=== PATIENT | male | born 1995 | race Caucasian/White ===

== ENCOUNTER 2016-06-02 21:53 | Observation (INO) | payer BC ==
[~2016-06-02] VITALS: Ht 180.3 cm; Wt 107.0 kg
[~2016-06-02 21:53] MED LIST: ESCI10TA17 PO; LORA-741 PO; NPR500 PO; ONDA4TAB10 SL; SUMA50TA15 PO; TRAM-10 PO
[2016-06-02] MEDS ORDERED: SODIUM CHLORIDE 0.9% 1000ML 1,000 ML IV STA ×2 (22:13→22:55)
--- NOTE | 2016-06-02 22:32 | DIAGNOSTIC IMAGING REPORT ---
CHEST ONE VIEW PORTABLE HISTORY: cough, fever COMPARISON: Chest 12/12/2015. FINDINGS: The lungs are clear. Cardiac silhouette is top normal in size. No pleural effusions. No pneumothorax. IMPRESSION: No acute process. Electronically signed by: Alex Wilks M.D. 06/02/2016 10:30 PM Dictated Date/Time: 06/02/2016 10:29 PM
[2016-06-02] MEDS ORDERED: OMEP20CA9 PO (22:34)
[2016-06-02] MEDS ORDERED: ONDA4TAB46 PO (22:34)
[2016-06-02 22:36] LABS: BASO % 0.3 %; BASO ABS # 0.02 K/uL (0-0.2); COMPLETE YES; EOS % 0.9 %; HEMATOCRIT 43.7 % (42-52); IG% 0.3 %; LYMPH % 35.4 %; LYMPH ABS # 2.38 K/uL (1.2-3.4); MEAN CELL VOLUME 85.2 fL (80-100); MEAN CORPUSCULAR HEMOGLOBIN 31.6 pg (25-34); MEAN CORPUSCULAR HGB CONC 37.1 g/dl (32-36); MEAN PLATELET VOLUME 10.6 fL (7.4-10.4); NEUT % 57.1 %; PLATELET COUNT 171 K/uL (130-400); RED BLOOD COUNT 5.13 M/uL (4.7-6.1); WHITE BLOOD COUNT 6.72 K/uL (4.8-10.8)
[2016-06-02 22:54] LABS: BUN/CREATININE RATIO 6.9 (10-20); CALCIUM 9.1 mg/dl (8.5-10.1); CREATININE 0.91 mg/dl (0.60-1.40); POTASSIUM 3.5 mmol/L (3.5-5.1)
[2016-06-02 22:57] LABS: ALB/GLOB RATIO 1.5 (0.9-2)
[2016-06-02] MEDS ORDERED: XYLOCAINE 1%/SOD BICARB 20 ML VIAL INFIL ONE (23:30)
--- NOTE | 2016-06-02 23:43 | EMERGENCY ROOM VISIT NOTE ---
ED Visit Note First contact with patient: 22:07 This Patient was discussed with the physician [employer]former Coil Winder, Anna Barker PA-C. The pertinent historical and physical exam findings were confirmed. I agree with the studies ordered and with the interpretations of these studies. I agree with the disposition and care plan. Lumbar Puncture Indication: Fever and headache, possible meningitis. Verbal consent was obtained after the risks and benefits were explained, including but not limited to headache, bleeding/clotting, scarring, infection, pain, and bone/joint/nerve damage. At this time, the risks of the procedure are less than the risks of NOT performing the procedure. A time out was taken and the correct patient and site identified. The patient was placed in the seated position and the back was prepped with betadine and draped in the standard fashion. The L3 intervertebral space was identified, anesthetized locally with 1 % lidocaine without epinephrine, and the spinal needle was inserted through the skin with the bevel parallel to the dural fibers. The needle was carefully advanced into the lumbar cistern and 4 tubes of clear CSF was obtained. The stylet was replaced and the needle was removed. A bandaid was placed and the patient was placed in the supine position. The patient tolerated the procedure well and there were no complications.
[2016-06-02] MEDS ORDERED: MoRPHine SULFATE 4 MG/ML 1 ML CARP\\VIAL ONE (23:45)
[2016-06-02 23:57] LABS: CSF APPEARANCE CLEAR; CSF COLOR COLORLESS; CSF XANTHOCHROMIC NO XANTHOCHROMIA
[2016-06-02 23:58] LABS: CSF CHEMISTRY TUBE # 2
[2016-06-03 00:06] LABS: CSF TOTAL PROTEIN 52.8 mg/dl (15.0-45.0)
--- NOTE | 2016-06-03 00:39 | EMERGENCY ROOM VISIT NOTE ---
History First contact with patient: 22:07 Chief Complaint: FLU LIKE SX Stated Complaint: FEVER,CHILLS,COUGH,WEAKNESS,COUGH,CONFUSION,GONZÁLES History of Present Illness The patient is a 21 year old male who presents to the Emergency Room with complaints of flulike symptoms which began when he woke up this morning. He states that when he woke up, he felt very weak. He took his temperature and it was 99F. He took Tylenol at that time. The patient reports that throughout the day his symptoms seem to worsen. He has a dry cough and at times has coughed so hard that he throws up. He has had body aches, nausea, neck pain and headache. He denies any diarrhea. He denies any chest pain, shortness of breath, abdominal pain, numbness or weakness. He rates his overall discomfort a 9/10. He does state that his temperature has been as high as 101F today. He last took Tylenol approximately 2 hours ago. 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 He states that he "does not feel like himself." Review of Systems A complete 10-point Review of Systems was discussed with the patient, with pertinent positives and negatives listed in the History of Present Illness. All remaining Review of Systems questions can be considered negative unless otherwise specified. Past Medical/Surgical History Medical Problems: (1) History of reconstruction of anterior cruciate ligament tear Family History Diabetes mellitus Heart disease Hypertension Social History Smoking Status: Current Every Day Smoker Alcohol Use: none Drug Use: none Marital Status: single Housing Status: lives with family Occupation Status: employed, student Current/Historical Medications Scheduled Escitalopram (Lexapro), 10 MG PO DAILY Omeprazole (Prilosec), 20 MG PO QAM Scheduled PRN Lorazepam (Ativan), 0.5 MG PO Q4H PRN for Anxiety Naproxen (Naprosyn), 500 MG PO UD PRN for Migraine Ondansetron Hcl (Zofran), 4 MG PO Q4 PRN for Nausea or Vomiting Sumatriptan Succinate (Imitrex), 50 MG PO UD PRN for Migraine Allergies Coded Allergies: Ampicillin (Verified Allergy, Intermediate, HIVES, 06/02/16) Cefuroxime (Verified Allergy, Mild, HIVES, 06/02/16) Cephalosporins (Verified Allergy, Unknown, 06/02/16) Clindamycin (Verified Allergy, Unknown, 06/02/16) Penicillins (Verified Allergy, Unknown, 06/02/16) Physical Exam Vital Signs Date Time Temp Pulse Resp B/P Pulse Ox O2 Delivery O2 Flow Rate FiO2 06/03/16 02:05 115 16 169/96 99 Room Air 06/03/16 01:20 95 18 144/86 96 Room Air 06/03/16 00:26 98 16 152/91 97 Room Air 06/02/16 23:11 94 16 162/96 Room Air 06/02/16 22:47 36.9 110 16 167/94 97 06/02/16 22:16 109 06/02/16 22:00 37.1 121 20 166/91 98 Room Air Physical Exam VITALS: Vitals are noted on the nurse's note and reviewed by myself. Vital signs stable. GENERAL: This is a 21-year-old male, in no acute distress, nondiaphoretic, well- developed well-nourished. SKIN: The skin was without rashes. EARS: External auditory canals clear, tympanic membranes pearly gomez without erythema or effusion bilaterally. EYES: Pupils equal round and reactive to light and accommodation. Conjunctivae without injection, sclerae without icterus. NOSE: Patent, turbinates without inflammation or discharge. No sinus tenderness. MOUTH: Mucous membranes moist. Tonsils are not enlarged. Pharynx without erythema or exudate. NECK: Supple without nuchal rigidity. There is mild tenderness to palpation of the posterior neck. Negative Brudzinski's. HEART: Regular rate and rhythm without murmurs gallops or rubs. LUNGS: Clear to auscultation bilaterally without wheezes, rales or rhonchi. No retractions or accessory muscle use. ABDOMEN: Soft, nontender to palpation. NEURO: Patient was alert and oriented to person place and time. Medical Decision & Procedures ER Provider Diagnostic Interpretation: CHEST ONE VIEW PORTABLE FINDINGS: The lungs are clear. Cardiac silhouette is top normal in size. No pleural effusions. No pneumothorax. IMPRESSION: No acute process. Laboratory Results 06/02/16 22:15 Red Blood Count 5.13, Mean Corpuscular Volume 85.2, Mean Corpuscular Hemoglobin 31.6, Mean Corpuscular Hemoglobin Concent 37.1, Mean Platelet Volume 10.6, Neutrophils (%) (Auto) 57.1, Lymphocytes (%) (Auto) 35.4, Monocytes (%) (Auto) 6.0, Eosinophils (%) (Auto) 0.9, Basophils (%) (Auto) 0.3, Neutrophils # (Auto) 3.84, Lymphocytes # (Auto) 2.38, Monocytes # (Auto) 0.40, Eosinophils # (Auto) 0.06, Basophils # (Auto) 0.02 06/02/16 22:15 Test 06/02/16 00:00 06/02/16 22:15 06/02/16 22:25 06/02/16 23:24 Influenza Type A Antigen Neg for Influ A (NEG) Influenza Type B Antigen Neg for Influ B (NEG) White Blood Count 6.72 K/uL (4.8-10.8) Red Blood Count 5.13 M/uL (4.7-6.1) Hemoglobin 16.2 g/dL (14.0-18.0) Hematocrit 43.7 % (42-52) Mean Corpuscular Volume 85.2 fL (80-100) Mean Corpuscular Hemoglobin 31.6 pg (25-34) Mean Corpuscular Hemoglobin Concent 37.1 g/dl (32-36) Platelet Count 171 K/uL (130-400) Mean Platelet Volume 10.6 fL (7.4-10.4) Neutrophils (%) (Auto) 57.1 % Lymphocytes (%) (Auto) 35.4 % Monocytes (%) (Auto) 6.0 % Eosinophils (%) (Auto) 0.9 % Basophils (%) (Auto) 0.3 % Neutrophils # (Auto) 3.84 K/uL (1.4-6.5) Lymphocytes # (Auto) 2.38 K/uL (1.2-3.4) Monocytes # (Auto) 0.40 K/uL (0.11-0.59) Eosinophils # (Auto) 0.06 K/uL (0-0.5) Basophils # (Auto) 0.02 K/uL (0-0.2) RDW Standard Deviation 39.9 fL (36.4-46.3) RDW Coefficient of Variation 12.9 % (11.5-14.5) Immature Granulocyte % (Auto) 0.3 % Immature Granulocyte # (Auto) 0.02 K/uL (0.00-0.02) Anion Gap 10.0 mmol/L (3-11) Est Creatinine Clear Calc Drug Dose 159.8 ml/min Estimated GFR () 139.1 Estimated GFR (Non- 120.0 BUN/Creatinine Ratio 6.9 (10-20) Calcium Level 9.1 mg/dl (8.5-10.1) Total Bilirubin 0.3 mg/dl (0.2-1) Aspartate Amino Transf (AST/SGOT) 27 U/L (15-37) Alanine Aminotransferase (ALT/SGPT) 38 U/L (12-78) Alkaline Phosphatase 79 U/L (45-117) Total Protein 7.6 gm/dl (6.4-8.2) Albumin 4.5 gm/dl (3.4-5.0) Globulin 3.1 gm/dl (2.5-4.0) Albumin/Globulin Ratio 1.5 (0.9-2) Monoscreen NEG (NEG) Lactic Acid Level 1.4 mmol/L (0.4-2.0) CSF Color COLORLESS CSF Appearance CLEAR CSF WBC 4 /uL (0-5) CSF RBC 9 /uL (0) CSF Xanthrochromic NO XANTHOCHROMIA CSF Cell Count Tube # 4 CSF Chemistry Tube # 2 CSF Glucose 56 mg/dl (40-70) CSF Total Protein 52.8 mg/dl (15.0-45.0) Medications Administered Medications (Trade) Dose Ordered Sig/[place] Route Start Time Stop Time Status Last Admin Dose Admin Sodium Chloride 1,000 ml @ 999 mls/hr Q1H1M STAT IV 06/02/16 22:13 06/02/16 23:13 DC 06/02/16 22:32 999 MLS/HR Sodium Chloride (Nss 1000ml) 1,000 ml @ 999 mls/hr Q1H1M STAT IV 06/02/16 22:55 06/02/16 23:55 DC 06/02/16 22:55 999 MLS/HR Morphine Sulfate (MoRPHine SULFATE INJ) 4 mg STK-MED ONCE .ROUTE 06/02/16 23:45 06/02/16 23:46 DC 06/02/16 23:45 4 MG Medical Decision Differential diagnosis includes influenza, pneumonia, mononucleosis, meningitis , encephalitis, viral syndrome, among others. The patient was evaluated as above. Labs were drawn and IV access was obtained. Imaging studies were performed and read by radiology as above. The patient was medicated with 2 L normal saline solution and 4 mg of morphine for headache. The patient was reassessed multiple times during their stay in the emergency department and remained in stable condition. The patient is a 21-year-old male who presents today complaining of flulike symptoms. Labs revealed no leukocytosis, electrolyte abnormalities or anemia. Influenza was negative. [place] screen was negative. Chest x-ray was unremarkable. The patient was complaining about significant neck pain involves examination was not suggestive of meningeal irritation, I did offer lumbar puncture to rule out meningitis and the patient was agreeable to this. Lumbar puncture was performed by Dr. Dgugan and CSF was sent for analysis. There was a minimal bump in protein but was otherwise negative. Gram stain showed no organisms. The patient may have a minimal element of viral meningitis but symptoms and workup here is certainly consistent with a viral illness. As the patient was preparing for discharge and went to the bathroom, he apparently saw the blood from his IV site, became vasovagal and had a possible syncopal episode. I reevaluated the patient and did have him drink Gatorade and eat crackers and landed bed for an additional 30 minutes. When he tended to stand up, the patient was not able to take more than 2 steps due to feeling weak and unbalanced. For this reason, the patient will not be able to be discharged. I discussed the case with the [facility] hospitalist, Dr. Hannah, who agreed to evaluate the patient. Impression Primary Impression: Viral illness Departure Information Dispostion Admitted as an inpatient Condition GOOD Referrals Harsh Aguilar M.D. (PCP) Patient Instructions A Signature Page, My [facility] Additional Instructions For pain/fever control, you can use the following [id number] medicines ( if >12 yo): - Regular strength (325mg/tab) Tylenol (acetaminophen) 2 tabs every 4-6 hours as needed. Do not exceed 12 tablets in a 24 hour period. Avoid taking more than 4 grams (4000 mg) of Tylenol per day. This includes any other sources of acetaminophen you may take on a regular basis. - Regular strength (200 mg/tab) Advil (ibuprofen) 1-2 tabs every 4-6 hours as needed. Do not exceed a dose of 3200 mg per day. Rest and drink plenty of fluids. Follow-up with the primary care provider in 2-3 days for further evaluation of your symptoms. Return to the emergency department with worsening headache, worsening neck pain , high fevers, or any other new/concerning symptoms.
[2016-06-03] MEDS ORDERED: MoRPHine SULFATE 4 MG/ML 1 ML CARP\\VIAL IV STA (02:08)
[2016-06-03] MEDS ORDERED: ONDANSETRON INJ 2 MG/ML 2 ML VIAL IV PRN (02:45)
--- NOTE | 2016-06-03 02:50 | History and Physical ---
History & Physical Date & Time of Service: Jun 03, 2016 at 02:39 Chief Complaint: Fever,Chills,Cough,Weakness,Cough,Confusion,[place] Primary Care Physician: Harsh Aguilar M.D. History of Present Illness Source: patient This is a 21 year old male with PMH of depression presents with flu-like symptoms, fevers at home, sweats, cough - presented here and CXR was performed and negative, labwork looked negative; he was c/o headaches - had an LP done; showed mild increase in protein, but no significant findings - he was about to be discharged, but noticed some blood from his IV site and became syncopal. States he feels really weak and lethargic. Continues to have headache. Past Medical/Surgical History Medical Problems: (1) History of reconstruction of anterior cruciate ligament tear Status: Resolved Family History Diabetes mellitus Heart disease Hypertension Social History Smoking Status: Current Every Day Smoker Drug Use: none Marital Status: single Occupational Status: employed, student Immunizations History of Influenza Vaccine: Yes History of Tetanus Vaccine?: Yes History of Pneumococcal: No History of Hepatitis B Vaccine: Yes Multi-Drug Resistant Organisms History of MDRO: No Allergies Coded Allergies: Ampicillin (Verified Allergy, Intermediate, HIVES, 06/02/16) Cefuroxime (Verified Allergy, Mild, HIVES, 06/02/16) Cephalosporins (Verified Allergy, Unknown, 06/02/16) Clindamycin (Verified Allergy, Unknown, 06/02/16) Penicillins (Verified Allergy, Unknown, 06/02/16) Home Medications Scheduled Escitalopram (Lexapro), 10 MG PO DAILY Omeprazole (Prilosec), 20 MG PO QAM Scheduled PRN Lorazepam (Ativan), 0.5 MG PO Q4H PRN for Anxiety Naproxen (Naprosyn), 500 MG PO UD PRN for Migraine Ondansetron Hcl (Zofran), 4 MG PO Q4 PRN for Nausea or Vomiting Sumatriptan Succinate (Imitrex), 50 MG PO UD PRN for Migraine Review of Systems Constitutional: + chills, + fatigue, + fever, + sweats, + weakness, No weight loss Respiratory: + cough, No dyspnea at rest, No dyspnea on exertion, No hemoptysis , No shortness of breath, No sputum, No wheezing Cardiovascular: No chest pain, No edema, No palpitations Abdomen: No GI bleeding, No constipation, No diarrhea, No nausea, No pain, No vomiting Musculoskeletal: No joint pain, No muscle pain Genitourinary - Male: No dysuria, No hematuria, No urinary frequency, No urinary urgency Neurologic: No memory loss Integumentary: No rash Allergic / Immunologic: No environmental allergies, No seasonal allergies Physical Exam Vital Signs Date Time Temp Pulse Resp B/P Pulse Ox O2 Delivery O2 Flow Rate FiO2 06/03/16 02:05 115 16 169/96 99 Room Air 06/03/16 01:20 95 18 144/86 96 Room Air 06/03/16 00:26 98 16 152/91 97 Room Air 06/02/16 23:11 94 16 162/96 Room Air 06/02/16 22:47 36.9 110 16 167/94 97 06/02/16 22:16 109 06/02/16 22:00 37.1 121 20 166/91 98 Room Air General Appearance: + pertinent finding (+anxiety, tearful) Head: normocephalic, atraumatic Eyes: normal inspection ENT: hearing grossly normal Neck: supple Respiratory/Chest: lungs clear, normal breath sounds, no respiratory distress, no accessory muscle use Cardiovascular: regular rate, rhythm, no edema, no murmur Abdomen/GI: normal bowel sounds, non tender, soft Extremities/Musculoskelatal: normal capillary refill, no pedal edema Neurologic/Psych: no motor/sensory deficits, alert, + depressed affect (+ anxious) Skin: normal color Lymphatic: no adenopathy Diagnostics Laboratory Results Results Past 24 Hours Test 06/02/16 22:15 06/02/16 22:25 06/02/16 23:24 Range/Units White Blood Count 6.72 4.8-10.8 K/uL Red Blood Count 5.13 4.7-6.1 M/uL Hemoglobin 16.2 14.0-18.0 g/dL Hematocrit 43.7 42-52 % Mean Corpuscular Volume 85.2 80-100 fL Mean Corpuscular Hemoglobin 31.6 25-34 pg Mean Corpuscular Hemoglobin Concent 37.1 32-36 g/dl Platelet Count 171 130-400 K/uL Mean Platelet Volume 10.6 7.4-10.4 fL Neutrophils (%) (Auto) 57.1 % Lymphocytes (%) (Auto) 35.4 % Monocytes (%) (Auto) 6.0 % Eosinophils (%) (Auto) 0.9 % Basophils (%) (Auto) 0.3 % Neutrophils # (Auto) 3.84 1.4-6.5 K/uL Lymphocytes # (Auto) 2.38 1.2-3.4 K/uL Monocytes # (Auto) 0.40 0.11-0.59 K/uL Eosinophils # (Auto) 0.06 0-0.5 K/uL Basophils # (Auto) 0.02 0-0.2 K/uL RDW Standard Deviation 39.9 36.4-46.3 fL RDW Coefficient of Variation 12.9 11.5-14.5 % Immature Granulocyte % (Auto) 0.3 % Immature Granulocyte # (Auto) 0.02 0.00-0.02 K/uL Sodium Level 141 136-145 mmol/L Potassium Level 3.5 3.5-5.1 mmol/L Chloride Level 106 98-107 mmol/L Carbon Dioxide Level 25 21-32 mmol/L Anion Gap 10.0 3-11 mmol/L Blood Urea Nitrogen 6 7-18 mg/dl Creatinine 0.91 0.60-1.40 mg/dl Est Creatinine Clear Calc Drug Dose 159.8 ml/min Estimated GFR () 139.1 Estimated GFR (Non- 120.0 BUN/Creatinine Ratio 6.9 10-20 Random Glucose 99 70-99 mg/dl Calcium Level 9.1 8.5-10.1 mg/dl Total Bilirubin 0.3 0.2-1 mg/dl Aspartate Amino Transf (AST/SGOT) 27 15-37 U/L Alanine Aminotransferase (ALT/SGPT) 38 12-78 U/L Alkaline Phosphatase 79 45-117 U/L Total Protein 7.6 6.4-8.2 gm/dl Albumin 4.5 3.4-5.0 gm/dl Globulin 3.1 2.5-4.0 gm/dl Albumin/Globulin Ratio 1.5 0.9-2 Monoscreen NEG NEG Lactic Acid Level 1.4 0.4-2.0 mmol/L CSF Color COLORLESS CSF Appearance CLEAR CSF WBC 4 0-5 /uL CSF RBC 9 0 /uL CSF Xanthrochromic NO XANTHOCHROMIA CSF Cell Count Tube # 4 CSF Chemistry Tube # 2 CSF Glucose 56 40-70 mg/dl CSF Total Protein 52.8 15.0-45.0 mg/dl Microbiology Results 06/02/16 Blood Culture, Received Pending 06/02/16 Blood Culture, Received Pending 06/02/16 Gram Stain - Preliminary, Resulted 06/02/16 CSF Culture, Resulted Pending CXR normal Impression Assessment and Plan This is a 21 year old male with PMH of depression presents with flu-like symptoms Viral Infection -->possibly an viral URI -->+cough, +fevers -->+tachycardia, though very anxious -->rapid flu is negative -->CXR negative -->LP performed - no significant findings -->monospot negative -->will obtain flu PCR -->give IVFs, supportive care, rest -->observe overnight and d/c in AM Headaches -->LP done earlier, but headache prior to LP -->has a history of migraines -->will give one dose of Toradol -->may need to restart Imitrex Depression/Anxiety -->continue Lexapro Elevated Blood Pressure reading -->unsure if this is related to viral infection or anxiety -->should f/u as outpatient with PCP and have recheck of BP observe overnight and hopefully d/c home in AM VTE Prophylaxis VTE Risk Assessment Done? Y/N: Yes Risk Level: Very Low
[2016-06-03] MEDS ORDERED: KETOROLAC TROMETHAMINE 30 MG/ML VIAL IV STA (03:52)
[2016-06-03] MEDS: SODIUM CHLORIDE 0.9% 1000ML 1,000 ML IV SCH ×4 (04:11→18:45)
[2016-06-03] MEDS ORDERED: IV FLUIDS COMPLETED PRN (04:15)
[2016-06-03 04:33] VITALS: BP 136/78; PULSE 79; TEMP 36.7; O2SAT 97; Ht 180.3 cm; Wt 107.0 kg
[2016-06-03] MEDS: LORAZEPAM 0.5 MG TAB PO PRN ×4 (04:57→19:08)
[2016-06-03 05:17] LABS: INFLUENZA A PCR Neg for Influ A (NEG); INFLUENZA B PCR Neg for Influ B (NEG)
[2016-06-03] MEDS ORDERED: PNEUMOCOCCAL ADMINISTRATION CHARGE ONE (06:15)
[2016-06-03] MEDS ORDERED: PNEUMOCOCCAL POLYSACCHARIDES 25 MCG/0.5 ML VIAL/SYR IM. ONE (06:15)
[2016-06-03 07:58] VITALS: BP 116/72; PULSE 76; TEMP 36.5; O2SAT 96
[2016-06-03] MEDS: ESCITALOPRAM OXALATE 10 MG TAB PO SCH (08:51)
[2016-06-03] MEDS: PANTOprazole SOD 40 MG TAB PO SCH (08:51)
[2016-06-03] MEDS: ACETAMINOPHEN 325 MG TAB PO PRN ×3 (08:52→19:08)
[2016-06-03 11:40] LABS: HEMATOCRIT 40.7 % (42-52); MEAN CORPUSCULAR HEMOGLOBIN 31.2 pg (25-34); MEAN CORPUSCULAR HGB CONC 35.9 g/dl (32-36); MEAN PLATELET VOLUME 9.9 fL (7.4-10.4); PLATELET COUNT 157 K/uL (130-400); RED BLOOD COUNT 4.68 M/uL (4.7-6.1); WHITE BLOOD COUNT 6.67 K/uL (4.8-10.8)
--- NOTE | 2016-06-03 11:58 | DIAGNOSTIC IMAGING REPORT ---
HEAD CT NONCONTRAST CT DOSE: 687.98 mGy.cm HISTORY: weakness, ambulatory dysfunction, headache TECHNIQUE: Multiaxial CT images of the head were performed without the use of intravenous contrast. Automated exposure control was utilized for this study. Comparison: Head CT 04/09/2016. Findings: The paranasal sinuses and mastoid air cells are clear. The calvarium and skull base are intact. The ventricles and sulci are within normal limits. There is no mass, hematoma, midline shift, or acute infarct. Impression: No acute intracranial abnormality. Electronically signed by: Alex Wilks M.D. 06/03/2016 11:56 AM Dictated Date/Time: 06/03/2016 11:54 AM
--- NOTE | 2016-06-03 13:38 | Progress Note ---
Medicine Progress Note Date & Time of Visit: Jun 03, 2016 at 13:21. Subjective Pt was seen and examined Lying in bed with no acute distress Pt said that he feels very weak Nurse called this morning to notify that he has a unsteady gait Pt said that he under a lot of (family and personal) stress now he said that he is anxiety is getting worst denies any chest pain, palpitation and SOB Objective Last 8 Hrs Date Time Temp Pulse Resp B/P Pulse Ox O2 Delivery O2 Flow Rate FiO2 06/03/16 10:21 Room Air 06/03/16 07:58 36.5 76 16 116/72 96 Room Air Physical Exam: General- no acute distress, flat affect Head- atraumatic Eyes- PERRL, EOMI ENT- oropharynx clear Neck- supple, no JVD Lungs- clear to auscultation and percussion Heart- regular rhythm; no murmur Abdomen- normal bowel sounds, soft Extremities- no pretibial edema, no calf tenderness Neuro- alert, oriented x 3; PERRL, EOMI; no facial palsy; no dysarthria; motor 5 /5 bilaterally; finger to nose intact bilaterally Skin- warm & dry Laboratory Results: Last 24 Hours Test 06/02/16 22:15 06/02/16 22:25 06/02/16 23:24 06/03/16 03:40 White Blood Count 6.72 K/uL Red Blood Count 5.13 M/uL Hemoglobin 16.2 g/dL Hematocrit 43.7 % Mean Corpuscular Volume 85.2 fL Mean Corpuscular Hemoglobin 31.6 pg Mean Corpuscular Hemoglobin Concent 37.1 g/dl Platelet Count 171 K/uL Mean Platelet Volume 10.6 fL Neutrophils (%) (Auto) 57.1 % Lymphocytes (%) (Auto) 35.4 % Monocytes (%) (Auto) 6.0 % Eosinophils (%) (Auto) 0.9 % Basophils (%) (Auto) 0.3 % Neutrophils # (Auto) 3.84 K/uL Lymphocytes # (Auto) 2.38 K/uL Monocytes # (Auto) 0.40 K/uL Eosinophils # (Auto) 0.06 K/uL Basophils # (Auto) 0.02 K/uL RDW Standard Deviation 39.9 fL RDW Coefficient of Variation 12.9 % Immature Granulocyte % (Auto) 0.3 % Immature Granulocyte # (Auto) 0.02 K/uL Sodium Level 141 mmol/L Potassium Level 3.5 mmol/L Chloride Level 106 mmol/L Carbon Dioxide Level 25 mmol/L Anion Gap 10.0 mmol/L Blood Urea Nitrogen 6 mg/dl Creatinine 0.91 mg/dl Est Creatinine Clear Calc Drug Dose 159.8 ml/min Estimated GFR () 139.1 Estimated GFR (Non- 120.0 BUN/Creatinine Ratio 6.9 Random Glucose 99 mg/dl Calcium Level 9.1 mg/dl Total Bilirubin 0.3 mg/dl Aspartate Amino Transf (AST/SGOT) 27 U/L Alanine Aminotransferase (ALT/SGPT) 38 U/L Alkaline Phosphatase 79 U/L Total Protein 7.6 gm/dl Albumin 4.5 gm/dl Globulin 3.1 gm/dl Albumin/Globulin Ratio 1.5 Monoscreen NEG Lactic Acid Level 1.4 mmol/L CSF Color COLORLESS CSF Appearance CLEAR CSF WBC 4 /uL CSF RBC 9 /uL CSF Xanthrochromic NO XANTHOCHROMIA CSF Cell Count Tube # 4 CSF Chemistry Tube # 2 CSF Glucose 56 mg/dl CSF Total Protein 52.8 mg/dl Influenza Type A (RT-PCR) Neg for Influ A Influenza Type B (RT-PCR) Neg for Influ B Test 06/03/16 11:30 White Blood Count 6.67 K/uL Red Blood Count 4.68 M/uL Hemoglobin 14.6 g/dL Hematocrit 40.7 % Mean Corpuscular Volume 87.0 fL Mean Corpuscular Hemoglobin 31.2 pg Mean Corpuscular Hemoglobin Concent 35.9 g/dl RDW Standard Deviation 42.0 fL RDW Coefficient of Variation 13.2 % Platelet Count 157 K/uL Mean Platelet Volume 9.9 fL Vitamin B12 Level 602 pg/mL Folate 15.34 ng/mL Thyroid Stimulating Hormone (TSH) 1.350 uIu/ml Date/Time Source Procedure Growth Status 06/02/16 22:25 Blood Blood Culture Pending Received 06/02/16 22:15 Blood Blood Culture Pending Received 06/02/16 23:35 Cerebral Spinal Fluid Gram Stain - Final Resulted 06/02/16 23:35 Cerebral Spinal Fluid CSF Culture Pending Resulted Assessment & Plan Malaise and Weakness possibly related to viral etiology rapid flu and Flu PCR negative CXR negative LP performed - no significant findings monospot negative give IVFs, supportive care, rest Electrolytes WNL Hbg and B12 normal No focal neurology deficit Headaches LP done earlier, but headache prior to LP has a history of migraines CT head done today negative Unsteady gait No focal neurology deficit finding on exam CT head negative Physical therapy fall precaution Depression/Anxiety Worsening denies any suicidal thought continue Lexapro PCP or psychiatrist to consider to increase lexapro Elevated Blood Pressure reading Mostly related to anxiety Continue monitor stable Code Status Full code DVT px Pt ambulates Disposition will discharge home today Follow up appointment with your PCP Dr. Aguilar on 06/07 at 11:10 am Consultants: PT Current Inpatient Medications: Current Inpatient Medications Medications (Trade) Dose Ordered Sig/[place] Route Start Time Stop Time Status Last Admin Dose Admin Acetaminophen (Tylenol Tab) 650 mg Q4H PRN PO 06/03/16 02:45 07/03/16 02:44 06/03/16 12:38 650 MG Ondansetron HCl (Zofran Inj) 4 mg Q6H PRN IV 06/03/16 02:45 07/03/16 02:44 Escitalopram Oxalate (Lexapro Tab) 10 mg DAILY PO 06/03/16 08:00 07/03/16 08:59 06/03/16 08:51 10 MG Lorazepam (Ativan Tab) 0.5 mg Q4H PRN PO 06/03/16 02:45 07/03/16 02:44 06/03/16 12:37 0.5 MG Pantoprazole Sodium 40 mg 40 mg QAM PO 06/03/16 08:00 07/03/16 08:59 06/03/16 08:51 40 MG Sodium Chloride (Nss 1000ml) 1,000 ml @ 125 mls/hr Q8H IV 06/03/16 02:45 07/03/16 02:44 06/03/16 12:38 125 MLS/HR Miscellaneous (Iv Fluids Completed) 1 ea PRN PRN N/A 06/03/16 04:15 06/03/17 04:14 06/03/16 12:38 1 EA
[2016-06-03 15:06] VITALS: BP 117/78; PULSE 65; TEMP 36.7; O2SAT 96
[2016-06-03 16:05] VITALS: O2SAT 96
--- NOTE | 2016-06-03 17:26 | Discharge Instructions ---
Discharge Instructions Admission Reason for Admission: Viral Illness Discharge Discharge Diagnosis / Problem: Malaise, Anxiety Discharge Goals Goal(s): Decrease discomfort, Improve function, Improve disease control Activity Recommendations Activity Limitations: resume your previous activity . Instructions / Follow-Up Instructions / Follow-Up Follow up appointment with your primary care provider Dr. Aguilar on 06/07 at 11: 10 am Fall precaution Note was given to return to work on Saturday Nurse liaison arranged for outpatient psych follow up. they will call him for the appointment. Current Hospital Diet Patient's current hospital diet: Regular Diet Discharge Diet Recommended Diet: Regular Diet Pending Studies Studies pending at discharge: no Medical Emergencies . Who to Call and When: Medical Emergencies: If at any time you feel your situation is an emergency, please call 911 immediately. . Non-Emergent Contact Non-Emergency issues call your: Primary Care Provider Call Non-Emergent contact if: you have a fever, you have any medication questions . . "Provider Documentation" section prepared by Imani Aguilar. VTE Core Measure Inpt VTE Proph given/why not?: Treatment not indicated (able to ambulate)
[2016-06-03 17:58] VITALS: BP_SYST 117; BP_SYST 119; BP_DIAS 66; BP_DIAS 78; PULSE 55; PULSE 65; TEMP 36.6; TEMP 36.7; O2SAT 96; O2SAT 98
--- NOTE | 2016-06-03 22:34 | Progress Note ---
Progress Note Order placed for discharge home. Called from nurse that pt unable to walk to the bathroom due to unsteady gait. I came to his room to talk to him with his mother at bedside. Pt felt his legs were weak and was unable to stand. we helped him to go to the bathroom. Pt did not feel comfortable to go home and mother was not comfortable to care for him at home. Discussed with patient that his CT head and lab were negative. Pt was in tears. Discharged was cancel. Consult psych for conversion disorder. Mother said patient has been under a lot stress lately.
[2016-06-03] MEDS ORDERED: NURSING VERBAL MED ORDER ONE (23:15)
[2016-06-04] VITALS: O2SAT 96
[2016-06-04] MEDS: LORAZEPAM 0.5 MG TAB PO PRN ×2 (00:19→09:04)
[2016-06-04] MEDS: ACETAMINOPHEN 325 MG TAB PO PRN (00:20)
[2016-06-04 08:28] VITALS: BP 119/66; PULSE 55; TEMP 36.6; O2SAT 98
[2016-06-04] MEDS: ESCITALOPRAM OXALATE 10 MG TAB PO SCH (09:04)
[2016-06-04] MEDS: PANTOprazole SOD 40 MG TAB PO SCH (09:04)
--- NOTE | 2016-06-04 09:30 | Psychiatric Consultation ---
Consultation Identifying Data Simon is a 21 yo male who lives in [place] with his family. Consult is by Dr. Aguilar for anxiety and possible conversion disorder. Chief Complaint "just alot of stress". 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 He is currently on break from classes so not feeling as stressed as he was a few weeks ago but states that he anticipates anxiety to increase again when classes resume on 06/18/16. He is not on campus much so doesn't anticipate he'd be able to seek assistance at the student counseling center. He adds that he was initially started on Lexapro in high school for migraine headaches. He recently restarted it consistently about 3 weeks ago. He feels his mom thinks it's helpful but he is not sure and feels a bit tired on it, admittedly doesn't take it at a consistent time. He also uses prn Ativan about once a month (or less) for more severe breakthrough anxiety. He denies history of panic or any history of suicidal thoughts. He recognizes that he was emotional yesterday and denies that his mom dating someone is any big deal to him. He recalls feeling faint in the ED, just weak yesterday with some headache. He does desire to go home today. His labs were relatively normal and tested negative for flu but continues with cough/achiness/general flu like symptoms. Past Psychiatric History Current OP Treatment: no current treatment Prior OP Treatment: no prior treatment (meds by Dr. George) no prior psych hospitalizations or suicide attempts. Past Medical/Surgical History Problem List: (1) Upper respiratory infection (2) Headache (3) Concussion Allergies Allergies: Coded Allergies: Ampicillin (Verified Allergy, Intermediate, HIVES, 06/02/16) Cefuroxime (Verified Allergy, Mild, HIVES, 06/02/16) Cephalosporins (Verified Allergy, Unknown, 06/02/16) Clindamycin (Verified Allergy, Unknown, 06/02/16) Penicillins (Verified Allergy, Unknown, 06/02/16) Home Medications Scheduled Escitalopram (Lexapro), 10 MG PO DAILY Omeprazole (Prilosec), 20 MG PO QAM Scheduled PRN Lorazepam (Ativan), 0.5 MG PO Q4H PRN for Anxiety Naproxen (Naprosyn), 500 MG PO UD PRN for Migraine Ondansetron Hcl (Zofran), 4 MG PO Q4 PRN for Nausea or Vomiting Sumatriptan Succinate (Imitrex), 50 MG PO UD PRN for Migraine Family History Diabetes mellitus Heart disease Hypertension family psych history denied Alcohol Use Alcohol Use In Past 12 Months: Yes beer rarely Substance History rare pot Personal History Education: graduated from high school, started college ([employer], desires to become RN or PA) Work History: personal development coach Relationship History: never Children: none Legal History: none Abuse History: none Review of Systems Psych: denies symptoms other than stated above Constitutional: fatigue Cardiovascular: denied GI: denied, eating well Neurologic: feels unsteady due to weakness Remainder of 10 body systems also reviewed and denied other than noted above. Examination Vital Signs Vital Signs Past 12 Hours Date Time Temp Pulse Resp B/P Pulse Ox O2 Delivery O2 Flow Rate FiO2 06/04/16 08:28 36.6 55 16 119/66 98 Room Air 06/04/16 00:00 96 Room Air Laboratory Results Last 24 Hours Test 06/03/16 11:30 White Blood Count 6.67 K/uL Red Blood Count 4.68 M/uL Hemoglobin 14.6 g/dL Hematocrit 40.7 % Mean Corpuscular Volume 87.0 fL Mean Corpuscular Hemoglobin 31.2 pg Mean Corpuscular Hemoglobin Concent 35.9 g/dl RDW Standard Deviation 42.0 fL RDW Coefficient of Variation 13.2 % Platelet Count 157 K/uL Mean Platelet Volume 9.9 fL Vitamin B12 Level 602 pg/mL Folate 15.34 ng/mL Thyroid Stimulating Hormone (TSH) 1.350 uIu/ml Mental Examination During interview pt is: alert and oriented Appearance: appropriately groomed Eye contact is: fair Motor behavior is: no abnormal motor movements Speech: normal in rate, rhythm & volume Affect: blunted Mood is: other ("blah") Thought process: clear, coherent Thought content: reality based without delusions Suicidal thought are: denied Homicidal thoughts are: denied Hallucinations: denies auditory, denies visual Cognition: memory grossly intact, attention grossly intact, language grossly intact Intelligence estimated to be: consistent with level of education Insight: fair Judgement: fair Impression / Recommendations Impression 21 yo male with history of anxiety stressed 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 Had persistent GONZÁLES and some unsteady gait/ generalized weakness after LP which could also be consistent with migraine variant. Risk Factors Assessment Access to guns: Yes (vashti) Recommendations no indication for inpatient psychiatric admission patient is agreeable to therapy services intake at [facility] to work on LALIT/coping skills. Could be referred to psychiatry as necessary from there f/u with PCP for consideration of Lexapro titration, concerned he may still have some sedation from it--if ultimately switched would recommend trial of Prozac patient aware not to combine Ativan with driving/ETOH liaison to touch base with mother to confirm hx, safety plan, standard weapon recs. may make sense to give Ativan prn just prior to discharge if persistent physical complaints interfering with discharge would treat patient as migraine variant.
--- NOTE | 2016-06-04 12:33 | Progress Note ---
Medicine Progress Note Date & Time of Visit: Jun 04, 2016 at 12:20. Subjective Pt was seen and examined Lying in bed with no distress Pt said that he feels a little bit better denies any suicidal thought, hallucination, chest pain and palpitation he saw psych today and the nurse liaison will arrange for follow up psych appt as an outpatient He refused outpatient physical therapy Objective Last 8 Hrs Date Time Temp Pulse Resp B/P Pulse Ox O2 Delivery O2 Flow Rate FiO2 06/04/16 09:59 Room Air 06/04/16 08:28 36.6 55 16 119/66 98 Room Air Physical Exam: General- no acute distress, flat affect Head- atraumatic Eyes- PERRL, EOMI ENT- oropharynx clear Neck- supple, no JVD Lungs- clear to auscultation and percussion Heart- regular rhythm; no murmur Abdomen- normal bowel sounds, soft Extremities- no pretibial edema, no calf tenderness Neuro- alert, oriented x 3; PERRL, EOMI; no facial palsy; no dysarthria; motor 5 /5 bilaterally; finger to nose intact bilaterally Skin- warm & dry Assessment & Plan Malaise and Weakness possibly related to viral etiology rapid flu and Flu PCR negative CXR negative LP performed - no significant findings monospot negative give IVFs, supportive care, rest Electrolytes WNL Hbg and B12 normal No focal neurology deficit Headaches LP done earlier, but headache prior to LP has a history of migraines CT head done today negative Unsteady gait No focal neurology deficit finding on exam CT head negative Physical therapy fall precaution Recommend outpatient physical therapy but Pt refused Pt refused any assisting device to help him with ambulation Depression/Anxiety Worsening denies any suicidal thought continue Lexapro Psych consulted recommend lexapro to titrate by pcp, if he cannot tolerate it due to lethargy/drowsiness, can be change to Prozac. Pt agreed to therapy services intake at [facility] to work on LALIT/coping skills Liaison Nurse arranged for outpatient psych follow up. Elevated Blood Pressure reading Mostly related to anxiety Continue monitor stable Code Status Full code DVT px Pt ambulates Disposition will discharge home today Follow up appointment with your PCP Dr. Aguilar on 06/07 at 11:10 am Follow up with psych (Liaison nurse will arrange for the appointment) fall precaution Consultants: PT Psych Current Inpatient Medications: Current Inpatient Medications Medications (Trade) Dose Ordered Sig/[place] Route Start Time Stop Time Status Last Admin Dose Admin Acetaminophen (Tylenol Tab) 650 mg Q4H PRN PO 06/03/16 02:45 07/03/16 02:44 06/04/16 00:20 650 MG Ondansetron HCl (Zofran Inj) 4 mg Q6H PRN IV 06/03/16 02:45 07/03/16 02:44 Escitalopram Oxalate (Lexapro Tab) 10 mg DAILY PO 06/03/16 08:00 07/03/16 08:59 06/04/16 09:04 10 MG Lorazepam (Ativan Tab) 0.5 mg Q4H PRN PO 06/03/16 02:45 07/03/16 02:44 06/04/16 09:04 0.5 MG Pantoprazole Sodium (Protonix Tab) 40 mg QAM PO 06/03/16 08:00 07/03/16 08:59 06/04/16 09:04 40 MG Miscellaneous (Iv Fluids Completed) 1 ea PRN PRN N/A 06/03/16 04:15 06/03/17 04:14 06/03/16 12:38 1 EA
--- NOTE | 2016-06-05 22:51 | Discharge Summary ---
Discharge Summary Admission Date: Jun 03, 2016 at 02:39 Discharge Date: Jun 03, 2016 Discharge Disposition: Home Principal Diagnosis: Anxiety/Depression Secondary Diagnoses/Problems: Malaise anxiety unsteady gait Consultations: PT Psych Medication Reconciliation Continued Medications: Escitalopram (Lexapro) 10 Mg Tab 10 MG PO DAILY, TAB Lorazepam (Ativan) 0.5 Mg Tab 0.5 MG PO Q4H PRN for Anxiety, TAB Naproxen (Naprosyn) 500 Mg Tab 500 MG PO UD PRN for Migraine, TAB Omeprazole (Prilosec) 20 Mg Cap 20 MG PO QAM, #30 Ondansetron Hcl (Zofran) 4 Mg Tab 4 MG PO Q4 PRN for Nausea or Vomiting, #20 Sumatriptan Succinate (Imitrex) 50 Mg Tab 50 MG PO UD PRN for Migraine, TAB Admission Information HPI (per Admitting provider): This is a 21 year old male with PMH of depression presents with flu-like symptoms, fevers at home, sweats, cough - presented here and CXR was performed and negative, labwork looked negative; he was c/o headaches - had an LP done; showed mild increase in protein, but no significant findings - he was about to be discharged, but noticed some blood from his IV site and became syncopal. States he feels really weak and lethargic. Continues to have headache. Physical Exam (per Admitting): General Appearance: + pertinent finding (+anxiety, tearful) Head: normocephalic, atraumatic Eyes: normal inspection ENT: hearing grossly normal Neck: supple Respiratory/Chest: lungs clear, normal breath sounds, no respiratory distress, no accessory muscle use Cardiovascular: regular rate, rhythm, no edema, no murmur Abdomen/GI: normal bowel sounds, non tender, soft Extremities/Musculoskelatal: normal capillary refill, no pedal edema Neurologic/Psych: no motor/sensory deficits, alert, + depressed affect (+ anxious) Skin: normal color Lymphatic: no adenopathy Hospital Course Malaise and Weakness possibly related to viral etiology rapid flu and Flu PCR negative CXR negative LP performed - no significant findings monospot negative give IVFs, supportive care, rest Electrolytes WNL Hbg and B12 normal No focal neurology deficit Headaches LP done earlier, but headache prior to LP has a history of migraines CT head done today negative Unsteady gait No focal neurology deficit finding on exam CT head negative Physical therapy fall precaution Recommend outpatient physical therapy but Pt refused Pt refused any assisting device to help him with ambulation Depression/Anxiety Worsening denies any suicidal thought continue Lexapro Psych consulted recommend lexapro to titrate by pcp, if he cannot tolerate it due to lethargy/drowsiness, can be change to Prozac. Pt agreed to therapy services intake at [facility] to work on LALIT/coping skills Liaison Nurse arranged for outpatient psych follow up. Elevated Blood Pressure reading Mostly related to anxiety Continue monitor stable Code Status Full code DVT px Pt ambulates Disposition will discharge home today Follow up appointment with your PCP Dr. Aguilar on 06/07 at 11:10 am Follow up with psych (Liaison nurse will arrange for the appointment) fall precaution Total time spent on discharge = 35 minutes This includes examination of the patient, discharge planning, medication reconciliation, and communication with other providers. Discharge Instructions Discharge Instructions Admission Reason for Admission: Viral Illness Discharge Discharge Diagnosis / Problem: Malaise, Anxiety Discharge Goals Goal(s): Decrease discomfort, Improve function, Improve disease control Activity Recommendations Activity Limitations: resume your previous activity . Instructions / Follow-Up Instructions / Follow-Up Follow up appointment with your primary care provider Dr. Aguilar on 06/07 at 11: 10 am Fall precaution Note was given to return to work on Saturday Nurse liaison arranged for outpatient psych follow up. they will call him for the appointment. Current Hospital Diet Patient's current hospital diet: Regular Diet Discharge Diet Recommended Diet: Regular Diet Pending Studies Studies pending at discharge: no Medical Emergencies . Who to Call and When: Medical Emergencies: If at any time you feel your situation is an emergency, please call 911 immediately. . Non-Emergent Contact Non-Emergency issues call your: Primary Care Provider Call Non-Emergent contact if: you have a fever, you have any medication questions . . "Provider Documentation" section prepared by Imani Aguilar. VTE Core Measure Inpt VTE Proph given/why not?: Treatment not indicated (able to ambulate) Additional Copies To Harsh Aguilar M.D.
[2016-08-08] MEDS ORDERED: OXYC-57 PO (22:17)
[2016-08-14] MEDS ORDERED: FLUO20CA36 PO (15:31)
[2016-08-14] MEDS ORDERED: ATV5X PO (15:31)
[2016-08-19] MEDS ORDERED: RXC5 PO (18:13)
[2016-08-19] MEDS ORDERED: PRT40 PO (18:13)
[2016-08-19] MEDS ORDERED: NRN300 PO (18:13)
[2016-08-19] MEDS ORDERED: FLUO20CA36 PO (18:13)
== END 2016-06-04 12:30 | disposition home or self-care (01) ==
LOC: ENRESERVTM → ENRESERVDT → C.EDB 21:53 → C.4E 06-03 02:39
PROVIDERS: ADMIT Family Medicine; ATTEND Internal Medicine
DX: R53.81 Other malaise (principal); F41.8 Other specified anxiety disorders; F17.210 Nicotine dependence, cigarettes, uncomplicated

== ENCOUNTER 2016-08-08 14:27 | Observation (INO) | payer BC ==
[~2016-08-08] VITALS: Ht 177.8 cm; Wt 90.9 kg
[~2016-08-08 14:27] MED LIST changes: +OMEP20CA9 PO; -ONDA4TAB10 SL; +ONDA4TAB46 PO; -TRAM-10 PO
[2016-08-08 15:48] LABS: BASO % 0.2 %; BASO ABS # 0.04 K/uL (0-0.2); COMPLETE YES; EOS % 4.4 %; HEMATOCRIT 44.6 % (42-52); IG% 0.2 %; LYMPH % 14.2 %; LYMPH ABS # 2.34 K/uL (1.2-3.4); MEAN CELL VOLUME 86.9 fL (80-100); MEAN CORPUSCULAR HEMOGLOBIN 31.6 pg (25-34); MEAN CORPUSCULAR HGB CONC 36.3 g/dl (32-36); MEAN PLATELET VOLUME 10.1 fL (7.4-10.4); MONO % 7.4 %; NEUT % 73.6 %; PLATELET COUNT 205 K/uL (130-400); RED BLOOD COUNT 5.13 M/uL (4.7-6.1); WHITE BLOOD COUNT 16.44 K/uL (4.8-10.8)
[2016-08-08 16:09] LABS: ALT/SGPT 35 U/L (12-78); AST/SGOT 15 U/L (15-37); BLOOD UREA NITROGEN 11 mg/dl (7-18); BUN/CREATININE RATIO 13.1 (10-20); CALCIUM 9.6 mg/dl (8.5-10.1); CARBON DIOXIDE 30 mmol/L (21-32); CHLORIDE 106 mmol/L (98-107); CREATININE 0.81 mg/dl (0.60-1.40); GLUCOSE 95 mg/dl (70-99); POTASSIUM 3.6 mmol/L (3.5-5.1); SODIUM 142 mmol/L (136-145)
[2016-08-08 16:14] LABS: ALKALINE PHOSPHATASE 88 U/L (45-117)
[2016-08-08] MEDS ORDERED: OPTIRAY 320 IV PRN (16:45)
[2016-08-08] MEDS ORDERED: ONDANSETRON INJ 2 MG/ML 2 ML VIAL IV STA (17:16)
[2016-08-08] MEDS ORDERED: MoRPHine SULFATE 4 MG/ML 1 ML CARP\\VIAL IV STA (17:16)
[2016-08-08 17:25] LABS: URINE APPEARANCE TURBID (CLEAR); URINE BILIRUBIN NEG (NEG); URINE COLOR YELLOW; URINE EPITHELIAL CELL AUTO 0-5 /lpf (0-5); URINE NITRITE NEG (NEG); URINE PH 7.5 (4.5-7.5); URINE SPECIFIC GRAVITY 1.012 (1.000-1.030); UROBILINOGEN NEG (NEG)
[2016-08-08 17:29] LABS: MANUAL MICROSCOPIC REQUIRED? NO; REVIEW REQ? NO
[2016-08-08] MEDS ORDERED: HYDROmorphone INJ 0.5 MG/0.5 ML SYR IV STA ×2 (18:48→19:59)
--- NOTE | 2016-08-08 18:49 | EMERGENCY ROOM VISIT NOTE ---
History First contact with patient: 15:29 Chief Complaint: ABDOMINAL PAIN Stated Complaint: ABD. PAIN Nursing Triage Summary: Pt c/o center and right side stomach pain since this morning, went home at (works nights) woke up at 11 and took zofran and tylenol and "it keeps getting worse". Denies n/v/d. History of Present Illness The patient is a 21 year old male who presents to the Emergency Room with complaints of central and right upper abdominal pain. The patient reports that his discomfort started this morning after getting home from work. He tried to lay down and sleep and was awakened with the discomfort. He reports that it as a constant achy sensation. It does not radiate through to the back, chest, shoulder or neck. He denies any nausea, vomiting, diarrhea or constipation. The patient denies any significant NSAIDs, caffeine or alcohol use. The patient denies any history of bowel disease or prior abdominal surgeries. He currently rates his discomfort a 6 out of 10. He denies any alleviating or aggravating factors for his pain. Review of Systems HEENT: Denies dizziness, visual problems, hearing loss, tinnitus. Denies difficulty swallowing or oral lesions. PULMONARY: Denies cough, shortness of breath, sputum production or hemoptysis. CARDIOVASCULAR: Denies chest pain, palpitations, dyspnea on exertion, orthopnea or peripheral edema. GASTROINTESTINAL: Denies diarrhea, constipation, nausea or vomiting, otherwise see history of present illness. GENITOURINARY: Denies dysuria, frequency, urgency or nocturia. NEUROLOGIC: Denies history of epilepsy, CVA, TIA or chronic headaches. MUSCULOSKELETAL: Denies history of joint tenderness/swelling. SKIN: Denies rashes or lesions. PSYCHIATRIC: Denies history of depression or mental illness. ENDOCRINE: Denies history of diabetes or thyroid disorders. Past Medical/Surgical History Medical Problems: (1) History of reconstruction of anterior cruciate ligament tear (2) Pneumonia Family History Diabetes mellitus Heart disease Hypertension Social History Smoking Status: Current Every Day Smoker Alcohol Use: none Drug Use: none Marital Status: single Housing Status: lives with family Occupation Status: employed, student Current/Historical Medications Scheduled Fluoxetine HCl (Fluoxetine HCl), 20 MG PO DAILY Scheduled PRN Lorazepam (Lorazepam), 0.5 MG PO DAILY PRN for Anxiety Allergies Coded Allergies: Ampicillin (Verified Allergy, Intermediate, HIVES, 06/02/16) Cefuroxime (Verified Allergy, Mild, HIVES, 06/02/16) Cephalosporins (Verified Allergy, Unknown, 06/02/16) Clindamycin (Verified Allergy, Unknown, 06/02/16) Penicillins (Verified Allergy, Unknown, 06/02/16) Physical Exam Vital Signs Date Time Temp Pulse Resp B/P Pulse Ox O2 Delivery O2 Flow Rate FiO2 08/08/16 19:21 89 20 133/80 95 Room Air 08/08/16 17:23 79 18 149/88 99 Room Air 08/08/16 16:44 62 08/08/16 16:30 97 Room Air 08/08/16 14:53 37.2 90 16 146/88 99 Room Air Physical Exam CONSTITUTIONAL: Healthy and well nourished. Alert and oriented X 3 with positive affect. Patient does not appear in any acute distress on exam. HEENT: Normocephalic, atraumatic. Pupils equal, round and reactive. Ears and nares are clear. No scleral icterus or conjunctival injection/pallor. OROPHARYNX: No tonsillar hypertrophy or exudates. NECK: Full active range of motion without discomfort. Line LYMPHATICS: No cervical chain adenopathy. RESPIRATORY: Clear to auscultation bilaterally with no wheezing, crackles, rhonchi or stridor. CARDIOVASCULAR: Regular rate and rhythm with no murmurs, rubs or gallops. GASTROINTESTINAL: The patient has diffuse central abdominal tenderness to palpation. No rigidity, guarding or rebound. Negative Hughes sign. Negative CVA tenderness. Negative McBurney's point tenderness. MUSCULOSKELETAL: Full range of motion of all joints without discomfort. INTEGUMENTARY: No rash or other significant dermatologic conditions noted. HEMATOLOGIC: No ecchymosis or petechiae noted. NEUROLOGIC: No focal neurologic deficits noted. Medical Decision & Procedures ER Provider Diagnostic Interpretation: My interpretation of an ECG shows a normal sinus rhythm of [address] elevation or other conduction abnormalities. Enhanced CT of the abdomen and pelvis confirms an acute appendicitis. Radiologist report is as follows: CT OF THE ABDOMEN AND PELVIS WITH CONTRAST CLINICAL HISTORY: Abdominal pain. Leukocytosis. COMPARISON STUDY: CT of the abdomen and pelvis October 17, 2010. TECHNIQUE: Following IV administration of 92 mL of Optiray-320, axial images of the abdomen and pelvis were obtained from the lung bases to the proximal femurs. Images were reviewed in the axial, sagittal, and coronal planes. IV contrast was administered without complication. Oral contrast was administered. CT DOSE: 439.69 mGy.cm FINDINGS: Liver, spleen, adrenal glands, kidneys and pancreas are normal. There is no evidence for a bowel obstruction. The appendix is dilated, measuring 1 cm in caliber. The appendix is fluid-filled. There is mild periappendiceal infiltration. There is no free air or abscess. There is grade I anterolisthesis of L5 on S1 due to bilateral L5 pars defects. IMPRESSION: Acute appendicitis. No free air or abscess. Laboratory Results 08/08/16 15:25 Red Blood Count 5.13, Mean Corpuscular Volume 86.9, Mean Corpuscular Hemoglobin 31.6, Mean Corpuscular Hemoglobin Concent 36.3, Mean Platelet Volume 10.1, Neutrophils (%) (Auto) 73.6, Lymphocytes (%) (Auto) 14.2, Monocytes (%) (Auto) 7.4, Eosinophils (%) (Auto) 4.4, Basophils (%) (Auto) 0.2, Neutrophils # (Auto) 12.08, Lymphocytes # (Auto) 2.34, Monocytes # (Auto) 1.21, Eosinophils # (Auto) 0.73, Basophils # (Auto) 0.04 08/08/16 15:25 Test 08/08/16 15:25 White Blood Count 16.44 K/uL (4.8-10.8) Red Blood Count 5.13 M/uL (4.7-6.1) Hemoglobin 16.2 g/dL (14.0-18.0) Hematocrit 44.6 % (42-52) Mean Corpuscular Volume 86.9 fL (80-100) Mean Corpuscular Hemoglobin 31.6 pg (25-34) Mean Corpuscular Hemoglobin Concent 36.3 g/dl (32-36) Platelet Count 205 K/uL (130-400) Mean Platelet Volume 10.1 fL (7.4-10.4) Neutrophils (%) (Auto) 73.6 % Lymphocytes (%) (Auto) 14.2 % Monocytes (%) (Auto) 7.4 % Eosinophils (%) (Auto) 4.4 % Basophils (%) (Auto) 0.2 % Neutrophils # (Auto) 12.08 K/uL (1.4-6.5) Lymphocytes # (Auto) 2.34 K/uL (1.2-3.4) Monocytes # (Auto) 1.21 K/uL (0.11-0.59) Eosinophils # (Auto) 0.73 K/uL (0-0.5) Basophils # (Auto) 0.04 K/uL (0-0.2) RDW Standard Deviation 42.5 fL (36.4-46.3) RDW Coefficient of Variation 13.3 % (11.5-14.5) Immature Granulocyte % (Auto) 0.2 % Immature Granulocyte # (Auto) 0.04 K/uL (0.00-0.02) Urine Color YELLOW Urine Appearance TURBID (CLEAR) Urine pH 7.5 (4.5-7.5) Urine Specific [place] 1.012 (1.000-1.030) Urine Protein NEG (NEG) Urine Glucose (UA) NEG (NEG) Urine Ketones NEG (NEG) Urine Occult Blood NEG (NEG) Urine Nitrite NEG (NEG) Urine Bilirubin NEG (NEG) Urine Urobilinogen NEG (NEG) Urine Leukocyte Esterase NEG (NEG) Urine WBC (Auto) 0 /hpf (0-5) Urine RBC (Auto) 0-4 /hpf (0-4) Urine Hyaline Casts (Auto) 1-5 /lpf (0-5) Urine Epithelial Cells (Auto) 0-5 /lpf (0-5) Urine Bacteria (Auto) NEG (NEG) Anion Gap 6.0 mmol/L (3-11) Est Creatinine Clear Calc Drug Dose 164.5 ml/min Estimated GFR () 147.2 Estimated GFR (Non- 127.0 BUN/Creatinine Ratio 13.1 (10-20) Calcium Level 9.6 mg/dl (8.5-10.1) Total Bilirubin 0.4 mg/dl (0.2-1) Direct Bilirubin < 0.1 mg/dl (0-0.2) Aspartate Amino Transf (AST/SGOT) 15 U/L (15-37) Alanine Aminotransferase (ALT/SGPT) 35 U/L (12-78) Alkaline Phosphatase 88 U/L (45-117) Total Creatine Kinase 83 U/L (39-308) Troponin I < 0.015 ng/ml (0-0.045) Total Protein 7.8 gm/dl (6.4-8.2) Albumin 4.6 gm/dl (3.4-5.0) Lipase 87 U/L (73-393) The above labs were reviewed. The patient has a moderately cytosis with left shift and bandemia. Urinalysis is normal. LFTs and lipase are normal. Troponin is normal. Medications Administered Medications (Trade) Dose Ordered Sig/[place] Route Start Time Stop Time Status Last Admin Dose Admin Morphine Sulfate (MoRPHine SULFATE INJ) 4 mg NOW STAT IV 08/08/16 17:16 08/08/16 17:17 DC 08/08/16 17:20 4 MG Ondansetron HCl (Zofran Inj) 4 mg NOW STAT IV 08/08/16 17:16 08/08/16 17:17 DC 08/08/16 17:20 4 MG Hydromorphone HCl (Dilaudid Inj) 0.5 mg NOW STAT IV 08/08/16 18:48 08/08/16 18:49 DC 08/08/16 19:00 0.5 MG Hydromorphone HCl (Dilaudid Inj) 0.5 mg NOW STAT IV 08/08/16 19:59 08/08/16 20:00 DC 08/08/16 20:04 0.5 MG ED Course Patient history and physical exam were performed. Nurse's notes were reviewed. Vital signs were reviewed and were normal. The patient does not appear in any acute distress, and refused any analgesics or antiemetics after initial exam. IV access was established, and labs were drawn. Review of labs shows a moderate leukocytosis with left shift and bandemia. Remaining labs are otherwise grossly normal, including a bedside troponin. ECG was also normal. Because of the patient's discomfort and leukocytosis, I did suggest performing a CT of the abdomen. The patient was in agreement. The patient was then administered morphine 4 mg and Zofran 4 mg IVP for pain and nausea. The patient otherwise tolerated his oral contrast well. He did complain of worsening abdominal pain after completing his contrast, and was therefore administered Dilaudid 0.[address] of the abdomen and pelvis confirms an acute appendicitis. After returning from CT, the patient was administered an additional Dilaudid 0.5 mg IVP for increasing pain. This further discussed with Dr. Qiu, ED attending physician, and Dr. Roberts, general surgeon on-call. Please see Dr. Roberts's dictation for further surgical treatment and final disposition. Medical Decision Patient presents to the emergency department with complaint of mid abdominal pain and right upper quadrant pain. The patient is afebrile but does have a moderate leukocytosis. CT scan is consistent with acute appendicitis. No acute diverticulitis, bowel obstruction, perforation or free air noted on CT. Additional labs do not suggest pancreatitis, cholecystitis, UTI or hepatitis. Impression Primary Impression: Appendicitis Departure Information Referrals Harsh Aguilar M.D. (PCP) Patient Instructions My [facility] Problem Qualifiers Primary Impression: Appendicitis Appendicitis type: acute appendicitis Acute appendicitis type: with localized peritonitis Qualified Codes: K35.3 - Acute appendicitis with localized peritonitis
--- NOTE | 2016-08-08 20:06 | DIAGNOSTIC IMAGING REPORT ---
CT OF THE ABDOMEN AND PELVIS WITH CONTRAST CLINICAL HISTORY: Abdominal pain. Leukocytosis. COMPARISON STUDY: CT of the abdomen and pelvis October 17, 2010. TECHNIQUE: Following IV administration of 92 mL of Optiray-320, axial images of the abdomen and pelvis were obtained from the lung bases to the proximal femurs. Images were reviewed in the axial, sagittal, and coronal planes. IV contrast was administered without complication. Oral contrast was administered. CT DOSE: 439.69 mGy.cm FINDINGS: Liver, spleen, adrenal glands, kidneys and pancreas are normal. There is no evidence for a bowel obstruction. The appendix is dilated, measuring 1 cm in caliber. The appendix is fluid-filled. There is mild periappendiceal infiltration. There is no free air or abscess. There is grade I anterolisthesis of L5 on S1 due to bilateral L5 pars defects. IMPRESSION: Acute appendicitis. No free air or abscess. Electronically signed by: Nir Lei M.D. 08/08/2016 8:04 PM Dictated Date/Time: 08/08/2016 8:01 PM
[2016-08-08] MEDS ORDERED: BUPIVACAINE 0.5 % 5 MG/1 ML MPF 30ML VIAL ONE (20:35)
[2016-08-08] MEDS ORDERED: METRONIDAZOLE 500MG / 100ML NSS IV STA (20:56)
[2016-08-08] MEDS ORDERED: CIPROFLOXACIN 400MG / 200ML D5W IV STA (20:56)
--- NOTE | 2016-08-08 20:56 | History and Physical ---
History & Physical Date & Time of Service: Aug 08, 2016 at 20:51 Chief Complaint: Abd. Pain Primary Care Physician: Harsh Aguilar M.D. History of Present Illness Source: patient 21 yr old man who presents to ER complaining of 1 day of worsening RLQ abdominal pain. 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 15/ 10 in intensity, no radiation, worse with movement. Canon "ill" but no fevers/ chills. No nausea or vomiting but also not hungry. Last meal was 9 am. Pain was sharp, intense, no relieving factors, no similar episodes in past. Presented to ER for evaluation. Past Medical/Surgical History Medical Problems: (1) History of reconstruction of anterior cruciate ligament tear Status: Resolved Family History Diabetes mellitus Heart disease Hypertension Social History Smoking Status: Current Every Day Smoker Drug Use: none Marital Status: single Occupational Status: employed, student Immunizations History of Influenza Vaccine: Yes History of Tetanus Vaccine?: Yes History of Pneumococcal: No History of Hepatitis B Vaccine: Yes Multi-Drug Resistant Organisms History of MDRO: No Allergies Coded Allergies: Ampicillin (Verified Allergy, Intermediate, HIVES, 06/02/16) Cefuroxime (Verified Allergy, Mild, HIVES, 06/02/16) Cephalosporins (Verified Allergy, Unknown, 06/02/16) Clindamycin (Verified Allergy, Unknown, 06/02/16) Penicillins (Verified Allergy, Unknown, 06/02/16) Home Medications Scheduled Fluoxetine HCl (Fluoxetine HCl), 20 MG PO DAILY Scheduled PRN Lorazepam (Lorazepam), 0.5 MG PO DAILY PRN for Anxiety Review of Systems Constitutional: No chills, No fever Eyes: No problem reported ENT: No problem reported Respiratory: No problem reported Cardiovascular: No problem reported Abdomen: + pain, No nausea, No vomiting Musculoskeletal: No problem reported Genitourinary - Male: No problem reported Neurologic: No problem reported Psychiatric: No problem reported Endocrine: No problem reported Hematologic / Lymphatic: No problem reported Integumentary: No problem reported Allergic / Immunologic: No problem reported Physical Exam Vital Signs Date Time Temp Pulse Resp B/P Pulse Ox O2 Delivery O2 Flow Rate FiO2 08/08/16 20:48 66 08/08/16 19:21 89 20 133/80 95 Room Air 08/08/16 17:23 79 18 149/88 99 Room Air 08/08/16 16:44 62 08/08/16 16:30 97 Room Air 08/08/16 14:53 37.2 90 16 146/88 99 Room Air General Appearance: WD/WN, no apparent distress Head: normocephalic, atraumatic Eyes: normal inspection ENT: hearing grossly normal Neck: supple, no JVD Respiratory/Chest: lungs clear, normal breath sounds, no respiratory distress Cardiovascular: regular rate, rhythm, no edema, no murmur Abdomen/GI: normal bowel sounds, soft, no organomegaly, + tenderness (over McBurney's point with guarding) Back: normal inspection, no CVA tenderness Extremities/Musculoskelatal: normal inspection, no pedal edema Neurologic/Psych: alert, normal mood/affect Diagnostics Laboratory Results Results Past 24 Hours Test 08/08/16 15:25 Range/Units White Blood Count 16.44 4.8-10.8 K/uL Red Blood Count 5.13 4.7-6.1 M/uL Hemoglobin 16.2 14.0-18.0 g/dL Hematocrit 44.6 42-52 % Mean Corpuscular Volume 86.9 80-100 fL Mean Corpuscular Hemoglobin 31.6 25-34 pg Mean Corpuscular Hemoglobin Concent 36.3 32-36 g/dl Platelet Count 205 130-400 K/uL Mean Platelet Volume 10.1 7.4-10.4 fL Neutrophils (%) (Auto) 73.6 % Lymphocytes (%) (Auto) 14.2 % Monocytes (%) (Auto) 7.4 % Eosinophils (%) (Auto) 4.4 % Basophils (%) (Auto) 0.2 % Neutrophils # (Auto) 12.08 1.4-6.5 K/uL Lymphocytes # (Auto) 2.34 1.2-3.4 K/uL Monocytes # (Auto) 1.21 0.11-0.59 K/uL Eosinophils # (Auto) 0.73 0-0.5 K/uL Basophils # (Auto) 0.04 0-0.2 K/uL RDW Standard Deviation 42.5 36.4-46.3 fL RDW Coefficient of Variation 13.3 11.5-14.5 % Immature Granulocyte % (Auto) 0.2 % Immature Granulocyte # (Auto) 0.04 0.00-0.02 K/uL Urine Color YELLOW Urine Appearance TURBID CLEAR Urine pH 7.5 4.5-7.5 Urine Specific [place] 1.012 1.000-1.030 Urine Protein NEG NEG Urine Glucose (UA) NEG NEG Urine Ketones NEG NEG Urine Occult Blood NEG NEG Urine Nitrite NEG NEG Urine Bilirubin NEG NEG Urine Urobilinogen NEG NEG Urine Leukocyte Esterase NEG NEG Urine WBC (Auto) 0 0-5 /hpf Urine RBC (Auto) 0-4 0-4 /hpf Urine Hyaline Casts (Auto) 1-5 0-5 /lpf Urine Epithelial Cells (Auto) 0-5 0-5 /lpf Urine Bacteria (Auto) NEG NEG Sodium Level 142 136-145 mmol/L Potassium Level 3.6 3.5-5.1 mmol/L Chloride Level 106 98-107 mmol/L Carbon Dioxide Level 30 21-32 mmol/L Anion Gap 6.0 3-11 mmol/L Blood Urea Nitrogen 11 7-18 mg/dl Creatinine 0.81 0.60-1.40 mg/dl Est Creatinine Clear Calc Drug Dose 164.5 ml/min Estimated GFR () 147.2 Estimated GFR (Non- 127.0 BUN/Creatinine Ratio 13.1 10-20 Random Glucose 95 70-99 mg/dl Calcium Level 9.6 8.5-10.1 mg/dl Total Bilirubin 0.4 0.2-1 mg/dl Direct Bilirubin < 0.1 0-0.2 mg/dl Aspartate Amino Transf (AST/SGOT) 15 15-37 U/L Alanine Aminotransferase (ALT/SGPT) 35 12-78 U/L Alkaline Phosphatase 88 45-117 U/L Total Creatine Kinase 83 39-308 U/L Troponin I < 0.015 0-0.045 ng/ml Total Protein 7.8 6.4-8.2 gm/dl Albumin 4.6 3.4-5.0 gm/dl Lipase 87 73-393 U/L Diagnostic Radiology CT scan abd/ pelvis: FINDINGS: Liver, spleen, adrenal glands, kidneys and pancreas are normal. There is no evidence for a bowel obstruction. The appendix is dilated, measuring 1 cm in caliber. The appendix is fluid-filled. There is mild periappendiceal infiltration. There is no free air or abscess. There is grade I anterolisthesis of L5 on S1 due to bilateral L5 pars defects. IMPRESSION: Acute appendicitis. No free air or abscess. Impression Assessment and Plan 21 yr old man with acute appendicitis. Consent signed for laparoscopic appendectomy. Risks of bleeding, infection, conversion to open, postop ileus, postop abscess all reviewed. Will go to OR tonight.
[2016-08-08] MEDS ORDERED: HYDROmorphone INJ 0.5 MG/0.5 ML SYR IV PRN (21:00)
[2016-08-08] MEDS ORDERED: EpHEDrine SULFATE INJ 50 MG/ML AMP IV PRN (21:15)
[2016-08-08] MEDS ORDERED: FENTANYL CITRATE INJ 50 MCG/1 ML 2 ML VIAL IV PRN (21:15)
[2016-08-08] MEDS ORDERED: CIPROFLOXACIN 400MG / D5W IV ONE (21:15)
[2016-08-08] MEDS ORDERED: ONDANSETRON INJ 2 MG/ML 2 ML VIAL IV PRN (21:15)
[2016-08-08] MEDS ORDERED: PROMETHAZINE HCL INJ 6.25 MG in SODIUM CHLORIDE 0.9% 50ML 50 ML IV PRN (21:15)
[2016-08-08] MEDS ORDERED: ATROPINE SULFATE 0.1 MG/ML 5ML SYR IV PRN (21:15)
[2016-08-08] MEDS ORDERED: HYDROmorphone INJ 1 MG/ML SYR IV PRN (21:15)
[2016-08-08] MEDS ORDERED: METRONIDAZOLE 500MG / NSS IV ONE (21:15)
[2016-08-08] MEDS ORDERED: FENTANYL CITRATE INJ 50 MCG/1 ML 2 ML VIAL ONE ×2 (21:17→21:18)
[2016-08-08] MEDS ORDERED: DEXAMETHASONE SOD INJ 4 MG/ML VIAL ONE (21:28)
[2016-08-08] MEDS ORDERED: LIDOCAINE HCL 2% 2 ML VIAL (20MG/ML) ONE (21:28)
[2016-08-08] MEDS ORDERED: PROPOFOL IV EMULSION 10 MG/ML 20 ML VIAL IV ONE (21:28)
[2016-08-08] MEDS ORDERED: KETOROLAC TROMETHAMINE 30 MG/ML VIAL ONE (21:28)
[2016-08-08] MEDS ORDERED: SUCCINYLCHOLINE CHLORIDE 20 MG/ML 10 ML VIAL IV ONE (21:28)
[2016-08-08] MEDS ORDERED: ROCURONIUM BROMID 50MG/5ML SYR ONE (21:28)
[2016-08-08] MEDS ORDERED: MoRPHine SULFATE PF 1 MG/ML 10 ML AMP/VIAL ONE (21:29)
[2016-08-08] MEDS ORDERED: GLYCOPYRROLATE INJ 0.2 MG/ML VIAL ONE (21:51)
[2016-08-08] MEDS ORDERED: NEOSTIGMINE METHYLSULFATE 5 MG/5 ML SYR ONE (21:51)
--- NOTE | 2016-08-08 22:14 | [facility] Post Operative Brief Note ---
Immediate Operative Summary Operative Date Aug 08, 2016. Pre-Operative Diagnosis Acute Appendicitis Post-Operative Diagnosis Acute Appendicitis Procedure(s) Performed Laparoscopic Appendectomy Surgeon Dr. María Elena Roberts Vice President Medical Affairs Surgeon(s) none Estimated Blood Loss 5ML Findings non perforated acute appendicitis Specimens A. Appendix Drains none Anesthesia GET Complication(s) None Disposition Recovery Room / PACU
[2016-08-08] MEDS ORDERED: ONDANSETRON INJ 2 MG/ML 2 ML VIAL ONE (22:15)
--- NOTE | 2016-08-08 22:16 | Discharge Instructions ---
Discharge Instructions Date of Service Aug 08, 2016. Admission Reason for Admission: Abd. Pain Discharge Discharge Diagnosis / Problem: acute appendicitis Discharge Goals Goal(s): Decrease discomfort Activity Recommendations Activity Limitations: resume your previous activity (walking/ stairs OK today) Lifting Limitations: no more than 10 pounds (for 2 wks) Exercise/Sports Limitations: gradually increase as tolerated (limit for 2 wks) May Resume Sexual Activity: after two weeks Shower/Bathe: tomorrow (remove outer gauze bandages prior to shower, leave steristrips in place) Driving or Machine Use: resume 3 days after discharge (if off narcotics) . Current Hospital Diet Patient's current hospital diet: Regular Discharge Diet Recommended Diet: Regular Diet Procedures Procedures Performed: Laparoscopic Appendectomy Pending Studies Studies pending at discharge: no Work Instructions Return To Work: after follow-up (2 wks) Lifting Limitations: no more than 10 pounds (2 wks) Medical Emergencies . Who to Call and When: Medical Emergencies: If at any time you feel your situation is an emergency, please call 911 immediately. . Non-Emergent Contact Non-Emergency issues call your: Surgeon Contact Number: [phone]. Call to make appt for 2 wk postop check Call Non-Emergent contact if: temperature is above 101.5, your pain is worsening, wound has increased drainage, wound has increased redness, wound has increased pain Past History Medical & Surgical History: (1) Appendicitis . "Provider Documentation" section prepared by María Elena Roberts. VTE Core Measure Inpt VTE Proph given/why not?: Treatment not indicated [place] Drug Monitoring Program Search Results: no issues identified
[2016-08-08] MEDS ORDERED: OXYC-57 PO (22:17)
--- NOTE | 2016-08-08 22:27 | Anesthesiology Progress Note ---
Anesthesia Post Op Note Date & Time Aug 08, 2016 at 22:27 Vital Signs Pain Intensity: 0 Vital Signs Past 12 Hours Date Time Temp Pulse Resp B/P Pulse Ox O2 Delivery O2 Flow Rate FiO2 08/08/16 22:20 52 16 123/68 98 Mask 10 08/08/16 22:12 36.4 58 16 110/59 98 Mask 10 08/08/16 20:48 66 08/08/16 19:21 89 20 133/80 95 Room Air 08/08/16 17:23 79 18 149/88 99 Room Air 08/08/16 16:44 62 08/08/16 16:30 97 Room Air 08/08/16 14:53 37.2 90 16 146/88 99 Room Air Notes Mental Status: alert / awake / arousable, participated in evaluation Pt Amnestic to Procedure: Yes Nausea / Vomiting: adequately controlled Pain: adequately controlled Airway Patency, RR, SpO2: stable & adequate BP & HR: stable & adequate Hydration State: stable & adequate Anesthetic Complications: no major complications apparent
[2016-08-08] MEDS ORDERED: OXYCODONE/ACETAMINOPHEN 5-325 TAB PO PRN (22:30)
[2016-08-08] MEDS ORDERED: IV FLUIDS COMPLETED PRN (22:30)
[2016-08-08] MEDS ORDERED: ACETAMINOPHEN 325 MG TAB PO PRN (22:30)
[2016-08-08] MEDS ORDERED: MoRPHine SULFATE 2 MG/ML CARP IV PRN (22:30)
--- NOTE | 2016-08-08 22:36 | OPERATIVE REPORT ---
DATE OF OPERATION: 08/08/2016 PREOPERATIVE DIAGNOSIS: Acute appendicitis. POSTOPERATIVE DIAGNOSIS: Same. OPERATIVE PROCEDURE: Laparoscopic appendectomy. SURGEON: Dr. María Elena Roberts. IRRIGATION MANAGER: None. ESTIMATED BLOOD LOSS: 5 mL ANESTHESIA: General endotracheal anesthesia. COMPLICATIONS: None. SPECIMENS: Appendix. OPERATIVE FINDINGS: Acute appendicitis, not gangrenous, no perforation. Single adhesion of omentum to left lower quadrant abdominal wall, which was taken down. INDICATIONS: Mr. Rodriguez is a 21-year-old gentleman who presented with acute appendicitis. He was consented regarding laparoscopic appendectomy. OPERATIVE PROCEDURE: The patient received ciprofloxacin and Flagyl preoperatively. After the induction of general endotracheal anesthesia, his abdomen was sterilely prepped and draped. He was positioned in Trendelenburg. A supraumbilical incision was made and a Veress needle was placed on the first pass into the peritoneal cavity. This was tested with the saline drop test. Initial pressure was 2 mmHg and this was taken up to 15 mmHg, a 5 mm trocar was placed. An additional 5 mm was placed in the left lower quadrant, the umbilical trocar was changed to a 12 mm, and the second 5 mm placed in the midline pubic area. The appendix was easily visualized in the right lower quadrant. This was inflamed with suppurative changes. The appendix was grasped at its base on the cecum. A window was created at the base of the appendix on the cecum and the appendix was divided off the cecum with a firing of the [id number] 45 purple load stapler. The appendiceal mesentery was taken with a second firing of the bolaños load stapler. The appendix was placed in an Endobag and removed through the umbilical incision. The single adhesion to the left lower quadrant was cut. The remainder of the abdomen was within normal limits. The abdomen was irrigated and suctioned. There was no evidence of bleeding noted at the staple lines. The trocars were removed and pneumoperitoneum released. The fascia of the umbilical incision was closed with 0 Vicryl stitches placed anteriorly. The skin of all 3 incisions was closed with running subcuticular 4-0 Vicryl sutures. Steri-Strip and sterile dressings were applied. 30 mL of 0.5% Marcaine had been used for local anesthesia throughout the procedure. He was awakened and taken to recovery in stable condition. I attest to the content of the Intraoperative Record and any orders documented therein. Any exceptio ns are noted below.
[2016-08-08 23:00] VITALS: BP 124/76; PULSE 62; TEMP 36.9; O2SAT 96
[2016-08-08 23:30] VITALS: BP 123/76; PULSE 59; TEMP 36.6; O2SAT 97
[2016-08-09] VITALS (11 sets, daily range): BP systolic 104–137; BP diastolic 52–75; PULSE 54–76; TEMP 36.4–36.9; O2SAT 96–98; Ht 177.8 cm; Wt 90.9 kg
[2016-08-09] MEDS: D5W AND 1/2NSS + 20MEQ KCL 1,000 ML IV SCH ×3 (00:46→15:49)
[2016-08-09] MEDS: KETOROLAC TROMETHAMINE 15 MG/ML VIAL IV PRN ×4 (02:57→22:01)
[2016-08-09] MEDS: OXYCODONE/ACETAMINOPHEN 5-325 TAB PO PRN ×4 (05:22→19:34)
[2016-08-09] MEDS: MoRPHine SULFATE 2 MG/ML CARP IV PRN ×2 (07:26→16:47)
[2016-08-09] MEDS: FLUOXETINE HCL 20 MG CAP PO SCH (07:39)
[2016-08-09] MEDS ORDERED: LEVOFLOXACIN / D5W 500 MG in PREMIXED IN D5W 100 ML IV SCH (09:00)
[2016-08-09] MEDS: MoRPHine SULFATE 4 MG/ML 1 ML CARP\\VIAL IV PRN ×7 (09:40→23:20)
--- NOTE | 2016-08-09 11:16 | Surgery Progress Note ---
Surgery Progress Note Date of Service Aug 09, 2016. Subjective Post OP Day: 1 + ambulating, + diet (tolerating clear liquids), No SOB, No bowel movement, No chest pain, No flatus, No nausea, No vomiting Pain not controlled currently 6/10 Feels similar to pain prior to surgery Has the urge to urinate but cant establish stream Objective Vital Signs: Date Time Temp Pulse Resp B/P Pulse Ox O2 Delivery O2 Flow Rate FiO2 08/09/16 07:31 36.6 69 16 104/52 96 Nasal Cannula 1.0 08/09/16 04:05 36.7 69 16 114/65 96 Room Air 08/09/16 02:02 36.8 66 16 133/67 97 Room Air 08/09/16 01:03 36.4 58 16 121/68 97 Room Air 08/09/16 00:39 97 Nasal Cannula 1.0 08/09/16 00:15 36.5 57 16 121/73 97 Nasal Cannula 1.0 08/09/16 00:00 36.5 57 16 121/73 97 Nasal Cannula 1.0 08/08/16 23:30 36.6 59 16 123/76 97 Nasal Cannula 1.0 08/08/16 23:00 36.9 62 16 124/76 96 Nasal Cannula 2.0 08/08/16 22:45 72 18 129/83 99 Nasal Cannula 3 08/08/16 22:40 36.5 59 18 128/80 98 Nasal Cannula 3 08/08/16 22:30 56 18 131/72 98 Nasal Cannula 3 08/08/16 22:20 52 16 123/68 98 Mask 10 08/08/16 22:12 36.4 58 16 110/59 98 Mask 10 08/08/16 20:48 66 08/08/16 19:21 89 20 133/80 95 Room Air 08/08/16 17:23 79 18 149/88 99 Room Air 08/08/16 16:44 62 08/08/16 16:30 97 Room Air 08/08/16 14:53 37.2 90 16 146/88 99 Room Air General Appearance: WD/WN, + mild distress Head: normocephalic, atraumatic Neck: trachea midline Respiratory/Chest: no respiratory distress, no accessory muscle use Abdomen: non distended, soft, no organomegaly, + tenderness (appropriate post op, no peritonitis or rigidity) Incision(s): clean, dry (dressings clean and dry) Extremities: no pedal edema, no calf tenderness Laboratory Results: Results Past 24 Hours Test 08/08/16 15:25 Range/Units White Blood Count 16.44 4.8-10.8 K/uL Red Blood Count 5.13 4.7-6.1 M/uL Hemoglobin 16.2 14.0-18.0 g/dL Hematocrit 44.6 42-52 % Mean Corpuscular Volume 86.9 80-100 fL Mean Corpuscular Hemoglobin 31.6 25-34 pg Mean Corpuscular Hemoglobin Concent 36.3 32-36 g/dl Platelet Count 205 130-400 K/uL Mean Platelet Volume 10.1 7.4-10.4 fL Neutrophils (%) (Auto) 73.6 % Lymphocytes (%) (Auto) 14.2 % Monocytes (%) (Auto) 7.4 % Eosinophils (%) (Auto) 4.4 % Basophils (%) (Auto) 0.2 % Neutrophils # (Auto) 12.08 1.4-6.5 K/uL Lymphocytes # (Auto) 2.34 1.2-3.4 K/uL Monocytes # (Auto) 1.21 0.11-0.59 K/uL Eosinophils # (Auto) 0.73 0-0.5 K/uL Basophils # (Auto) 0.04 0-0.2 K/uL RDW Standard Deviation 42.5 36.4-46.3 fL RDW Coefficient of Variation 13.3 11.5-14.5 % Immature Granulocyte % (Auto) 0.2 % Immature Granulocyte # (Auto) 0.04 0.00-0.02 K/uL Urine Color YELLOW Urine Appearance TURBID CLEAR Urine pH 7.5 4.5-7.5 Urine Specific Branch 1.012 1.000-1.030 Urine Protein NEG NEG Urine Glucose (UA) NEG NEG Urine Ketones NEG NEG Urine Occult Blood NEG NEG Urine Nitrite NEG NEG Urine Bilirubin NEG NEG Urine Urobilinogen NEG NEG Urine Leukocyte Esterase NEG NEG Urine WBC (Auto) 0 0-5 /hpf Urine RBC (Auto) 0-4 0-4 /hpf Urine Hyaline Casts (Auto) 1-5 0-5 /lpf Urine Epithelial Cells (Auto) 0-5 0-5 /lpf Urine Bacteria (Auto) NEG NEG Sodium Level 142 136-145 mmol/L Potassium Level 3.6 3.5-5.1 mmol/L Chloride Level 106 98-107 mmol/L Carbon Dioxide Level 30 21-32 mmol/L Anion Gap 6.0 3-11 mmol/L Blood Urea Nitrogen 11 7-18 mg/dl Creatinine 0.81 0.60-1.40 mg/dl Est Creatinine Clear Calc Drug Dose 164.5 ml/min Estimated GFR () 147.2 Estimated GFR (Non- 127.0 BUN/Creatinine Ratio 13.1 10-20 Random Glucose 95 70-99 mg/dl Calcium Level 9.6 8.5-10.1 mg/dl Total Bilirubin 0.4 0.2-1 mg/dl Direct Bilirubin < 0.1 0-0.2 mg/dl Aspartate Amino Transf (AST/SGOT) 15 15-37 U/L Alanine Aminotransferase (ALT/SGPT) 35 12-78 U/L Alkaline Phosphatase 88 45-117 U/L Total Creatine Kinase 83 39-308 U/L Troponin I < 0.015 0-0.045 ng/ml Total Protein 7.8 6.4-8.2 gm/dl Albumin 4.6 3.4-5.0 gm/dl Lipase 87 73-393 U/L Assessment & Plan POD # 1 s/p laparoscopic appendectomy - vital signs stable - Pain moderate uncontrolled per patient - no nausea or vomiting - tolerating clears Plan: Continue IV fluids and IV antibiotics Continue clear liquids Advised patient to ask nurse for pain medication if needed to keep pain controlled, Morphine ordered every hour as needed. May need IV pain medications instead of Percocet until controlled. scan bladder if unable to void this am straight cath if unable to void Encourage ambulation Pt seen and examined. passing flatus and tolerating diet. Main issue is inability to void - gandhi being placed now. pain should hopefully improve with bladder decompression. continue current pain meds (morphine/ toradol). Keep in hospital for pain control. Re-evaluated patient at 1:30 pm Bladder scan at 10 am showed 500mls, straight cath for 900mls Bladder scan at 1:30 pm showed 900 mls, patient unable to void again 4 mg of IV Morphine with Toradol given at 9 am 4 mg of IV Morphine given at 1 pm Pain not controlled Plan: Gandhi catheter placement, will keep for 12 hours and remove in the morning Continue IV and oral pain management as needed Encourage ambulation Dr. Roberts has seen and examined patient, agrees with assessment and plan.
[2016-08-09] MEDS: ONDANSETRON INJ 2 MG/ML 2 ML VIAL IV PRN (20:25)
[2016-08-10] MEDS: LORAZEPAM 0.5 MG TAB PO PRN ×4 (00:09→21:44)
[2016-08-10] MEDS: D5W AND 1/2NSS + 20MEQ KCL 1,000 ML IV SCH ×3 (01:22→23:42)
[2016-08-10] MEDS: OXYCODONE/ACETAMINOPHEN 5-325 TAB PO PRN ×4 (01:25→16:47)
[2016-08-10] MEDS: MoRPHine SULFATE 4 MG/ML 1 ML CARP\\VIAL IV PRN ×3 (03:38→19:19)
[2016-08-10] MEDS: ONDANSETRON INJ 2 MG/ML 2 ML VIAL IV PRN (05:30)
[2016-08-10 06:54] VITALS: BP 119/74; PULSE 52; TEMP 36.7; O2SAT 93
[2016-08-10 07:27] LABS: HEMATOCRIT 36.4 % (42-52); MEAN CELL VOLUME 90.5 fL (80-100); MEAN CORPUSCULAR HEMOGLOBIN 31.1 pg (25-34); MEAN CORPUSCULAR HGB CONC 34.3 g/dl (32-36); MEAN PLATELET VOLUME 10.6 fL (7.4-10.4); PLATELET COUNT 177 K/uL (130-400); RED BLOOD COUNT 4.02 M/uL (4.7-6.1); WHITE BLOOD COUNT 9.34 K/uL (4.8-10.8)
[2016-08-10] MEDS: FLUOXETINE HCL 20 MG CAP PO SCH (08:01)
[2016-08-10] MEDS: KETOROLAC TROMETHAMINE 15 MG/ML VIAL IV PRN ×2 (09:47→19:19)
--- NOTE | 2016-08-10 10:31 | Surgery Progress Note ---
Surgery Progress Note Date of Service Aug 10, 2016. Subjective Post OP Day: 2 + diet (tolerated regular diet this am), + flatus, No SOB, No bowel movement, No chest pain, No nausea, No vomiting Has not urinated since Gandhi removed this am Objective Vital Signs: Date Time Temp Pulse Resp B/P Pulse Ox O2 Delivery O2 Flow Rate FiO2 08/10/16 07:55 Room Air 08/10/16 06:54 36.7 52 17 119/74 93 Room Air 08/09/16 23:30 Room Air 08/09/16 23:08 36.9 62 16 137/69 96 Room Air 08/09/16 19:00 36.9 76 16 127/69 96 Room Air 08/09/16 16:30 98 Room Air 08/09/16 15:24 36.9 54 16 129/75 98 Room Air General Appearance: WD/WN, no apparent distress Head: normocephalic, atraumatic Neck: trachea midline Respiratory/Chest: no respiratory distress, no accessory muscle use Abdomen: non distended, soft, + tenderness (appropriate post op) Incision(s): clean, dry (dressings clean and dry) Laboratory Results: Results Past 24 Hours Test 08/10/16 05:10 Range/Units White Blood Count 9.34 4.8-10.8 K/uL Red Blood Count 4.02 4.7-6.1 M/uL Hemoglobin 12.5 14.0-18.0 g/dL Hematocrit 36.4 42-52 % Mean Corpuscular Volume 90.5 80-100 fL Mean Corpuscular Hemoglobin 31.1 25-34 pg Mean Corpuscular Hemoglobin Concent 34.3 32-36 g/dl RDW Standard Deviation 45.9 36.4-46.3 fL RDW Coefficient of Variation 13.7 11.5-14.5 % Platelet Count 177 130-400 K/uL Mean Platelet Volume 10.6 7.4-10.4 fL Assessment & Plan POD # 2 s/p laparoscopic appendectomy - vital signs stable - Pain moderate, slightly better still taking IV morphine - no nausea or vomiting - tolerating regular diet - urinary Retention s/p gandhi placement yesterday, removed this am. Has not voided yet since Gandhi removed. Plan: Continue IV fluids and IV antibiotics Continue regular diet Will wait to see if patient voids on his own , may need to be discharged with Gandhi Catheter Will check back in later this afternoon possible discharge this afternoon/evening Dr. Gates has seen and examined patient, agrees with assessment and plan.
[2016-08-10] MEDS ORDERED: DOCUSATE SODIUM 100 MG CAP PO ONE (10:45)
[2016-08-10] MEDS: MoRPHine SULFATE 2 MG/ML CARP IV PRN ×3 (14:15→21:44)
[2016-08-10] MEDS ORDERED: NURSING VERBAL MED ORDER ONE (14:15)
[2016-08-10 15:17] VITALS: BP 134/79; PULSE 57; TEMP 37; O2SAT 97
[2016-08-10 16:30] VITALS: O2SAT 97
[2016-08-10 23:05] VITALS: BP 120/67; PULSE 48; TEMP 36.8; O2SAT 95
[2016-08-11] MEDS: OXYCODONE/ACETAMINOPHEN 5-325 TAB PO PRN ×2 (04:55→08:59)
[2016-08-11] MEDS: MoRPHine SULFATE 2 MG/ML CARP IV PRN (05:58)
[2016-08-11] MEDS: LORAZEPAM 0.5 MG TAB PO PRN (05:58)
[2016-08-11 07:15] VITALS: BP 113/71; PULSE 45; TEMP 36.7; O2SAT 95
--- NOTE | 2016-08-11 08:56 | SURGERY PROGRESS NOTE ---
DATE: 08/11/2016 DATE: 08/11/2016. Seen for Dr. Gates, seen for Dr. Roberts. SUMMARY: Simon is 3rd postoperative day status post laparoscopic appendectomy. The path report confirmed acute appendicitis. His main problem has been urinary retention and discussed with Dr. Gates yesterday the patient could go home today with the [facility] and to follow up in the office on Saturday or Saturday. The patient this morning is sleeping. As I turned on the light and awaken him he was in no acute distress. Abdomen is completely benign. Last vitals showed a temperature of 36.7, pulse 45, respirations 17, blood pressure 113/71, O2 sats 95 on room air. The abdomen is completely benign. At this point, from my point of view, we will give discharge order. The instructions have been written by Dr. Gates.
[2016-08-11] MEDS: FLUOXETINE HCL 20 MG CAP PO SCH (08:58)
[2016-08-11 10:37] VITALS: BP 113/71; PULSE 45; TEMP 36.7; O2SAT 95
[2016-08-11] MEDS: D5W AND 1/2NSS + 20MEQ KCL 1,000 ML IV SCH (11:42)
[2016-08-14] MEDS ORDERED: FLUO20CA36 PO (15:31)
[2016-08-14] MEDS ORDERED: ATV5X PO (15:31)
[2016-08-19] MEDS ORDERED: RXC5 PO (18:13)
[2016-08-19] MEDS ORDERED: FLUO20CA36 PO (18:13)
[2016-08-19] MEDS ORDERED: PRT40 PO (18:13)
[2016-08-19] MEDS ORDERED: NRN300 PO (18:13)
--- NOTE | 2016-08-31 13:48 | Discharge Summary ---
Discharge Summary Date of Service Aug 31, 2016. Admission Date/Reason Aug 08, 2016 at 22:21 Appendicitis. Discharge Date/Disposition Aug 11, 2016 Home Diagnosis Principal Diagnosis: acute appendicitis Procedure(s) Performed laparoscopic appendectomy Consultations urology Medication Reconciliation Continued Medications: Lorazepam (Lorazepam) 0.5 Mg Tab 0.5 MG PO DAILY PRN for Anxiety Admission Physical Exam As per Admitting History & Physical. Hospital Course Pt underwent laparoscopic appendectomy complicated by urinary retention. Had a catheter placed and seen by urology. Ultimately discharged home with a leg bag in place. Diet was advanced prior to discharge. Discharge Instructions Please refer to the electronic Patient Visit Report (Discharge Instructions) for additional information.
== END 2016-08-11 13:01 | disposition home or self-care (01) ==
LOC: ENRESERVTM → ENRESERVDT → C.EDB 14:28 → C.MSN 22:21
PROVIDERS: ADMIT Surgery; ATTEND Surgery
DX: K37 Unspecified appendicitis (principal); R33.9 Retention of urine, unspecified; F17.200 Nicotine dependence, unspecified, uncomplicated; Z83.3 Family history of diabetes mellitus; Z82.49 Family history of ischemic heart disease and other diseases of the circulatory system

== ENCOUNTER 2016-08-13 17:06 | Emergency (ER) | payer BC ==
[~2016-08-13] VITALS: Ht 177.8 cm; Wt 92.4 kg
[~2016-08-13 17:06] MED LIST changes: -ESCI10TA17 PO; -LORA-741 PO; -NPR500 PO; -OMEP20CA9 PO; -ONDA4TAB46 PO; +OXYC-57 PO; -SUMA50TA15 PO
[2016-08-13 17:09] VITALS: Ht 177.8 cm; Wt 92.4 kg
[2016-08-13] MEDS ORDERED: ONDANSETRON INJ 2 MG/ML 2 ML VIAL IV STA (19:43)
[2016-08-13] MEDS ORDERED: SODIUM CHLORIDE 0.9% 1000ML 1,000 ML IV STA (19:43)
[2016-08-13 19:47] LABS: BASO % 0.4 %; BASO ABS # 0.05 K/uL (0-0.2); COMPLETE YES; HEMATOCRIT 42.9 % (42-52); IG% 0.2 %; LYMPH % 13.6 %; LYMPH ABS # 1.92 K/uL (1.2-3.4); MEAN CELL VOLUME 89.4 fL (80-100); MEAN CORPUSCULAR HEMOGLOBIN 32.1 pg (25-34); MEAN CORPUSCULAR HGB CONC 35.9 g/dl (32-36); MONO % 6.1 %; NEUT % 73.7 %; PLATELET COUNT 219 K/uL (130-400); WHITE BLOOD COUNT 14.16 K/uL (4.8-10.8)
[2016-08-13] MEDS: HYDROmorphone INJ 1 MG/ML SYR IV PRN ×2 (19:55→22:34)
[2016-08-13 19:59] LABS: INR 1.1 (0.9-1.1); PARTIAL THROMBOPLASTIN RATIO 1.1; PROTHROMBIN TIME (PATIENT) 11.3 SECONDS (9.0-12.0)
[2016-08-13 20:02] LABS: URINE APPEARANCE CLEAR (CLEAR); URINE BILIRUBIN NEG (NEG); URINE COLOR YELLOW; URINE NITRITE NEG (NEG); URINE PH 7.5 (4.5-7.5); URINE SPECIFIC GRAVITY 1.024 (1.000-1.030); UROBILINOGEN NEG (NEG); ZZUR CULT IF INDIC CLEAN CATCH NO
[2016-08-13 20:06] LABS: BUN/CREATININE RATIO 12.8 (10-20); CALCIUM 8.9 mg/dl (8.5-10.1); CREATININE 0.89 mg/dl (0.60-1.40); POTASSIUM 3.7 mmol/L (3.5-5.1)
[2016-08-13 20:06] LABS: MANUAL MICROSCOPIC REQUIRED? NO; REVIEW REQ? NO
[2016-08-13] MEDS ORDERED: LORAZEPAM 0.5 MG TAB PO STA (20:28)
--- NOTE | 2016-08-13 21:21 | DIAGNOSTIC IMAGING REPORT ---
CT ABD/PELVIS IV CONTRAST ONLY CLINICAL HISTORY: Hematuria. Trauma. History of recent appendectomy. COMPARISON STUDY: 08/08/2016 TECHNIQUE: Following the IV administration of 115 mL of Optiray-320, CT scan of the abdomen and pelvis was performed from the lung bases to the proximal femurs. Images are reviewed in the axial, sagittal, and coronal planes. IV contrast was administered without complication. CT DOSE: 468.78 mGy.cm FINDINGS: Lower chest: The heart is normal in size and configuration, without pericardial effusion. The lung bases and pleural spaces are clear. Liver: The contrast-enhanced liver is normal in size, contour, and attenuation. There is no intrahepatic biliary ductal dilatation. The hepatic veins and portal veins are patent. Gallbladder: Unremarkable. Spleen: Borderline enlarged measuring 12.3 cm Pancreas: Unremarkable. Adrenal glands: Unremarkable. Kidneys: There is symmetric renal cortical enhancement. The kidneys are normal in size without hydronephrosis. Bowel: There are no transition zones indicate bowel obstruction. There are postsurgical changes of a recent appendectomy. Peritoneum: There is no free intraperitoneal air. There are postsurgical changes present within the abdominal wall. There is a small amount of hyperdense fluid within the pelvis, consistent with hemorrhage. There is scattered very hyperdense foci within this fluid. Vasculature: The abdominal aorta is normal in course and caliber. Adenopathy: None. Pelvic viscera: The bladder, and pelvic viscera are unremarkable. Skeletal structures: There is bilateral L5 spondylolysis. There is a grade 1 spondylolisthesis of L5 on S1. IMPRESSION: 1. Interval appendectomy 2. Small amount of hyperdense fluid within the pelvis, consistent with hemorrhage. Within the area of presumed hemorrhage, there are scattered very hyperdense foci. 3. No evidence of renal injury. Electronically signed by: John Le M.D. 08/13/2016 9:20 PM Dictated Date/Time: 08/13/2016 9:10 PM
[2016-08-13 23:42] VITALS: BP 138/64; PULSE 55; TEMP 36.4; O2SAT 96
--- NOTE | 2016-08-14 02:09 | EMERGENCY ROOM VISIT NOTE ---
History Report prepared by Lanie: Tapan Corbin Under the Supervision of: Dr. Trung Grant M.D. First contact with patient: 19:23 Chief Complaint: URINARY SYMPTOMS Stated Complaint: POST SURGICAL PAIN - BLEEDING Nursing Triage Summary: Pt states blood in urine today after waking up. "straight blood". States fall yesterday, injured RLQ, Appy post op, done . History of Present Illness The patient is a 21 year old male who presents to the Emergency Room with complaints of worsening right lower quadrant abdominal pain and bleeding during urination starting this morning. He currently rates his discomfort as a 9/10 in severity. The patient states that he had an appendectomy a few days ago, and he has been feeling okay until yesterday when he went outside and fell in the snow and landed on his right side. He states that afterwards he felt fine. He states that this morning he woke up and he was having a lot of pain in his abdomen, and the incision site was sore. He additionally states that he had a fever and chills. The patient also states that he woke up in the middle of the night and there was a lot of blood in his underwear. Pt denies LOC, headache, diaphoresis , visual changes, neck pain, chest pain, breathing difficulties, nausea, vomiting, back pain, melena, hematochezia, numbness, weakness, lymphadenopathy, rash, or other complaints. Source of History: patient Onset: this morning Position: abdomen (RLQ) Symptom Intensity: 9/10 Timing: worsening Associated Symptoms: + abdominal pain, + chills, + fevers, + urinary symptoms Review of Systems See HPI for pertinent positives and negatives. A total of ten systems were reviewed and were otherwise negative. Past Medical & Surgical Medical Problems: (1) History of reconstruction of anterior cruciate ligament tear (2) Pneumonia Family History Diabetes mellitus Heart disease Hypertension Social History Smoking Status: Current Every Day Smoker Alcohol Use: none Drug Use: none Marital Status: single Housing Status: lives with family Occupation Status: employed, student Current/Historical Medications Scheduled Fluoxetine HCl (Fluoxetine HCl), 20 MG PO DAILY Scheduled PRN Lorazepam (Lorazepam), 0.5 MG PO DAILY PRN for Anxiety Oxycodone/Acetaminophen 5MG/325MG (Percocet 5MG/325MG), 1-2 TABLETS PO Q4H PRN for Pain Allergies Coded Allergies: Ampicillin (Verified Allergy, Intermediate, HIVES, 08/13/16) Cefuroxime (Verified Allergy, Mild, HIVES, 08/13/16) Cephalosporins (Verified Allergy, Unknown, 08/13/16) Clindamycin (Verified Allergy, Unknown, 08/13/16) Penicillins (Verified Allergy, Unknown, 08/13/16) Physical Exam Vital Signs Date Time Temp Pulse Resp B/P Pulse Ox O2 Delivery O2 Flow Rate FiO2 08/13/16 23:42 36.4 55 18 138/64 96 08/13/16 23:38 55 18 138/64 96 Room Air 08/13/16 22:37 69 18 129/59 95 Room Air 08/13/16 21:09 56 16 153/73 99 08/13/16 20:00 36.4 74 16 142/88 98 Room Air 08/13/16 17:09 36.4 74 16 161/78 98 Room Air Physical Exam GENERAL: Awake, alert, well-appearing, in no distress HENT: Normocephalic, atraumatic. Oropharynx unremarkable. EYES: Normal conjunctiva. Sclera non-icteric. NECK: Supple. No nuchal rigidity. FROM. No JVD. RESPIRATORY: Clear to auscultation. CARDIAC: Regular rate, normal rhythm. Extremities warm and well perfused. Pulses equal. ABDOMEN: Right lower quadrant tenderness. Incision is clean, dry, and intact. Soft, non-distended. No rebound or guarding. No masses. RECTAL: Deferred. MUSCULOSKELETAL: Chest examination reveals no tenderness. The back is symmetrical on inspection without obvious abnormality. There is no CVA tenderness to palpation. No joint edema. LOWER EXTREMITIES: Calves are equal size bilaterally and non-tender. No edema. No discoloration. NEURO: Normal sensorium. No sensory or motor deficits noted. SKIN: No rash or jaundice noted. Medical Decision & Procedures ER Provider Diagnostic Interpretation: Radiology results as stated below per my review and radiologist interpretation CT ABD/PELVIS IV CONTRAST ONLY CLINICAL HISTORY: Hematuria. Trauma. History of recent appendectomy. COMPARISON STUDY: 08/08/2016 TECHNIQUE: Following the IV administration of 115 mL of Optiray-320, CT scan of the abdomen and pelvis was performed from the lung bases to the proximal femurs. Images are reviewed in the axial, sagittal, and coronal planes. IV contrast was administered without complication. CT DOSE: 468.78 mGy.cm FINDINGS: Lower chest: The heart is normal in size and configuration, without pericardial effusion. The lung bases and pleural spaces are clear. Liver: The contrast-enhanced liver is normal in size, contour, and attenuation. There is no intrahepatic biliary ductal dilatation. The hepatic veins and portal veins are patent. Gallbladder: Unremarkable. Spleen: Borderline enlarged measuring 12.3 cm Pancreas: Unremarkable. Adrenal glands: Unremarkable. Kidneys: There is symmetric renal cortical enhancement. The kidneys are normal in size without hydronephrosis. Bowel: There are no transition zones indicate bowel obstruction. There are postsurgical changes of a recent appendectomy. Peritoneum: There is no free intraperitoneal air. There are postsurgical changes present within the abdominal wall. There is a small amount of hyperdense fluid within the pelvis, consistent with hemorrhage. There is scattered very hyperdense foci within this fluid. Vasculature: The abdominal aorta is normal in course and caliber. Adenopathy: None. Pelvic viscera: The bladder, and pelvic viscera are unremarkable. Skeletal structures: There is bilateral L5 spondylolysis. There is a grade 1 spondylolisthesis of L5 on S1. IMPRESSION: 1. Interval appendectomy 2. Small amount of hyperdense fluid within the pelvis, consistent with hemorrhage. Within the area of presumed hemorrhage, there are scattered very hyperdense foci. 3. No evidence of renal injury. Electronically signed by: John Le M.D. 08/13/2016 9:20 PM Dictated Date/Time: 08/13/2016 9:10 PM Laboratory Results 08/13/16 19:35 Red Blood Count 4.80, Mean Corpuscular Volume 89.4, Mean Corpuscular Hemoglobin 32.1, Mean Corpuscular Hemoglobin Concent 35.9, Mean Platelet Volume 10.0, Neutrophils (%) (Auto) 73.7, Lymphocytes (%) (Auto) 13.6, Monocytes (%) (Auto) 6.1, Eosinophils (%) (Auto) 6.0, Basophils (%) (Auto) 0.4, Neutrophils # (Auto) 10.44, Lymphocytes # (Auto) 1.92, Monocytes # (Auto) 0.87, Eosinophils # (Auto) 0.85, Basophils # (Auto) 0.05 08/13/16 19:35 Test 08/13/16 18:33 08/13/16 19:35 Urine Color YELLOW Urine Appearance CLEAR (CLEAR) Urine pH 7.5 (4.5-7.5) Urine Specific [place] 1.024 (1.000-1.030) Urine Protein NEG (NEG) Urine Glucose (UA) NEG (NEG) Urine Ketones NEG (NEG) Urine Occult Blood NEG (NEG) Urine Nitrite NEG (NEG) Urine Bilirubin NEG (NEG) Urine Urobilinogen NEG (NEG) Urine Leukocyte Esterase NEG (NEG) White Blood Count 14.16 K/uL (4.8-10.8) Red Blood Count 4.80 M/uL (4.7-6.1) Hemoglobin 15.4 g/dL (14.0-18.0) Hematocrit 42.9 % (42-52) Mean Corpuscular Volume 89.4 fL (80-100) Mean Corpuscular Hemoglobin 32.1 pg (25-34) Mean Corpuscular Hemoglobin Concent 35.9 g/dl (32-36) Platelet Count 219 K/uL (130-400) Mean Platelet Volume 10.0 fL (7.4-10.4) Neutrophils (%) (Auto) 73.7 % Lymphocytes (%) (Auto) 13.6 % Monocytes (%) (Auto) 6.1 % Eosinophils (%) (Auto) 6.0 % Basophils (%) (Auto) 0.4 % Neutrophils # (Auto) 10.44 K/uL (1.4-6.5) Lymphocytes # (Auto) 1.92 K/uL (1.2-3.4) Monocytes # (Auto) 0.87 K/uL (0.11-0.59) Eosinophils # (Auto) 0.85 K/uL (0-0.5) Basophils # (Auto) 0.05 K/uL (0-0.2) RDW Standard Deviation 43.0 fL (36.4-46.3) RDW Coefficient of Variation 13.2 % (11.5-14.5) Immature Granulocyte % (Auto) 0.2 % Immature Granulocyte # (Auto) 0.03 K/uL (0.00-0.02) Prothrombin Time 11.3 SECONDS (9.0-12.0) Prothromb Time International Ratio 1.1 (0.9-1.1) Activated Partial Thromboplast Time 29.3 SECONDS (21.0-31.0) Partial Thromboplastin Ratio 1.1 Anion Gap 7.0 mmol/L (3-11) Est Creatinine Clear Calc Drug Dose 150.0 ml/min Estimated GFR () 141.7 Estimated GFR (Non- 122.2 BUN/Creatinine Ratio 12.8 (10-20) Calcium Level 8.9 mg/dl (8.5-10.1) Total Bilirubin 0.6 mg/dl (0.2-1) Direct Bilirubin 0.1 mg/dl (0-0.2) Aspartate Amino Transf (AST/SGOT) 25 U/L (15-37) Alanine Aminotransferase (ALT/SGPT) 79 U/L (12-78) Alkaline Phosphatase 90 U/L (45-117) Total Protein 7.3 gm/dl (6.4-8.2) Albumin 4.1 gm/dl (3.4-5.0) Lipase 63 U/L (73-393) Laboratory results reviewed by me Medications Administered Medications (Trade) Dose Ordered Sig/[place] Route Start Time Stop Time Status Last Admin Dose Admin Hydromorphone HCl 1 mg 1 mg Q15M PRN IV 08/13/16 19:45 08/13/16 23:49 DC 08/13/16 22:34 1 MG Sodium Chloride (Nss 1000ml) 1,000 ml @ 999 mls/hr Q1H1M STAT IV 08/13/16 19:43 08/13/16 20:43 DC 08/13/16 19:56 999 MLS/HR Ondansetron HCl (Zofran Inj) 4 mg NOW STAT IV 08/13/16 19:43 08/13/16 19:45 DC 08/13/16 19:55 4 MG Lorazepam (Ativan Tab) 0.5 mg NOW STAT PO 08/13/16 20:28 08/13/16 20:31 DC 08/13/16 20:36 0.5 MG ED Course 1937: The patient was evaluated in room B6. A complete history and physical exam was performed. 1942: Zofran Inj 4mg IV, Sodium Chloride 1000 ml @ 999 mls/hr IV 1944: Dilaudid Inj 1mg IV 2027: Ativan Tab 0.5mg PO 2234: I reevaluated the patient, and he was feeling okay 2255: I discussed the patient's case with Dr. Narayan, Surgery. 2258: I reassessed the patient, and he was feeling well, and he understands the treatment plan. The patient will be discharged home. Medical Decision Triage Nursing notes reviewed. The patient's presentation and history were concerning for abdominal pain and recent surgery. Etiologies such as postoperative pain, postoperative hemorrhage, trauma, diverticulitis, obstruction, inflammatory bowel disease, renal colic, PUD, biliary pathology, pancreatitis, mesenteric ischemia, aortic pathology, infections, genitourinary, UTI, perforated viscus, as well as others were entertained. The patient was evaluated. He was uncomfortable. He was treated with Dilaudid and Zofran. He did feel better with this. The patient did receive a second dose of Dilaudid as there was a high volume in the emergency department causing delays in testing and imaging. He was doing well during this time. No evidence of hypotension or tachycardia. Patient had a slight leukocytosis on CBC. His Chemstrip panel was unremarkable. Urine was unremarkable. LFTs revealed a subtle elevation of ALT. Lipase was normal. The patient underwent CT imaging. This revealed a small amount of hemorrhage in the right pelvis. On reassessment patient was hemodynamically stable. I did consult with Dr. Narayan of general surgery. He felt that the patient is doing very well under the circumstances and would not need any additional procedures or admission to the hospital. He did ask for the patient follow-up with the office tomorrow. The patient indicated his understanding. He has Percocet at home. Bleeding precautions and return instructions were outlined explicitly. The patient will return to the emergency department if he has any problems. By the evaluation outlined above other emergent etiologies such as those listed in the differential, as well as others, were deemed relatively unlikely. The patient was informed about the findings as listed above. All questions were answered and he was pleased with the treatment. Return instructions were outlined and the patient was discharged in stable condition. The patient was referred to general surgery for follow-up tomorrow for a recheck of the current condition. The chart was completed utilizing [employer] voice recognition software. Grammatical errors, random word insertions, pronoun errors, and incomplete sentences are an occasional consequence of this system due to software limitations, ambient noise, and hardware issues. Any formal questions or concerns about the content, text, or information contained within the body of this dictation should be directly addressed to the physician for clarification. Consults Time Called: [phone] Consulting Physician: Dr. Narayan, surgery Returned Call: [phone] I discussed the patient's case with Dr. Narayan, Surgery. Impression Primary Impression: Right lower quadrant abdominal pain Additional Impression: Post-operative hemorrhage Scribe Attestation The scribe's documentation has been prepared under my direction and personally reviewed by me in its entirety. I confirm that the note above accurately reflects all work, treatment, procedures, and medical decision making performed by me. Departure Information Dispostion Home / Self-Care Referrals Harsh Aguilar M.D. (PCP) Forms HOME CARE DOCUMENTATION FORM, IMPORTANT VISIT INFORMATION Patient Instructions [facility] Additional Instructions Follow-up with Dr. Roberts tomorrow. Call the office first thing in the morning. Continue current medications and postoperative care as outlined by surgery. No heavy lifting. No exercising until cleared by surgery. Return to the ER for worsening abdominal pain, passing out, lightheadedness, sweating, vomiting, fevers, bloody stools, or as needed. Problem Qualifiers
[2016-08-14] MEDS ORDERED: FLUO20CA36 PO (15:31)
[2016-08-14] MEDS ORDERED: ATV5X PO (15:31)
[2016-08-14] MEDS ORDERED: OXYC-643 PO (18:35)
[2016-08-19] MEDS ORDERED: RXC5 PO (18:13)
[2016-08-19] MEDS ORDERED: FLUO20CA36 PO (18:13)
[2016-08-19] MEDS ORDERED: PRT40 PO (18:13)
[2016-08-19] MEDS ORDERED: NRN300 PO (18:13)
== END 2016-08-13 23:42 | disposition home or self-care (01) ==
LOC: C.EDB 17:09
DX: K91.840 Postprocedural hemorrhage of a digestive system organ or structure following a digestive system procedure (principal); R31.9 Hematuria, unspecified; F17.200 Nicotine dependence, unspecified, uncomplicated; Z83.3 Family history of diabetes mellitus; Z82.49 Family history of ischemic heart disease and other diseases of the circulatory system

== ENCOUNTER 2016-08-14 16:19 | Inpatient (IN) | payer BC ==
[~2016-08-14] VITALS: Ht 177.8 cm; Wt 91.0 kg
[~2016-08-14 16:19] MED LIST changes: +ATV5X PO; +FLUO20CA36 PO
[2016-08-14] MEDS ORDERED: SODIUM CHLORIDE 0.9% 1000ML 1,000 ML IV STA (18:26)
[2016-08-14] MEDS ORDERED: OXYC-643 PO (18:35)
[2016-08-14] MEDS ORDERED: ONDANSETRON INJ 2 MG/ML 2 ML VIAL IV STA (18:39)
[2016-08-14] MEDS ORDERED: OPTIRAY 320 IV PRN (18:45)
[2016-08-14 18:46] LABS: BASO % 0.6 %; BASO ABS # 0.08 K/uL (0-0.2); COMPLETE YES; EOS % 7.3 %; HEMATOCRIT 42.9 % (42-52); IG% 0.2 %; LYMPH % 20.9 %; LYMPH ABS # 2.73 K/uL (1.2-3.4); MEAN CELL VOLUME 87.9 fL (80-100); MEAN CORPUSCULAR HEMOGLOBIN 31.4 pg (25-34); MEAN CORPUSCULAR HGB CONC 35.7 g/dl (32-36); MEAN PLATELET VOLUME 9.6 fL (7.4-10.4); MONO % 7.7 %; NEUT % 63.3 %; PLATELET COUNT 213 K/uL (130-400); RED BLOOD COUNT 4.88 M/uL (4.7-6.1); WHITE BLOOD COUNT 13.06 K/uL (4.8-10.8)
[2016-08-14] MEDS: HYDROmorphone INJ 1 MG/ML SYR IV PRN ×4 (18:54→23:15)
[2016-08-14 19:05] LABS: BUN/CREATININE RATIO 10.1 (10-20); CALCIUM 9.2 mg/dl (8.5-10.1); CREATININE 0.92 mg/dl (0.60-1.40); POTASSIUM 4.1 mmol/L (3.5-5.1)
[2016-08-14 19:26] LABS: URINE APPEARANCE CLOUDY (CLEAR); URINE BILIRUBIN NEG (NEG); URINE COLOR DK YELLOW; URINE EPITHELIAL CELL AUTO >30 /lpf (0-5); URINE NITRITE NEG (NEG); URINE SPECIFIC GRAVITY 1.032 (1.000-1.030); UROBILINOGEN NEG (NEG)
[2016-08-14 19:27] LABS: MANUAL MICROSCOPIC REQUIRED? NO; REVIEW REQ? YES
[2016-08-14 19:35] LABS: URINE MUCUS PRESENT (NONE PRSENT)
[2016-08-14 19:36] LABS: ZZUR CULT IF INDIC CLEAN CATCH YES
--- NOTE | 2016-08-14 19:50 | DIAGNOSTIC IMAGING REPORT ---
ABDOMEN AND PELVIS CT WITH IV CONTRAST CT DOSE: 551.34 mGy.cm HISTORY: pelvic hemorrhage, post appy TECHNIQUE: Multiaxial CT images of the abdomen and pelvis were performed following the use of intravenous contrast. COMPARISON STUDY: Abdomen and pelvis CT 08/13/2016. FINDINGS: Lower chest: The heart is normal in size and configuration, without pericardial effusion. The lung bases and pleural spaces are clear. Liver: Stable 8 mm hypodense lesion within the right hepatic dome. This is too small to characterize. There is no intrahepatic biliary ductal dilatation. The hepatic veins and portal veins are patent. Gallbladder: Unremarkable. Spleen: Borderline enlarged measuring 12 cm Pancreas: Unremarkable. Adrenal glands: Unremarkable. Kidneys: There is symmetric renal cortical enhancement. The kidneys are normal in size without hydronephrosis. Bowel: There are no transition zones indicate bowel obstruction. There are postsurgical changes of a recent appendectomy. Minimal inflammatory change at the cecal base remains unchanged. This favors postoperative change. Peritoneum: There is no free intraperitoneal air. There are postsurgical changes present within the abdominal wall. There is a small amount of hyperdense fluid within the pelvis, consistent with hemorrhage. There is scattered very hyperdense foci within this fluid. Vasculature: The abdominal aorta is normal in course and caliber. Adenopathy: None. Pelvic viscera: The bladder, and pelvic viscera are unremarkable. Skeletal structures: There is bilateral L5 spondylolysis. There is a grade 1 spondylolisthesis of L5 on S1. IMPRESSION: 1. No significant change from the prior study. Recent appendectomy 2. Small amount of hyperdense fluid within the pelvis, consistent with hemorrhage. Within the area of presumed hemorrhage, there are scattered very hyperdense foci. This may represent a small amount of spilled barium. Electronically signed by: Alex Wilks M.D. 08/14/2016 7:49 PM Dictated Date/Time: 08/14/2016 7:43 PM
--- NOTE | 2016-08-14 23:22 | History and Physical ---
History & Physical Date & Time of Service: Aug 14, 2016 at 23:22 . Chief Complaint: abdominal pain . Primary Care Physician: Harsh Aguilar M.D. . History of Present Illness Source: patient, clinic records, hospital records 21 [address] followed by Dr[address] Aguilar. He generally enjoys good health. Presented to ED 08/08/[address] consistent with acute appendicitis. Appendectomy performed by Dr. María Elena Roberts on 08/08/16. Postop course complicated by urinary retention requiring insertion of [place] catheter. Discharged to home 08/11/16. Fell after slipping on ice or snow on 08/12/16. Seen in ED 08/13/16 for evaluation of lower abdominal pain and gross hematuria. He was afebrile. WBC 14,160, Hgb 15.4. UA negative. CT abdomen and pelvis: small amount of hyperdense fluid within pelvis consistent with hemorrhage. Case was discussed with General Surgery. Patient was discharged to home with arrangements for follow-up. Returned to ED today due to persistent abdominal pain. Pain located primarily in RLQ and seems to radiate toward RUQ. Severity rated as high as 9/10. Tried oxycodone / acetaminophen at home without significant benefit. Noted low grade temp, chills, and sweats. No drainage from surgical incisions. No associated nausea, vomiting, diarrhea, hematochezia. No further urinary symptoms. . Past Medical/Surgical History Medical Problems: (1) Depression Status: Chronic (2) Migraine headache Status: Chronic Surgical Problems: (1) History of reconstruction of anterior cruciate ligament tear Status: Chronic (2) History of rectal sphincterotomy Status: Chronic (3) Status post appendectomy Status: Chronic (4) Status post tonsillectomy Status: Chronic . Family History Diabetes mellitus Heart disease Hypertension Social History Smoking Status: Current Every Day Smoker Alcohol Use: occasionally Drug Use: none Marital Status: single Occupational Status: employed, student Immunizations History of Influenza Vaccine: Yes History of Tetanus Vaccine?: Yes History of Pneumococcal: No History of Hepatitis B Vaccine: Yes Multi-Drug Resistant Organisms History of MDRO: No Allergies Coded Allergies: Ampicillin (Verified Allergy, Intermediate, HIVES, 08/13/16) Cefuroxime (Verified Allergy, Mild, HIVES, 08/13/16) Cephalosporins (Verified Allergy, Unknown, 08/13/16) Clindamycin (Verified Allergy, Unknown, 08/13/16) Penicillins (Verified Allergy, Unknown, 08/13/16) Home Medications Scheduled Fluoxetine HCl (Fluoxetine HCl), 20 MG PO DAILY Scheduled PRN Lorazepam (Lorazepam), 0.5 MG PO DAILY PRN for Anxiety Oxycodone/Acetaminophen 5MG/325MG (Oxycodone/Acetaminophen 5MG/325MG), 1-2 TABS PO Q4H PRN for Pain Review of Systems As noted above in HPI. . Physical Exam Vital Signs Date Time Temp Pulse Resp B/P Pulse Ox O2 Delivery O2 Flow Rate FiO2 08/14/16 23:16 51 20 128/73 97 Room Air 08/14/16 21:45 56 16 121/73 94 Room Air 08/14/16 20:12 50 16 125/71 98 Room Air 08/14/16 19:13 51 08/14/16 18:37 50 16 131/82 97 Room Air 08/14/16 16:39 37.0 73 18 123/75 97 Room Air General Appearance: WD/WN, no apparent distress Head: normocephalic, atraumatic Eyes: normal inspection, PERRL, EOMI, sclerae normal Respiratory/Chest: lungs clear, no respiratory distress Cardiovascular: regular rate, rhythm, no edema, no gallop, no JVD, no murmur Abdomen/GI: normal bowel sounds, soft, no organomegaly, no pulsatile mass, + pertinent finding (mild RLQ tenderness without rebound or guarding; surgical incisions without erythema or drainage) Extremities/Musculoskelatal: normal inspection, no calf tenderness, no pedal edema Neurologic/Psych: alert, oriented x 3 Skin: warm/dry Diagnostics Laboratory Results Results Past 24 Hours Test 08/14/16 18:34 08/14/16 18:35 Range/Units White Blood Count 13.06 4.8-10.8 K/uL Red Blood Count 4.88 4.7-6.1 M/uL Hemoglobin 15.3 14.0-18.0 g/dL Hematocrit 42.9 42-52 % Mean Corpuscular Volume 87.9 80-100 fL Mean Corpuscular Hemoglobin 31.4 25-34 pg Mean Corpuscular Hemoglobin Concent 35.7 32-36 g/dl Platelet Count 213 130-400 K/uL Mean Platelet Volume 9.6 7.4-10.4 fL Neutrophils (%) (Auto) 63.3 % Lymphocytes (%) (Auto) 20.9 % Monocytes (%) (Auto) 7.7 % Eosinophils (%) (Auto) 7.3 % Basophils (%) (Auto) 0.6 % Neutrophils # (Auto) 8.26 1.4-6.5 K/uL Lymphocytes # (Auto) 2.73 1.2-3.4 K/uL Monocytes # (Auto) 1.01 0.11-0.59 K/uL Eosinophils # (Auto) 0.95 0-0.5 K/uL Basophils # (Auto) 0.08 0-0.2 K/uL RDW Standard Deviation 42.2 36.4-46.3 fL RDW Coefficient of Variation 13.3 11.5-14.5 % Immature Granulocyte % (Auto) 0.2 % Immature Granulocyte # (Auto) 0.03 0.00-0.02 K/uL Sodium Level 142 136-145 mmol/L Potassium Level 4.1 3.5-5.1 mmol/L Chloride Level 107 98-107 mmol/L Carbon Dioxide Level 28 21-32 mmol/L Anion Gap 7.0 3-11 mmol/L Blood Urea Nitrogen 9 7-18 mg/dl Creatinine 0.92 0.60-1.40 mg/dl Est Creatinine Clear Calc Drug Dose 144.1 ml/min Estimated GFR () 137.3 Estimated GFR (Non- 118.5 BUN/Creatinine Ratio 10.1 10-20 Random Glucose 80 70-99 mg/dl Calcium Level 9.2 8.5-10.1 mg/dl Total Bilirubin 1.1 0.2-1 mg/dl Direct Bilirubin 0.4 0-0.2 mg/dl Aspartate Amino Transf (AST/SGOT) 65 15-37 U/L Alanine Aminotransferase (ALT/SGPT) 112 12-78 U/L Alkaline Phosphatase 128 45-117 U/L Total Protein 7.4 6.4-8.2 gm/dl Albumin 4.1 3.4-5.0 gm/dl Lipase 63 73-393 U/L Urine Color DK YELLOW Urine Appearance CLOUDY CLEAR Urine pH 8.0 4.5-7.5 Urine Specific [place] 1.032 1.000-1.030 Urine Protein NEG NEG Urine Glucose (UA) NEG NEG Urine Ketones NEG NEG Urine Occult Blood NEG NEG Urine Nitrite NEG NEG Urine Bilirubin NEG NEG Urine Urobilinogen NEG NEG Urine Leukocyte Esterase NEG NEG Urine WBC (Auto) 1-5 0-5 /hpf Urine RBC (Auto) 0-4 0-4 /hpf Urine Hyaline Casts (Auto) 1-5 0-5 /lpf Urine Epithelial Cells (Auto) >30 0-5 /lpf Urine Bacteria (Auto) 1+ NEG Urine Renal Epithelial Cells 0-5 /lpf Urine Mucus PRESENT NONE PRSENT Microbiology Results 08/14/16 Urine Culture, Received Pending Diagnostic Radiology ABDOMEN AND PELVIS CT WITH IV CONTRAST COMPARISON STUDY: Abdomen and pelvis CT 08/13/2016. FINDINGS: Lower chest: The heart is normal in size and configuration, without pericardial effusion. The lung bases and pleural spaces are clear. Liver: Stable 8 mm hypodense lesion within the right hepatic dome. This is too small to characterize. There is no intrahepatic biliary ductal dilatation. The hepatic veins and portal veins are patent. Gallbladder: Unremarkable. Spleen: Borderline enlarged measuring 12 cm Pancreas: Unremarkable. Adrenal glands: Unremarkable. Kidneys: There is symmetric renal cortical enhancement. The kidneys are normal in size without hydronephrosis. Bowel: There are no transition zones indicate bowel obstruction. There are postsurgical changes of a recent appendectomy. Minimal inflammatory change at the cecal base remains unchanged. This favors postoperative change. Peritoneum: There is no free intraperitoneal air. There are postsurgical changes present within the abdominal wall. There is a small amount of hyperdense fluid within the pelvis, consistent with hemorrhage. There is scattered very hyperdense foci within this fluid. Vasculature: The abdominal aorta is normal in course and caliber. Adenopathy: None. Pelvic viscera: The bladder, and pelvic viscera are unremarkable. Skeletal structures: There is bilateral L5 spondylolysis. There is a grade 1 spondylolisthesis of L5 on S1. IMPRESSION: 1. No significant change from the prior study. Recent appendectomy 2. Small amount of hyperdense fluid within the pelvis, consistent with hemorrhage. Within the area of presumed hemorrhage, there are scattered very hyperdense foci. This may represent a small amount of spilled barium. Electronically signed by: Alex Wilks M.D. 08/14/2016 7:49 PM . Impression Assessment and Plan ABDOMINAL PAIN / ABNORMAL CT PELVIS Status post appendectomy 08/08/16. Postoperative RLQ pain. CT findings as noted above. Unclear whether symptoms and CT abnormalities due to appendectomy or subsequent fall. Patient reports fever, chills, and sweats at home. Afebrile in ED. WBC elevated @ 13,060 (but improved since yesterday). No apparent wound infection or abscess per CT. Therefore, will not order antibiotics at this time. H/H stable. ED physician discussed case with General Surgery; they recommended observation in the hospital overnight with reassessment in the morning. VTE PROPHYLAXIS Relatively low risk for VTE. No anticoagulants due to possible pelvic hemorrhage. SCD's. Ambulate. DISPOSITION Observation status on Med-Surg Unit. Expected discharge to home. Family Medicine follow-up with Dr. Aguilar. . VTE Prophylaxis VTE Risk Assessment Done? Y/N: Yes Risk Level: Low Given or contraindicated: SCD's
[2016-08-15] MEDS ORDERED: LORAZEPAM 0.5 MG TAB PO PRN
--- NOTE | 2016-08-15 00:01 | EMERGENCY ROOM VISIT NOTE ---
History Report prepared by Lanie: Betty Sandoval Under the Supervision of: Dr. Trung Grant M.D. First contact with patient: 18:12 Chief Complaint: PAIN (GENERALIZED) Stated Complaint: PAIN - WEAKNESS - FALL History of Present Illness The patient is a 21 year old male who presents to the Emergency Room with complaints of increasing generalized pain that began several days ago. He currently rates his discomfort as a 10/10 in severity. The patient notes that on the 08 of August he had an appendectomy. He notes that he was discharged from the hospital. The patient states that on the he fell on ice. He states that he was evaluated in the emergency department on the and had a CT scan that revealed a small amount of pelvic hemorrhage. The patient notes that his blood counts were good so Dr. Narayan recommended follow up with Dr. Roberts's office tomorrow. He notes that the earliest he could get in was . The patient states that he has had worsening pain and additionally notes that he fell down the steps today. He additionally notes increased difficulty breathing on his right side. Pt denies LOC, headache, fevers, chills , diaphoresis, visual changes, neck pain, chest pain, nausea, vomiting, abdominal pain, back pain, melena, hematochezia, urinary symptoms, numbness, weakness, lymphadenopathy, rash, or other complaints. Source of History: patient Onset: several days ago Position: other (global) Symptom Intensity: 10/10 Quality: other (generalized pain) Timing: worsening, other (increasing) Note: Associated Symptoms: recent fall, difficulty breathing Review of Systems See HPI for pertinent positives and negatives. A total of ten systems were reviewed and were otherwise negative. Past Medical & Surgical Medical Problems: (1) Abdominal pain (2) History of reconstruction of anterior cruciate ligament tear (3) Pneumonia Family History Diabetes mellitus Heart disease Hypertension Social History Smoking Status: Current Every Day Smoker Alcohol Use: none Drug Use: none Marital Status: single Housing Status: lives with family Occupation Status: employed, student Current/Historical Medications Scheduled Fluoxetine HCl (Fluoxetine HCl), 20 MG PO DAILY Scheduled PRN Lorazepam (Lorazepam), 0.5 MG PO DAILY PRN for Anxiety Oxycodone/Acetaminophen 5MG/325MG (Oxycodone/Acetaminophen 5MG/325MG), 1-2 TABS PO Q4H PRN for Pain Allergies Coded Allergies: Ampicillin (Verified Allergy, Intermediate, HIVES, 08/13/16) Cefuroxime (Verified Allergy, Mild, HIVES, 08/13/16) Cephalosporins (Verified Allergy, Unknown, 08/13/16) Clindamycin (Verified Allergy, Unknown, 08/13/16) Penicillins (Verified Allergy, Unknown, 08/13/16) Physical Exam Vital Signs Date Time Temp Pulse Resp B/P Pulse Ox O2 Delivery O2 Flow Rate FiO2 08/14/16 23:16 51 20 128/73 97 Room Air 08/14/16 21:45 56 16 121/73 94 Room Air 08/14/16 20:12 50 16 125/71 98 Room Air 08/14/16 19:13 51 08/14/16 18:37 50 16 131/82 97 Room Air 08/14/16 16:39 37.0 73 18 123/75 97 Room Air Physical Exam GENERAL: Awake, alert, well-appearing, in no distress HENT: Normocephalic, atraumatic. Oropharynx unremarkable. EYES: Normal conjunctiva. Sclera non-icteric. NECK: Supple. No nuchal rigidity. FROM. No JVD. RESPIRATORY: Clear to auscultation. CARDIAC: Regular rate, normal rhythm. Extremities warm and well perfused. Pulses equal. ABDOMEN: Marlin and right lower quadrant tenderness to palpation. Soft, non- distended. No rebound or guarding. No masses. RECTAL: Deferred. MUSCULOSKELETAL: Chest examination reveals no tenderness. The back is symmetrical on inspection without obvious abnormality. There is no CVA tenderness to palpation. No joint edema. LOWER EXTREMITIES: Calves are equal size bilaterally and non-tender. No edema. No discoloration. NEURO: Normal sensorium. No sensory or motor deficits noted. SKIN: No rash or jaundice noted. Medical Decision & Procedures ER Provider Diagnostic Interpretation: CT: Radiology results as stated below per my review and radiologist interpretation ABDOMEN AND PELVIS CT WITH IV CONTRAST CT DOSE: 551.34 mGy.cm HISTORY: pelvic hemorrhage, post appy TECHNIQUE: Multiaxial CT images of the abdomen and pelvis were performed following the use of intravenous contrast. COMPARISON STUDY: Abdomen and pelvis CT 08/13/2016. FINDINGS: Lower chest: The heart is normal in size and configuration, without pericardial effusion. The lung bases and pleural spaces are clear. Liver: Stable 8 mm hypodense lesion within the right hepatic dome. This is too small to characterize. There is no intrahepatic biliary ductal dilatation. The hepatic veins and portal veins are patent. Gallbladder: Unremarkable. Spleen: Borderline enlarged measuring 12 cm Pancreas: Unremarkable. Adrenal glands: Unremarkable. Kidneys: There is symmetric renal cortical enhancement. The kidneys are normal in size without hydronephrosis. Bowel: There are no transition zones indicate bowel obstruction. There are postsurgical changes of a recent appendectomy. Minimal inflammatory change at the cecal base remains unchanged. This favors postoperative change. Peritoneum: There is no free intraperitoneal air. There are postsurgical changes present within the abdominal wall. There is a small amount of hyperdense fluid within the pelvis, consistent with hemorrhage. There is scattered very hyperdense foci within this fluid. Vasculature: The abdominal aorta is normal in course and caliber. Adenopathy: None. Pelvic viscera: The bladder, and pelvic viscera are unremarkable. Skeletal structures: There is bilateral L5 spondylolysis. There is a grade 1 spondylolisthesis of L5 on S1. IMPRESSION: 1. No significant change from the prior study. Recent appendectomy 2. Small amount of hyperdense fluid within the pelvis, consistent with hemorrhage. Within the area of presumed hemorrhage, there are scattered very hyperdense foci. This may represent a small amount of spilled barium. Electronically signed by: Alex Wilks M.D. 08/14/2016 7:49 PM Dictated Date/Time: 08/14/2016 7:43 PM Laboratory Results 08/14/16 18:34 Red Blood Count 4.88, Mean Corpuscular Volume 87.9, Mean Corpuscular Hemoglobin 31.4, Mean Corpuscular Hemoglobin Concent 35.7, Mean Platelet Volume 9.6, Neutrophils (%) (Auto) 63.3, Lymphocytes (%) (Auto) 20.9, Monocytes (%) (Auto) 7.7, Eosinophils (%) (Auto) 7.3, Basophils (%) (Auto) 0.6, Neutrophils # (Auto) 8.26, Lymphocytes # (Auto) 2.73, Monocytes # (Auto) 1.01, Eosinophils # (Auto) 0.95, Basophils # (Auto) 0.08 08/14/16 18:34 Test 08/14/16 18:34 08/14/16 18:35 White Blood Count 13.06 K/uL (4.8-10.8) Red Blood Count 4.88 M/uL (4.7-6.1) Hemoglobin 15.3 g/dL (14.0-18.0) Hematocrit 42.9 % (42-52) Mean Corpuscular Volume 87.9 fL (80-100) Mean Corpuscular Hemoglobin 31.4 pg (25-34) Mean Corpuscular Hemoglobin Concent 35.7 g/dl (32-36) Platelet Count 213 K/uL (130-400) Mean Platelet Volume 9.6 fL (7.4-10.4) Neutrophils (%) (Auto) 63.3 % Lymphocytes (%) (Auto) 20.9 % Monocytes (%) (Auto) 7.7 % Eosinophils (%) (Auto) 7.3 % Basophils (%) (Auto) 0.6 % Neutrophils # (Auto) 8.26 K/uL (1.4-6.5) Lymphocytes # (Auto) 2.73 K/uL (1.2-3.4) Monocytes # (Auto) 1.01 K/uL (0.11-0.59) Eosinophils # (Auto) 0.95 K/uL (0-0.5) Basophils # (Auto) 0.08 K/uL (0-0.2) RDW Standard Deviation 42.2 fL (36.4-46.3) RDW Coefficient of Variation 13.3 % (11.5-14.5) Immature Granulocyte % (Auto) 0.2 % Immature Granulocyte # (Auto) 0.03 K/uL (0.00-0.02) Anion Gap 7.0 mmol/L (3-11) Est Creatinine Clear Calc Drug Dose 144.1 ml/min Estimated GFR () 137.3 Estimated GFR (Non- 118.5 BUN/Creatinine Ratio 10.1 (10-20) Calcium Level 9.2 mg/dl (8.5-10.1) Total Bilirubin 1.1 mg/dl (0.2-1) Direct Bilirubin 0.4 mg/dl (0-0.2) Aspartate Amino Transf (AST/SGOT) 65 U/L (15-37) Alanine Aminotransferase (ALT/SGPT) 112 U/L (12-78) Alkaline Phosphatase 128 U/L (45-117) Total Protein 7.4 gm/dl (6.4-8.2) Albumin 4.1 gm/dl (3.4-5.0) Lipase 63 U/L (73-393) Urine Color DK YELLOW Urine Appearance CLOUDY (CLEAR) Urine pH 8.0 (4.5-7.5) Urine Specific [place] 1.032 (1.000-1.030) Urine Protein NEG (NEG) Urine Glucose (UA) NEG (NEG) Urine Ketones NEG (NEG) Urine Occult Blood NEG (NEG) Urine Nitrite NEG (NEG) Urine Bilirubin NEG (NEG) Urine Urobilinogen NEG (NEG) Urine Leukocyte Esterase NEG (NEG) Urine WBC (Auto) 1-5 /hpf (0-5) Urine RBC (Auto) 0-4 /hpf (0-4) Urine Hyaline Casts (Auto) 1-5 /lpf (0-5) Urine Epithelial Cells (Auto) >30 /lpf (0-5) Urine Bacteria (Auto) 1+ (NEG) Urine Renal Epithelial Cells /lpf (0-5) Urine Mucus PRESENT (NONE PRSENT) Laboratory results reviewed by me Medications Administered Medications (Trade) Dose Ordered Sig/[place] Route Start Time Stop Time Status Last Admin Dose Admin Sodium Chloride (Nss 1000ml) 1,000 ml @ 999 mls/hr Q1H1M STAT IV 08/14/16 18:26 08/14/16 19:26 DC 08/14/16 18:38 999 MLS/HR Ondansetron HCl (Zofran Inj) 4 mg NOW STAT IV 08/14/16 18:39 08/14/16 18:41 DC 08/14/16 18:54 4 MG Hydromorphone HCl (Dilaudid Inj) 1 mg Q15M PRN IV 08/14/16 18:45 08/28/16 18:44 08/14/16 23:15 1 MG ED Course 182: The patient was evaluated in room A4B. A complete history and physical exam was performed. 1826: Ordered Sodium Chloride 1000 ml @ 999 mls/hr IV. 183: Ordered Zofran Inj 4 mg IV. 1843: I discussed the patients case with Dr. Patten, General Surgery. He recommends CT imaging for the patient. 1845: Ordered Dilaudid Inj 1 mg IV. 1905: I reevaluated the patient and he is feeling better after the pain medication. 2005: I discussed the patients case with Dr. Patten, General Surgery. He states that the patient should follow up with Dr. Roberts, General Surgery and get the patients pain under control. 2028: I reevaluated the patient and he is still experiencing pain. I discussed all the exam findings with him and I discussed the treatment plan. He verbalized complete understanding and agreement. The hospitalist will be consulted. 2113: I discussed the patients case with Melvi Wong. He is going to evaluate the patient for further treatment. Medical Decision Triage Nursing notes reviewed. The patient's presentation and history were concerning for abdominal pain post surgery.. Etiologies such as Postoperative pain, postoperative infection, postoperative hemorrhage, diverticulitis, obstruction, inflammatory bowel disease, renal colic, PUD, biliary pathology, pancreatitis, mesenteric ischemia, aortic pathology, infections, genitourinary, UTI, perforated viscus, as well as others were entertained. The patient was evaluated again. His abdominal examination was slightly more tender than yesterday but there was no peritoneal findings. Surgery recommended conservative management. His surgery was not able to see him today. He had increasing pain and came back to the Emergency Room. He was given IV Dilaudid and Zofran. He was hydrated. I discussed the case right after I examined him with Dr. Patten from Gen. surgery. He did recommend repeat imaging to evaluate for possible increasing hemorrhage. This was done. The patient had a leukocytosis on CBC but no anemia. His leukocytosis was decreased from yesterday. Urinalysis was negative. He did have slightly increased elevation of his LFTs. The patient has had no right upper quadrant tenderness. Dr. Patten reviewed the patient's imaging and noted that it was the same as yesterday. He recommended internal medicine admission for pain control and he will consult. I did discuss case with the patient. He feels comfortable with admission. I consulted with Dr. Jackson of the hospital service. He evaluated the patient in the Emergency Room and admitted him for further management. The chart was completed utilizing [employer] Speech voice recognition software. Grammatical errors, random word insertions, pronoun errors, and incomplete sentences are an occasional consequence of this system due to software limitations, ambient noise, and hardware issues. Any formal questions or concerns about the content, text, or information contained within the body of this dictation should be directly addressed to the physician for clarification. Consults Time Called: 1829 Consulting Physician: Dr. Patten, General Surgery Returned Call: [phone] I discussed the patients case with Dr. Patten General Surgery. He recommends CT imaging for the patient. Additional Consults: Time Called: 2031 Consulted Physician: Melvi Wong Returned Call: [phone] Additional Comments: I discussed the patients case with Melvi Wong. He is going to evaluate the patient for further treatment. Impression Primary Impression: Lower abdominal pain Additional Impression: Post-operative hemorrhage Scribe Attestation The scribe's documentation has been prepared under my direction and personally reviewed by me in its entirety. I confirm that the note above accurately reflects all work, treatment, procedures, and medical decision making performed by me. Departure Information Dispostion Being Evaluated By Hospitalist Harsh Concepcion M.D. (PCP) Problem Qualifiers
[2016-08-15 00:30] VITALS: BP 132/82; PULSE 55; TEMP 36.9; O2SAT 95; Ht 177.8 cm; Wt 91.0 kg
[2016-08-15] MEDS ORDERED: IV FLUIDS COMPLETED PRN (00:30)
[2016-08-15 00:31] VITALS: BP 132/82; PULSE 55; TEMP 36.9; O2SAT 96
[2016-08-15] MEDS: HYDROmorphone INJ 1 MG/ML SYR IV PRN ×6 (00:41→21:45)
[2016-08-15] MEDS: OXYCODONE/ACETAMINOPHEN 5-325 TAB PO PRN ×5 (01:41→23:54)
--- NOTE | 2016-08-15 05:55 | Medical Consult ---
Consultation Date of Consultation: Aug 15, 2016. Attending Physician: Man Benitez M.D. Reason for Consultation: abd pain History of Present Illness adm with abd pain in lower abd- s/p lap appy 08/08, d/c 08/11, fell Sun 08/12 to ER 08/13 and 08/14 c/o lower abd pain CT both days showed fluid in pelvis- small amount , prob blood- H/H stable, mildly elevated WBC no N/V Past Medical/Surgical History Medical Problems: (1) Appendicitis Status: Acute (2) Lower abdominal pain Status: Acute (3) Post-operative hemorrhage Status: Acute (4) Viral illness Status: Acute Family History Diabetes mellitus Heart disease Hypertension Social History Smoking Status: Current Every Day Smoker Alcohol Use: occasionally Drug Use: none Marital Status: single Housing Status: lives with family Occupation Status: employed, student Allergies Coded Allergies: Ampicillin (Verified Allergy, Intermediate, HIVES, 08/13/16) Cefuroxime (Verified Allergy, Mild, HIVES, 08/13/16) Cephalosporins (Verified Allergy, Unknown, 08/13/16) Clindamycin (Verified Allergy, Unknown, 08/13/16) Penicillins (Verified Allergy, Unknown, 08/13/16) Current Inpatient Medications Current Inpatient Medications Medications (Trade) Dose Ordered Sig/[place] Route Start Time Stop Time Status Last Admin Dose Admin Ioversol (Optiray 320) 125 ml UD PRN IV 08/14/16 18:45 08/18/16 18:44 Fluoxetine HCl (Prozac Cap) 20 mg DAILY PO 08/15/16 09:00 09/14/16 08:59 Lorazepam (Ativan Tab) 0.5 mg DAILY PRN PO 08/15/16 00:00 09/14/16 00:00 08/15/16 01:40 0.5 MG Oxycodone/ Acetaminophen (Percocet 5-325mg Tab) 2 tab Q4H PRN PO 08/15/16 00:00 08/29/16 00:00 08/15/16 01:41 2 TAB Hydromorphone HCl (Dilaudid Inj) 1 mg Q4H PRN IV 08/15/16 00:00 08/29/16 00:00 08/15/16 04:44 1 MG Miscellaneous 1 ea 1 ea PRN PRN N/A 08/15/16 00:30 08/15/17 00:29 Lactated Ringer's (Lr 1000ml) 1,000 ml @ 125 mls/hr Q8H IV 08/15/16 05:45 09/14/16 05:44 UNV Review of Systems Constitutional: No chills, No fever Respiratory: No cough, No shortness of breath Cardiovascular: No chest pain Physical Exam Date Time Temp Pulse Resp B/P Pulse Ox O2 Delivery O2 Flow Rate FiO2 08/15/16 01:00 Room Air 08/15/16 00:31 36.9 55 16 132/82 96 Room Air 08/15/16 00:30 36.9 55 18 132/82 95 Room Air 08/15/16 00:19 52 20 135/75 96 08/14/16 23:16 51 20 128/73 97 Room Air 08/14/16 21:45 56 16 121/73 94 Room Air 08/14/16 20:12 50 16 125/71 98 Room Air 08/14/16 19:13 51 08/14/16 18:37 50 16 131/82 97 Room Air 08/14/16 16:39 37.0 73 18 123/75 97 Room Air General Appearance: no apparent distress Neck: supple Respiratory/Chest: no respiratory distress Cardiovascular: regular rate, rhythm Abdomen/GI: normal bowel sounds (mild lower abd tenderness), soft Laboratory Results Last 24 Hours Test 08/14/16 18:34 08/14/16 18:35 08/15/16 04:44 White Blood Count 13.06 K/uL Red Blood Count 4.88 M/uL Hemoglobin 15.3 g/dL Hematocrit 42.9 % Mean Corpuscular Volume 87.9 fL Mean Corpuscular Hemoglobin 31.4 pg Mean Corpuscular Hemoglobin Concent 35.7 g/dl Platelet Count 213 K/uL Mean Platelet Volume 9.6 fL Neutrophils (%) (Auto) 63.3 % Lymphocytes (%) (Auto) 20.9 % Monocytes (%) (Auto) 7.7 % Eosinophils (%) (Auto) 7.3 % Basophils (%) (Auto) 0.6 % Neutrophils # (Auto) 8.26 K/uL Lymphocytes # (Auto) 2.73 K/uL Monocytes # (Auto) 1.01 K/uL Eosinophils # (Auto) 0.95 K/uL Basophils # (Auto) 0.08 K/uL RDW Standard Deviation 42.2 fL RDW Coefficient of Variation 13.3 % Immature Granulocyte % (Auto) 0.2 % Immature Granulocyte # (Auto) 0.03 K/uL Sodium Level 142 mmol/L Potassium Level 4.1 mmol/L Chloride Level 107 mmol/L Carbon Dioxide Level 28 mmol/L Anion Gap 7.0 mmol/L Blood Urea Nitrogen 9 mg/dl Creatinine 0.92 mg/dl Est Creatinine Clear Calc Drug Dose 144.1 ml/min Estimated GFR () 137.3 Estimated GFR (Non- 118.5 BUN/Creatinine Ratio 10.1 Random Glucose 80 mg/dl Calcium Level 9.2 mg/dl Total Bilirubin 1.1 mg/dl Direct Bilirubin 0.4 mg/dl Aspartate Amino Transf (AST/SGOT) 65 U/L Alanine Aminotransferase (ALT/SGPT) 112 U/L Alkaline Phosphatase 128 U/L Total Protein 7.4 gm/dl Albumin 4.1 gm/dl Lipase 63 U/L Urine Color DK YELLOW Urine Appearance CLOUDY Urine pH 8.0 Urine Specific [place] 1.032 Urine Protein NEG Urine Glucose (UA) NEG Urine Ketones NEG Urine Occult Blood NEG Urine Nitrite NEG Urine Bilirubin NEG Urine Urobilinogen NEG Urine Leukocyte Esterase NEG Urine WBC (Auto) 1-5 /hpf Urine RBC (Auto) 0-4 /hpf Urine Hyaline Casts (Auto) 1-5 /lpf Urine Epithelial Cells (Auto) >30 /lpf Urine Bacteria (Auto) 1+ Urine Renal Epithelial Cells /lpf Urine Mucus PRESENT Assessment & Plan 08/15/16- lower abd pain s/p lap appy and fall with small amount of blood in pelvis. no evidence of active bleeding or surgical infection- sites look good on exam and CT. for now , supportive care- IV fluid, pain control - will discuss with Dr Roberts's team
[2016-08-15] MEDS: LACTATED RINGER'S 1000ML 1,000 ML IV SCH ×3 (06:11→21:14)
[2016-08-15 07:07] LABS: HEMATOCRIT 38.9 % (42-52); MEAN CELL VOLUME 88.2 fL (80-100); MEAN CORPUSCULAR HEMOGLOBIN 31.1 pg (25-34); MEAN CORPUSCULAR HGB CONC 35.2 g/dl (32-36); MEAN PLATELET VOLUME 9.6 fL (7.4-10.4); PLATELET COUNT 188 K/uL (130-400); RED BLOOD COUNT 4.41 M/uL (4.7-6.1); WHITE BLOOD COUNT 9.67 K/uL (4.8-10.8)
[2016-08-15 07:37] LABS: BLOOD UREA NITROGEN 8 mg/dl (7-18); BUN/CREATININE RATIO 10.8 (10-20); CALCIUM 8.6 mg/dl (8.5-10.1); CARBON DIOXIDE 30 mmol/L (21-32); CHLORIDE 104 mmol/L (98-107); CREATININE 0.77 mg/dl (0.60-1.40); GLUCOSE 72 mg/dl (70-99); POTASSIUM 3.9 mmol/L (3.5-5.1); SODIUM 140 mmol/L (136-145)
[2016-08-15 08:07] VITALS: BP 120/63; PULSE 52; TEMP 36.6; O2SAT 96
[2016-08-15] MEDS: FLUOXETINE HCL 20 MG CAP PO SCH (08:47)
[2016-08-15] MEDS ORDERED: ONDANSETRON INJ 2 MG/ML 2 ML VIAL IV STA (11:34)
--- NOTE | 2016-08-15 13:21 | Surgery Progress Note ---
Surgery Progress Note Date of Service Aug 15, 2016. Subjective Post OP Day: HD # 1, POD # 7 s/p laparoscopic appendectomy "not feeling well" +abdominal pain Tolerated regular diet for lunch has been nauseous for day and a half NO vomiting passing flatus Last BM last night, watery feeling fatigued and very weak Objective Vital Signs: Date Time Temp Pulse Resp B/P Pulse Ox O2 Delivery O2 Flow Rate FiO2 08/15/16 08:07 36.6 52 16 120/63 96 Room Air 08/15/16 08:04 Room Air 08/15/16 01:00 Room Air 08/15/16 00:31 36.9 55 16 132/82 96 Room Air 08/15/16 00:30 36.9 55 18 132/82 95 Room Air 08/15/16 00:19 52 20 135/75 96 08/14/16 23:16 51 20 128/73 97 Room Air 08/14/16 21:45 56 16 121/73 94 Room Air 08/14/16 20:12 50 16 125/71 98 Room Air 08/14/16 19:13 51 08/14/16 18:37 50 16 131/82 97 Room Air 08/14/16 16:39 37.0 73 18 123/75 97 Room Air General Appearance: WD/WN, no apparent distress Head: normocephalic, atraumatic Neck: no adenopathy Respiratory/Chest: lungs clear, normal breath sounds, no respiratory distress, no accessory muscle use Cardiovascular: regular rate, rhythm Abdomen: non distended, soft, + tenderness (generalized however no guarding, rebound, or peritonitis) Incision(s): clean, dry, intact, no erythema, no drainage Extremities: non-tender, normal inspection, no pedal edema, no calf tenderness Laboratory Results: Results Past 24 Hours Test 08/14/16 18:34 08/14/16 18:35 08/15/16 06:54 Range/Units White Blood Count 13.06 9.67 4.8-10.8 K/uL Red Blood Count 4.88 4.41 4.7-6.1 M/uL Hemoglobin 15.3 13.7 14.0-18.0 g/dL Hematocrit 42.9 38.9 42-52 % Mean Corpuscular Volume 87.9 88.2 80-100 fL Mean Corpuscular Hemoglobin 31.4 31.1 25-34 pg Mean Corpuscular Hemoglobin Concent 35.7 35.2 32-36 g/dl Platelet Count 213 188 130-400 K/uL Mean Platelet Volume 9.6 9.6 7.4-10.4 fL Neutrophils (%) (Auto) 63.3 % Lymphocytes (%) (Auto) 20.9 % Monocytes (%) (Auto) 7.7 % Eosinophils (%) (Auto) 7.3 % Basophils (%) (Auto) 0.6 % Neutrophils # (Auto) 8.26 1.4-6.5 K/uL Lymphocytes # (Auto) 2.73 1.2-3.4 K/uL Monocytes # (Auto) 1.01 0.11-0.59 K/uL Eosinophils # (Auto) 0.95 0-0.5 K/uL Basophils # (Auto) 0.08 0-0.2 K/uL RDW Standard Deviation 42.2 43.5 36.4-46.3 fL RDW Coefficient of Variation 13.3 13.4 11.5-14.5 % Immature Granulocyte % (Auto) 0.2 % Immature Granulocyte # (Auto) 0.03 0.00-0.02 K/uL Sodium Level 142 140 136-145 mmol/L Potassium Level 4.1 3.9 3.5-5.1 mmol/L Chloride Level 107 104 98-107 mmol/L Carbon Dioxide Level 28 30 21-32 mmol/L Anion Gap 7.0 6.0 3-11 mmol/L Blood Urea Nitrogen 9 8 7-18 mg/dl Creatinine 0.92 0.77 0.60-1.40 mg/dl Est Creatinine Clear Calc Drug Dose 144.1 172.1 ml/min Estimated GFR () 137.3 > 150.0 Estimated GFR (Non- 118.5 129.7 BUN/Creatinine Ratio 10.1 10.8 10-20 Random Glucose 80 72 70-99 mg/dl Calcium Level 9.2 8.6 8.5-10.1 mg/dl Total Bilirubin 1.1 0.2-1 mg/dl Direct Bilirubin 0.4 0-0.2 mg/dl Aspartate Amino Transf (AST/SGOT) 65 15-37 U/L Alanine Aminotransferase (ALT/SGPT) 112 12-78 U/L Alkaline Phosphatase 128 45-117 U/L Total Protein 7.4 6.4-8.2 gm/dl Albumin 4.1 3.4-5.0 gm/dl Lipase 63 73-393 U/L Urine Color DK YELLOW Urine Appearance CLOUDY CLEAR Urine pH 8.0 4.5-7.5 Urine Specific [place] 1.032 1.000-1.030 Urine Protein NEG NEG Urine Glucose (UA) NEG NEG Urine Ketones NEG NEG Urine Occult Blood NEG NEG Urine Nitrite NEG NEG Urine Bilirubin NEG NEG Urine Urobilinogen NEG NEG Urine Leukocyte Esterase NEG NEG Urine WBC (Auto) 1-5 0-5 /hpf Urine RBC (Auto) 0-4 0-4 /hpf Urine Hyaline Casts (Auto) 1-5 0-5 /lpf Urine Epithelial Cells (Auto) >30 0-5 /lpf Urine Bacteria (Auto) 1+ NEG Urine Renal Epithelial Cells 0-5 /lpf Urine Mucus PRESENT NONE PRSENT Microbiology Results 08/14/16 Urine Culture, Received Pending Diagnostic Interpretation: CT scan of abdomen and pelvis IMPRESSION: 1. No significant change from the prior study. Recent appendectomy 2. Small amount of hyperdense fluid within the pelvis, consistent with hemorrhage. Within the area of presumed hemorrhage, there are scattered very hyperdense foci. This may represent a small amount of spilled barium. Assessment & Plan POD # 7 s/p Laparoscopic appendectomy - Admitted last evening with lower abdominal pain, s/p fall on Saturday x 2 - +weakness - CT scan showing small amount of fluid in pelvis, possible blood - H&H stable - abdominal examination soft, normal bowel sounds, no peritonitis, rigidity or guarding Plan: Continue supportive care with IV fluids, IV pain medication prn and IV Zofran prn Repeat set of labs in am, cbc, cmp No surgical indication at this time, abdomen soft, no rigidity or guarding. Discussed with Dr. Roberts who is in agreement with above stated findings and treatment plan. Pt seen and examined. Was doing better on Saturday until fall. Landed on and bruised right side. [place] progressively weaker and having a hard time controlling his pain since. CT scan x 2 reviewed - small amount of blood in pelvis (likely from immediate postop given mild drop in hgb following appy) - stable with no sign of continued bleeding. Hgb is actually higher now then immediately postop. Exam is benign - tender in right side. Did well with toradol - would reorder as no active bleeding. Consider PO dilaudid as percocet does not seem to do much for him. Follow lft's as unclear why they are elevated (?result of fall). No sign of abscess.
[2016-08-15 14:50] VITALS: BP 116/73; PULSE 7; PULSE 71; TEMP 36.6; O2SAT 94
--- NOTE | 2016-08-15 16:41 | Progress Note ---
Internal Med Progress Note Date of Service: Aug 15, 2016. Provider Documentation: SUBJECTIVE: The patient was seem and examined Still complains of pain in lower quadrants Mostly on the right side Has Nausea ,no vomiting OBJECTIVE: Vital Signs-as noted below Exam: General-minimal distress at rest Eyes-normal ENT-normal Neck-supple Lungs-clear to ausucltate bilaterally Heart-regular,no murmur Abdomen-benign,tender RLQ with some guarding ,bowel sound present Extremities-no edema Neuro-AAOx3 Lab data as noted below. ASSESSMENT & PLAN: ABDOMINAL PAIN ,Status post appendectomy 08/08/16. Mostly RLQ Weakness with fall after surgery CT abd small amount of Blood but no abscess Pt is afebrile and WCC is not elevated Appreciate Surgery input Conservative management with IVF,Pain and symptomatic medications VTE PROPHYLAXIS Relatively low risk for VTE. No anticoagulants due to possible pelvic hemorrhage. SCD's. Increase ambulation DISPOSITION Observation status on Med-Surg Unit. Expected discharge to home. Family Medicine follow-up with Dr. Aguilar. Vital Signs: Date Time Temp Pulse Resp B/P Pulse Ox O2 Delivery O2 Flow Rate FiO2 08/15/16 14:50 36.6 71 18 116/73 94 Room Air 08/15/16 08:07 36.6 52 16 120/63 96 Room Air 08/15/16 08:04 Room Air 08/15/16 01:00 Room Air 08/15/16 00:31 36.9 55 16 132/82 96 Room Air 08/15/16 00:30 36.9 55 18 132/82 95 Room Air 08/15/16 00:19 52 20 135/75 96 08/14/16 23:16 51 20 128/73 97 Room Air 08/14/16 21:45 56 16 121/73 94 Room Air 08/14/16 20:12 50 16 125/71 98 Room Air 08/14/16 19:13 51 08/14/16 18:37 50 16 131/82 97 Room Air 08/14/16 16:39 37.0 73 18 123/75 97 Room Air Lab Results: Results Past 24 Hours Test 08/14/16 18:34 08/14/16 18:35 08/15/16 06:54 Range/Units White Blood Count 13.06 9.67 4.8-10.8 K/uL Red Blood Count 4.88 4.41 4.7-6.1 M/uL Hemoglobin 15.3 13.7 14.0-18.0 g/dL Hematocrit 42.9 38.9 42-52 % Mean Corpuscular Volume 87.9 88.2 80-100 fL Mean Corpuscular Hemoglobin 31.4 31.1 25-34 pg Mean Corpuscular Hemoglobin Concent 35.7 35.2 32-36 g/dl Platelet Count 213 188 130-400 K/uL Mean Platelet Volume 9.6 9.6 7.4-10.4 fL Neutrophils (%) (Auto) 63.3 % Lymphocytes (%) (Auto) 20.9 % Monocytes (%) (Auto) 7.7 % Eosinophils (%) (Auto) 7.3 % Basophils (%) (Auto) 0.6 % Neutrophils # (Auto) 8.26 1.4-6.5 K/uL Lymphocytes # (Auto) 2.73 1.2-3.4 K/uL Monocytes # (Auto) 1.01 0.11-0.59 K/uL Eosinophils # (Auto) 0.95 0-0.5 K/uL Basophils # (Auto) 0.08 0-0.2 K/uL RDW Standard Deviation 42.2 43.5 36.4-46.3 fL RDW Coefficient of Variation 13.3 13.4 11.5-14.5 % Immature Granulocyte % (Auto) 0.2 % Immature Granulocyte # (Auto) 0.03 0.00-0.02 K/uL Sodium Level 142 140 136-145 mmol/L Potassium Level 4.1 3.9 3.5-5.1 mmol/L Chloride Level 107 104 98-107 mmol/L Carbon Dioxide Level 28 30 21-32 mmol/L Anion Gap 7.0 6.0 3-11 mmol/L Blood Urea Nitrogen 9 8 7-18 mg/dl Creatinine 0.92 0.77 0.60-1.40 mg/dl Est Creatinine Clear Calc Drug Dose 144.1 172.1 ml/min Estimated GFR () 137.3 > 150.0 Estimated GFR (Non- 118.5 129.7 BUN/Creatinine Ratio 10.1 10.8 10-20 Random Glucose 80 72 70-99 mg/dl Calcium Level 9.2 8.6 8.5-10.1 mg/dl Total Bilirubin 1.1 0.2-1 mg/dl Direct Bilirubin 0.4 0-0.2 mg/dl Aspartate Amino Transf (AST/SGOT) 65 15-37 U/L Alanine Aminotransferase (ALT/SGPT) 112 12-78 U/L Alkaline Phosphatase 128 45-117 U/L Total Protein 7.4 6.4-8.2 gm/dl Albumin 4.1 3.4-5.0 gm/dl Lipase 63 73-393 U/L Urine Color DK YELLOW Urine Appearance CLOUDY CLEAR Urine pH 8.0 4.5-7.5 Urine Specific [place] 1.032 1.000-1.030 Urine Protein NEG NEG Urine Glucose (UA) NEG NEG Urine Ketones NEG NEG Urine Occult Blood NEG NEG Urine Nitrite NEG NEG Urine Bilirubin NEG NEG Urine Urobilinogen NEG NEG Urine Leukocyte Esterase NEG NEG Urine WBC (Auto) 1-5 0-5 /hpf Urine RBC (Auto) 0-4 0-4 /hpf Urine Hyaline Casts (Auto) 1-5 0-5 /lpf Urine Epithelial Cells (Auto) >30 0-5 /lpf Urine Bacteria (Auto) 1+ NEG Urine Renal Epithelial Cells 0-5 /lpf Urine Mucus PRESENT NONE PRSENT Microbiology Results 08/14/16 Urine Culture - Preliminary, Resulted NO GROWTH - LESS THAN 1,000 COLONIES/...
[2016-08-15] MEDS ORDERED: KETOROLAC TROMETHAMINE 15 MG/ML VIAL IV PRN (18:00)
[2016-08-15] MEDS: LORAZEPAM 0.5 MG TAB PO PRN (21:45)
[2016-08-15 23:11] VITALS: BP 128/76; PULSE 50; TEMP 36.7; O2SAT 97
[2016-08-16] MEDS: HYDROmorphone INJ 1 MG/ML SYR IV PRN ×4 (02:35→18:39)
[2016-08-16] MEDS: LACTATED RINGER'S 1000ML 1,000 ML IV SCH ×3 (05:28→21:31)
[2016-08-16 07:29] LABS: HEMATOCRIT 37.7 % (42-52); MEAN CELL VOLUME 89.8 fL (80-100); MEAN CORPUSCULAR HGB CONC 34.5 g/dl (32-36); MEAN PLATELET VOLUME 10.2 fL (7.4-10.4); PLATELET COUNT 177 K/uL (130-400)
[2016-08-16] MEDS ORDERED: LORAZEPAM 0.5 MG TAB PO PRN (08:00)
[2016-08-16 08:08] LABS: BUN/CREATININE RATIO 11.1 (10-20); CALCIUM 8.5 mg/dl (8.5-10.1); CREATININE 0.82 mg/dl (0.60-1.40); POTASSIUM 3.8 mmol/L (3.5-5.1)
[2016-08-16 08:10] LABS: ALB/GLOB RATIO 1.3 (0.9-2)
[2016-08-16] MEDS: FLUOXETINE HCL 20 MG CAP PO SCH (09:00)
[2016-08-16] MEDS: OXYCODONE/ACETAMINOPHEN 5-325 TAB PO PRN ×3 (09:03→20:14)
--- NOTE | 2016-08-16 13:30 | Surgery Progress Note ---
Surgery Progress Note Date of Service Aug 16, 2016. Subjective Feels about the same. Still needing IV pain meds. Bowels are now functioning and just had a bowel movement. Notes intermittent nausea but no vomiting and is keeping down a regular diet. IV toradol stopped as lft's increased today. Objective Vital Signs: Date Time Temp Pulse Resp B/P Pulse Ox O2 Delivery O2 Flow Rate FiO2 08/16/16 09:00 Room Air 08/15/16 23:50 Room Air 08/15/16 23:11 36.7 50 16 128/76 97 Room Air 08/15/16 16:00 Room Air 08/15/16 14:50 36.6 71 18 116/73 94 Room Air General Appearance: WD/WN, no apparent distress Abdomen: normal bowel sounds, non distended, soft, + tenderness (right side, no rebound) Incision(s): clean, dry, intact Laboratory Results: Results Past 24 Hours Test 08/16/16 06:49 Range/Units White Blood Count 7.00 4.8-10.8 K/uL Red Blood Count 4.20 4.7-6.1 M/uL Hemoglobin 13.0 14.0-18.0 g/dL Hematocrit 37.7 42-52 % Mean Corpuscular Volume 89.8 80-100 fL Mean Corpuscular Hemoglobin 31.0 25-34 pg Mean Corpuscular Hemoglobin Concent 34.5 32-36 g/dl RDW Standard Deviation 45.0 36.4-46.3 fL RDW Coefficient of Variation 13.6 11.5-14.5 % Platelet Count 177 130-400 K/uL Mean Platelet Volume 10.2 7.4-10.4 fL Sodium Level 143 136-145 mmol/L Potassium Level 3.8 3.5-5.1 mmol/L Chloride Level 106 98-107 mmol/L Carbon Dioxide Level 31 21-32 mmol/L Anion Gap 6.0 3-11 mmol/L Blood Urea Nitrogen 9 7-18 mg/dl Creatinine 0.82 0.60-1.40 mg/dl Est Creatinine Clear Calc Drug Dose 161.6 ml/min Estimated GFR () 146.5 Estimated GFR (Non- 126.4 BUN/Creatinine Ratio 11.1 10-20 Random Glucose 75 70-99 mg/dl Calcium Level 8.5 8.5-10.1 mg/dl Total Bilirubin 0.8 0.2-1 mg/dl Aspartate Amino Transf (AST/SGOT) 121 15-37 U/L Alanine Aminotransferase (ALT/SGPT) 159 12-78 U/L Alkaline Phosphatase 152 45-117 U/L Total Protein 6.2 6.4-8.2 gm/dl Albumin 3.5 3.4-5.0 gm/dl Globulin 2.7 2.5-4.0 gm/dl Albumin/Globulin Ratio 1.3 0.9-2 Assessment & Plan POD # 8 s/p Laparoscopic appendectomy Unclear etiology of continued pain. ? related to falls as he does not appear to have a postsurgical issue. H/H relatively stable. No sign of active bleeding or abscess. Bowels now functioning. Continuing to use IV pain medications and lft' s are increasing although bilirubin normal. ? drug induced liver injury vs trauma induced. No need for surgical intervention. Continue supportive care. Will sign off. Please call if questions or situation changes.
[2016-08-16] MEDS: LORAZEPAM 0.5 MG TAB PO PRN (15:02)
[2016-08-16 15:36] VITALS: BP 114/53; PULSE 55; TEMP 36.6; O2SAT 96
--- NOTE | 2016-08-16 15:44 | Progress Note ---
Internal Med Progress Note Date of Service: Aug 16, 2016. Provider Documentation: SUBJECTIVE: The patient was seem and examined Still complains of pain in lower quadrants Mostly on the right side Has Nausea ,no vomiting No improvement of general condition OBJECTIVE: Vital Signs-as noted below Exam: General-minimal distress at rest Eyes-normal ENT-normal Neck-supple Lungs-clear to ausucltate bilaterally Heart-regular,no murmur Abdomen-benign,tender RLQ with some guarding ,bowel sound present Extremities-no edema Neuro-AAOx3 Lab data as noted below. ASSESSMENT & PLAN: ABDOMINAL PAIN ,Status post appendectomy 08/08/16. Mostly RLQ Weakness with fall after surgery CT abd small amount of Blood but no abscess Pt is afebrile and WCC is not elevated Appreciate Surgery input Conservative management with IVF,Pain and symptomatic medications Surgery Signed off Elevated Liver Enzymes Likely due to medications No Upper Q pain Will monitor If better by tomorrow ,will discharge VTE PROPHYLAXIS Relatively low risk for VTE. No anticoagulants due to possible pelvic hemorrhage. SCD's. Increase ambulation DISPOSITION Observation status on Med-Surg Unit. Expected discharge to home. Family Medicine follow-up with Dr. Aguilar. Vital Signs: Date Time Temp Pulse Resp B/P Pulse Ox O2 Delivery O2 Flow Rate FiO2 08/16/16 15:36 36.6 55 18 114/53 96 Room Air 08/16/16 12:15 Room Air 08/16/16 09:00 Room Air 08/15/16 23:50 Room Air 08/15/16 23:11 36.7 50 16 128/76 97 Room Air 08/15/16 16:00 Room Air Lab Results: Results Past 24 Hours Test 08/16/16 06:49 Range/Units White Blood Count 7.00 4.8-10.8 K/uL Red Blood Count 4.20 4.7-6.1 M/uL Hemoglobin 13.0 14.0-18.0 g/dL Hematocrit 37.7 42-52 % Mean Corpuscular Volume 89.8 80-100 fL Mean Corpuscular Hemoglobin 31.0 25-34 pg Mean Corpuscular Hemoglobin Concent 34.5 32-36 g/dl RDW Standard Deviation 45.0 36.4-46.3 fL RDW Coefficient of Variation 13.6 11.5-14.5 % Platelet Count 177 130-400 K/uL Mean Platelet Volume 10.2 7.4-10.4 fL Sodium Level 143 136-145 mmol/L Potassium Level 3.8 3.5-5.1 mmol/L Chloride Level 106 98-107 mmol/L Carbon Dioxide Level 31 21-32 mmol/L Anion Gap 6.0 3-11 mmol/L Blood Urea Nitrogen 9 7-18 mg/dl Creatinine 0.82 0.60-1.40 mg/dl Est Creatinine Clear Calc Drug Dose 161.6 ml/min Estimated GFR () 146.5 Estimated GFR (Non- 126.4 BUN/Creatinine Ratio 11.1 10-20 Random Glucose 75 70-99 mg/dl Calcium Level 8.5 8.5-10.1 mg/dl Total Bilirubin 0.8 0.2-1 mg/dl Aspartate Amino Transf (AST/SGOT) 121 15-37 U/L Alanine Aminotransferase (ALT/SGPT) 159 12-78 U/L Alkaline Phosphatase 152 45-117 U/L Total Protein 6.2 6.4-8.2 gm/dl Albumin 3.5 3.4-5.0 gm/dl Globulin 2.7 2.5-4.0 gm/dl Albumin/Globulin Ratio 1.3 0.9-2
[2016-08-16] MEDS: ONDANSETRON INJ 2 MG/ML 2 ML VIAL IV PRN (18:39)
[2016-08-16 22:59] VITALS: BP 134/67; PULSE 53; TEMP 36.6; O2SAT 98
[2016-08-17] MEDS: HYDROmorphone INJ 1 MG/ML SYR IV PRN ×2 (00:07→05:31)
[2016-08-17] MEDS: LORAZEPAM 0.5 MG TAB PO PRN ×3 (00:37→23:16)
[2016-08-17 01:10] VITALS: BP 150/93; PULSE 62; TEMP 36.6; O2SAT 100
[2016-08-17] MEDS: OXYCODONE/ACETAMINOPHEN 5-325 TAB PO PRN ×2 (02:00→09:20)
[2016-08-17 04:01] VITALS: BP 117/69; PULSE 45
[2016-08-17] MEDS: LACTATED RINGER'S 1000ML 1,000 ML IV SCH ×3 (05:30→21:38)
[2016-08-17 07:11] VITALS: BP 115/72; PULSE 48; TEMP 36.5; O2SAT 96
[2016-08-17 08:22] LABS: HEMATOCRIT 37.6 % (42-52); MEAN CELL VOLUME 89.7 fL (80-100); MEAN CORPUSCULAR HEMOGLOBIN 31.3 pg (25-34); MEAN CORPUSCULAR HGB CONC 34.8 g/dl (32-36); MEAN PLATELET VOLUME 10.1 fL (7.4-10.4); PLATELET COUNT 180 K/uL (130-400); RED BLOOD COUNT 4.19 M/uL (4.7-6.1); WHITE BLOOD COUNT 7.26 K/uL (4.8-10.8)
[2016-08-17] MEDS: FLUOXETINE HCL 20 MG CAP PO SCH (08:40)
[2016-08-17 08:49] LABS: BUN/CREATININE RATIO 10.7 (10-20); CALCIUM 8.7 mg/dl (8.5-10.1); CREATININE 0.83 mg/dl (0.60-1.40); POTASSIUM 3.7 mmol/L (3.5-5.1)
[2016-08-17 08:50] LABS: ALB/GLOB RATIO 1.3 (0.9-2)
[2016-08-17] MEDS ORDERED: OXYCODONE HCL IR 5 MG TAB (IMMEDIATE RELEASE) PO PRN (09:45)
--- NOTE | 2016-08-17 11:00 | Progress Note ---
Internal Med Progress Note Date of Service: Aug 17, 2016. Provider Documentation: SUBJECTIVE: The patient was seem and examined Still complains of pain in lower quadrants Has had a fall last night Not sure if the hurt his head Not any better than at home OBJECTIVE: Vital Signs-as noted below Exam: General-minimal distress at rest Eyes-normal ENT-normal Neck-supple Lungs-clear to ausucltate bilaterally Heart-regular,no murmur Abdomen-benign,tender RLQ with some guarding ,bowel sound present Extremities-no edema Neuro-AAOx3 Lab data as noted below. ASSESSMENT & PLAN: ABDOMINAL PAIN ,Status post appendectomy 08/08/16. Mostly RLQ Weakness with fall after surgery CT abd small amount of Blood but no abscess Pt is afebrile and WCC is not elevated Appreciate Surgery input Conservative management with IVF,Pain and symptomatic medications Surgery Signed off Still has the pain-may last up to 3-4 weeks following surgery Pain therapy consulted Recurrent falls No associated symptoms May be secondary to use of Narcotics Pain therapy consulted for recommendation Dilaudid discontinued Elevated Liver Enzymes Likely due to medications No Upper Q pain Will monitor If better by tomorrow ,will discharge A little better today May be contributed by Tylenol in Percocet will d/c Percocet and try Oxy zir VTE PROPHYLAXIS Relatively low risk for VTE. No anticoagulants due to possible pelvic hemorrhage. SCD's. Increase ambulation DISPOSITION Observation status on Med-Surg Unit. Expected discharge to home. Family Medicine follow-up with Dr. Aguilar. Likely home this afternoon Vital Signs: Date Time Temp Pulse Resp B/P Pulse Ox O2 Delivery O2 Flow Rate FiO2 08/17/16 07:38 Room Air 08/17/16 07:11 36.5 48 16 115/72 96 Room Air 08/17/16 04:01 45 117/69 08/17/16 01:10 36.6 62 18 150/93 100 Room Air 08/17/16 00:05 Room Air 08/16/16 22:59 36.6 53 16 134/67 98 Room Air 08/16/16 15:36 36.6 55 18 114/53 96 Room Air 08/16/16 12:15 Room Air Lab Results: Results Past 24 Hours Test 08/17/16 07:45 Range/Units White Blood Count 7.26 4.8-10.8 K/uL Red Blood Count 4.19 4.7-6.1 M/uL Hemoglobin 13.1 14.0-18.0 g/dL Hematocrit 37.6 42-52 % Mean Corpuscular Volume 89.7 80-100 fL Mean Corpuscular Hemoglobin 31.3 25-34 pg Mean Corpuscular Hemoglobin Concent 34.8 32-36 g/dl RDW Standard Deviation 44.6 36.4-46.3 fL RDW Coefficient of Variation 13.6 11.5-14.5 % Platelet Count 180 130-400 K/uL Mean Platelet Volume 10.1 7.4-10.4 fL Sodium Level 141 136-145 mmol/L Potassium Level 3.7 3.5-5.1 mmol/L Chloride Level 106 98-107 mmol/L Carbon Dioxide Level 29 21-32 mmol/L Anion Gap 6.0 3-11 mmol/L Blood Urea Nitrogen 9 7-18 mg/dl Creatinine 0.83 0.60-1.40 mg/dl Est Creatinine Clear Calc Drug Dose 159.7 ml/min Estimated GFR () 145.8 Estimated GFR (Non- 125.8 BUN/Creatinine Ratio 10.7 10-20 Random Glucose 80 70-99 mg/dl Calcium Level 8.7 8.5-10.1 mg/dl Total Bilirubin 0.5 0.2-1 mg/dl Aspartate Amino Transf (AST/SGOT) 70 15-37 U/L Alanine Aminotransferase (ALT/SGPT) 145 12-78 U/L Alkaline Phosphatase 129 45-117 U/L Total Protein 6.2 6.4-8.2 gm/dl Albumin 3.5 3.4-5.0 gm/dl Globulin 2.7 2.5-4.0 gm/dl Albumin/Globulin Ratio 1.3 0.9-2
[2016-08-17] MEDS ORDERED: HYDROCODONE/ACETAMOPHEN 5/325MG TAB PO PRN (11:30)
--- NOTE | 2016-08-17 11:32 | Pain Management Consultation ---
Pain Management Consultation Date of Consultation Aug 17, 2016. Reason for Consultation postop appy pain RLQ History 21yoM in postop phase s/p appy with continued pain RLQ radiating to RUQ at times. Fell recently on ice with exacerbation of pain. Pain is sharp cramping aching rated currently at 7/10. Not worsened with eating/bowel movement/ urination. Pt slightly worse with movement, deep palpation. No fever/chills/ drainage/erythema surrounding port sites. No other constitutional complaints. Past Medical/Surgical History (1) CHI (closed head injury) (2) Work related injury (3) Concussion (4) Non-cardiac chest pain (5) Left sided chest pain (6) Sinusitis (7) Neck pain (8) Headache (9) Upper respiratory infection (10) Pneumonia (11) Right lower quadrant abdominal pain (12) Abdominal pain (13) Depression (14) Lower abdominal pain (15) Migraine headache (16) Post-operative hemorrhage (17) History of reconstruction of anterior cruciate ligament tear (18) History of rectal sphincterotomy (19) Status post tonsillectomy (20) Status post appendectomy Social / Work History Alcohol Use: occasionally Marital Status: single Occupation: employed, student Allergies Coded Allergies: Ampicillin (Verified Allergy, Intermediate, HIVES, 08/13/16) Cefuroxime (Verified Allergy, Mild, HIVES, 08/13/16) Cephalosporins (Verified Allergy, Unknown, 08/13/16) Clindamycin (Verified Allergy, Unknown, 08/13/16) Penicillins (Verified Allergy, Unknown, 08/13/16) Medications Current Inpatient Medications Medications (Trade) Dose Ordered Sig/Sel[place] Route Start Time Stop Time Status Last Admin Dose Admin Ioversol (Optiray 320) 125 ml UD PRN IV 08/14/16 18:45 08/18/16 18:44 Fluoxetine HCl (Prozac Cap) 20 mg DAILY PO 08/15/16 09:00 09/14/16 08:59 08/17/16 08:40 20 MG Miscellaneous 1 ea 1 ea PRN PRN N/A 08/15/16 00:30 08/15/17 00:29 08/17/16 05:31 1 EA Lactated Ringer's (Lr 1000ml) 1,000 ml @ 125 mls/hr Q8H IV 08/15/16 05:45 09/14/16 05:44 08/17/16 05:30 125 MLS/HR Diphenhydramine HCl (Benadryl Cap) 25 mg Q8H PRN PO 08/15/16 09:45 09/14/16 09:44 Ondansetron HCl (Zofran Inj) 4 mg Q6H PRN IV 08/15/16 11:45 09/14/16 11:44 08/16/16 18:39 4 MG Lorazepam (Ativan Tab) 0.5 mg 3XDQ4 PRN PO 08/15/16 21:45 09/14/16 21:44 08/17/16 00:37 0.5 MG Al Hydroxide/Mg Hydroxide (Maalox Susp) 30 ml Q6H PRN PO 08/16/16 13:15 09/15/16 13:14 Oxycodone HCl (Roxicodone Immediate Rel Tab) 5 mg Q6H PRN PO 08/17/16 09:45 08/31/16 09:44 08/17/16 11:09 5 MG Review of Systems 10pt ROS otherwise negative from HPI Physical Exam Height & Weight: Height 5 feet, 10.00 inches. Weight 91.000 (Kilograms) 200 (Pounds) Last Vital Signs Documentation Date Time Temp Pulse Resp B/P Pulse Ox O2 Delivery O2 Flow Rate FiO2 08/17/16 07:38 Room Air 08/17/16 07:11 36.5 48 16 115/72 96 Exam: AAO x3 in NAD distress playing with phone on entrance to room. Once I entered and explained who I was, pt demeanor changed and was tearful on exam though seemed ok a minute prior. PERRL CV RRR lung no audible wheezing Abd: soft no appreciable masses. 3 distinct port sites well healing w/o erythema/drainage. No myoneural trigger points noted. +Audible bowel sounds. Pt with mild-mod tenderness with deep palpation. NT over genitofemoral/ ilioinguinal nerves PELAYO with grossly 5/5 strength gait not observed CN grossly intact Laboratory / Imaging Results Laboratory Results (Last CBC): 08/17/16 07:45 Imaging: Patient: BANDAR ALEXANDER Address1: [address] [place] [address] Rec: [id number] Address2: Acct ID: [id number] [place] Zip: [place] [address] Date: 1995 Sex: M Room/Bed: Ref Phy: Harsh Aguilar M.D. SC: MYRNA Dawn Phy: Report #: [id number] [facility] Phy: Harsh Aguilar M.D. Test: APIV Admit Phy: Wholesale Manager: CHRIS Interpreting Phy: Alex Wilks MD Diagnosis: PAIN - WEAKNESS - FALL Ordering Phy: Trung Grant MD Service Date: 08/14/16 Admit Date: 08/14/16 MNE: [id number] CONF: DICTATED BY: Alex Wilks M.D.]] CC: Trung Grant MD Rozick, Mark S., M.D. Endcc: [~ rep ct add3]] ABDOMEN AND PELVIS CT WITH IV CONTRAST CT DOSE: 551.34 mGy.cm HISTORY: pelvic hemorrhage, post appy TECHNIQUE: Multiaxial CT images of the abdomen and pelvis were performed following the use of intravenous contrast. COMPARISON STUDY: Abdomen and pelvis CT 08/13/2016. FINDINGS: Lower chest: The heart is normal in size and configuration, without pericardial effusion. The lung bases and pleural spaces are clear. Liver: Stable 8 mm hypodense lesion within the right hepatic dome. This is too small to characterize. There is no intrahepatic biliary ductal dilatation. The hepatic veins and portal veins are patent. Gallbladder: Unremarkable. Spleen: Borderline enlarged measuring 12 cm Pancreas: Unremarkable. Adrenal glands: Unremarkable. Kidneys: There is symmetric renal cortical enhancement. The kidneys are normal in size without hydronephrosis. Bowel: There are no transition zones indicate bowel obstruction. There are postsurgical changes of a recent appendectomy. Minimal inflammatory change at the cecal base remains unchanged. This favors postoperative change. Peritoneum: There is no free intraperitoneal air. There are postsurgical changes present within the abdominal wall. There is a small amount of hyperdense fluid within the pelvis, consistent with hemorrhage. There is scattered very hyperdense foci within this fluid. Vasculature: The abdominal aorta is normal in course and caliber. Adenopathy: None. Pelvic viscera: The bladder, and pelvic viscera are unremarkable. Skeletal structures: There is bilateral L5 spondylolysis. There is a grade 1 spondylolisthesis of L5 on S1. IMPRESSION: 1. No significant change from the prior study. Recent appendectomy 2. Small amount of hyperdense fluid within the pelvis, consistent with hemorrhage. Within the area of presumed hemorrhage, there are scattered very hyperdense foci. This may represent a small amount of spilled barium. Electronically signed by: Alex Wilks M.D. 08/14/2016 7:49 PM Assessment Postop pain s/p Appy Depression Recommendations Discussed with pt that it takes time to heal/recover s/p appy. I stressed that he was still in the postop phase Will initiate gabapentin 300mg po tid for adjuvant pain tx Consider conversion from paxil to cymbalta/effexor if still painful over next few days to diminish pain burden Will convert from oxycodone to [place] 5.325mg 1-2tab po q4 prn pain. No role for interventional pain tx at this time Please call with any questions. Will sign off [employer] Voice Recognition This chart was completed in part utilizing [employer] Voice Recognition Software. Random word insertions, pronoun errors, and incomplete sentences are an occasional consequence of this system due to software limitations and ambient noise. Any questions or concerns about the content, text or information contained within the body of this dictation should be directly addressed to the provider for clarification.
--- NOTE | 2016-08-17 12:00 | DIAGNOSTIC IMAGING REPORT ---
HEAD CT NONCONTRAST CT DOSE: 614.27 mGy.cm HISTORY: r/o bleed, s/p fall TECHNIQUE: Multiaxial CT images of the head were performed without the use of intravenous contrast. Automated exposure control was utilized for this study. Comparison: Head CT 06/03/2016. Findings: The paranasal sinuses and mastoid air cells are clear. The calvarium and skull base are intact. The ventricles and sulci are within normal limits. There is no mass, hematoma, midline shift, or acute infarct. Impression: No acute intracranial abnormality. Electronically signed by: Alex Wilks M.D. 08/17/2016 11:58 AM Dictated Date/Time: 08/17/2016 11:53 AM
[2016-08-17] MEDS: GABAPENTIN 300 MG CAP PO SCH ×2 (13:16→20:09)
[2016-08-17] MEDS: HYDROCODONE/ACETAMOPHEN 5/325MG TAB PO PRN ×2 (14:27→20:09)
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
[2016-08-17 15:41] VITALS: BP 115/71; PULSE 47; TEMP 36.6; O2SAT 96
[2016-08-17 16:20] LABS: BUN/CREATININE RATIO 12.9 (10-20); CALCIUM 8.6 mg/dl (8.5-10.1); CREATININE 0.87 mg/dl (0.60-1.40)
[2016-08-17 16:22] LABS: ALB/GLOB RATIO 1.3 (0.9-2)
[2016-08-17 23:50] VITALS: BP 118/71; PULSE 44; TEMP 36.6; O2SAT 97
[2016-08-18] MEDS: HYDROCODONE/ACETAMOPHEN 5/325MG TAB PO PRN ×4 (00:20→19:44)
[2016-08-18] MEDS ORDERED: KETOROLAC TROMETHAMINE 30 MG/ML VIAL IV STA (01:45)
[2016-08-18] MEDS: LACTATED RINGER'S 1000ML 1,000 ML IV SCH ×3 (05:47→21:16)
[2016-08-18 07:20] VITALS: BP 108/68; PULSE 37; TEMP 36.5; O2SAT 97
[2016-08-18] MEDS: GABAPENTIN 300 MG CAP PO SCH ×3 (08:46→21:03)
[2016-08-18] MEDS: FLUOXETINE HCL 20 MG CAP PO SCH (08:46)
[2016-08-18] MEDS: ONDANSETRON INJ 2 MG/ML 2 ML VIAL IV PRN ×2 (09:44→21:12)
[2016-08-18 10:17] VITALS: BP 131/80; PULSE 74
[2016-08-18] MEDS: ALUMINUM/MAGNESIUM SUSP 30 ML UDC PO PRN (10:32)
[2016-08-18] MEDS: LORAZEPAM 0.5 MG TAB PO PRN ×2 (11:33→21:16)
[2016-08-18 15:23] VITALS: BP 121/70; PULSE 55; TEMP 36.6; O2SAT 96
--- NOTE | 2016-08-18 15:47 | Progress Note ---
Internal Med Progress Note Date of Service: Aug 18, 2016. Provider Documentation: SUBJECTIVE: The patient was seen and examined Still complains of pain in lower quadrants Has had a fall last night Required more pain medications last night Remains stable this morning OBJECTIVE: Vital Signs-as noted below Exam: General-minimal distress at rest Eyes-normal ENT-normal Neck-supple Lungs-clear to ausucltate bilaterally Heart-regular,no murmur Abdomen-benign,minimally tender RLQ ,bowel sound present Some tenderness RUQ as well Extremities-no edema Neuro-AAOx3 Lab data as noted below. ASSESSMENT & PLAN: ABDOMINAL PAIN ,Status post appendectomy 08/08/16. Mostly RLQ and to some extent RUQ Weakness with fall after surgery CT abd small amount of Blood but no abscess Pt is afebrile and WCC is not elevated Appreciate Surgery input Conservative management with IVF,Pain and symptomatic medications Surgery Signed off Still has the pain-may last up to 3-4 weeks following surgery Pain therapy consulted-appreciate Input US GB and Liver Recurrent falls No associated symptoms May be secondary to use of Narcotics Pain therapy consulted for recommendation Dilaudid discontinued Started on Gabapentin and [place] Elevated Liver Enzymes Likely due to medications No Upper Q pain Will monitor If better by tomorrow ,will discharge A little better today May be contributed by Tylenol in Percocet will d/c Percocet and try Oxy IR Has been put back on [place] and Gabapentin by the pain therapist H/O Depression Appreciate Psychiatry input Prozac dose increased VTE PROPHYLAXIS Relatively low risk for VTE. No anticoagulants due to possible pelvic hemorrhage. SCD's. Increase ambulation DISPOSITION Observation status on Med-Surg Unit-changed to Admit. Expected discharge to home. Family Medicine follow-up with Dr. Aguilar. Awaited Vital Signs: Date Time Temp Pulse Resp B/P Pulse Ox O2 Delivery O2 Flow Rate FiO2 08/18/16 15:23 36.6 55 20 121/70 96 Room Air 08/18/16 10:17 74 131/80 08/18/16 07:52 Room Air 08/18/16 07:20 36.5 37 18 108/68 97 Room Air 08/18/16 00:20 Room Air 08/17/16 23:50 36.6 44 16 118/71 97 Room Air 08/17/16 16:30 Room Air Lab Results: Results Past 24 Hours Test 08/17/16 15:42 Range/Units Sodium Level 142 136-145 mmol/L Potassium Level 4.0 3.5-5.1 mmol/L Chloride Level 106 98-107 mmol/L Carbon Dioxide Level 29 21-32 mmol/L Anion Gap 7.0 3-11 mmol/L Blood Urea Nitrogen 11 7-18 mg/dl Creatinine 0.87 0.60-1.40 mg/dl Est Creatinine Clear Calc Drug Dose 152.4 ml/min Estimated GFR () 143.0 Estimated GFR (Non- 123.4 BUN/Creatinine Ratio 12.9 10-20 Random Glucose 89 70-99 mg/dl Calcium Level 8.6 8.5-10.1 mg/dl Total Bilirubin 0.2 0.2-1 mg/dl Aspartate Amino Transf (AST/SGOT) 87 15-37 U/L Alanine Aminotransferase (ALT/SGPT) 163 12-78 U/L Alkaline Phosphatase 126 45-117 U/L Total Protein 6.3 6.4-8.2 gm/dl Albumin 3.6 3.4-5.0 gm/dl Globulin 2.7 2.5-4.0 gm/dl Albumin/Globulin Ratio 1.3 0.9-2
--- NOTE | 2016-08-18 20:15 | DIAGNOSTIC IMAGING REPORT ---
ULTRASOUND RIGHT UPPER QUADRANT ABDOMEN CLINICAL HISTORY: Right upper quadrant abdominal pain. Subcentimeter hepatic lesions by CT. COMPARISON STUDY: Abdominal CT dated 08/14/2016. TECHNIQUE: Real-time, grayscale, and color flow sonography of the right upper quadrant of the abdomen was performed. Images are reviewed in the transverse and longitudinal planes. FINDINGS: Liver: The liver is top normal in size. The liver demonstrates heterogeneous increased echotexture suggesting mild steatosis. There is no intrahepatic biliary ductal dilatation. The main portal vein is patent. Gallbladder: The gallbladder is normal in appearance. No gallstones are identified. There is no gallbladder wall thickening or pericholecystic fluid. A sonographic Hughes's sign is reportedly absent. The common bile duct measures up to 0.4 cm in diameter. Pancreas: Not well visualized due to overlying bowel gas. Right kidney: Survey images of the right kidney demonstrate normal size and echotexture. There is no hydronephrosis. Ascites: None. IMPRESSION: 1. No acute sonographic abnormality is identified. No gallstones are seen. 2. The subcentimeter hepatic hypodensities seen by CT was not visualized by ultrasound. 3. The pancreas was not visualized due to overlying bowel gas. Electronically signed by: Gustavo Velasquez M.D. 08/18/2016 8:13 PM Dictated Date/Time: 08/18/2016 8:10 PM
[2016-08-18 22:50] VITALS: BP 122/74; PULSE 49; TEMP 36.6; O2SAT 96
[2016-08-19] MEDS: HYDROCODONE/ACETAMOPHEN 5/325MG TAB PO PRN ×2 (00:07→05:53)
[2016-08-19] MEDS: LACTATED RINGER'S 1000ML 1,000 ML IV SCH ×2 (05:53→13:19)
[2016-08-19 06:26] LABS: BUN/CREATININE RATIO 12.9 (10-20); CALCIUM 8.5 mg/dl (8.5-10.1); CREATININE 0.78 mg/dl (0.60-1.40); POTASSIUM 3.9 mmol/L (3.5-5.1)
[2016-08-19 06:28] LABS: ALB/GLOB RATIO 1.3 (0.9-2)
[2016-08-19 07:09] VITALS: BP 125/63; PULSE 52; TEMP 36.4; O2SAT 95
[2016-08-19] MEDS: GABAPENTIN 300 MG CAP PO SCH ×2 (08:46→13:27)
[2016-08-19] MEDS: FLUOXETINE HCL 20 MG CAP PO SCH (08:47)
[2016-08-19] MEDS: ONDANSETRON INJ 2 MG/ML 2 ML VIAL IV PRN ×2 (08:52→13:24)
[2016-08-19] MEDS: ALUMINUM/MAGNESIUM SUSP 30 ML UDC PO PRN (09:15)
[2016-08-19] MEDS ORDERED: BISACODYL 10 MG SUPP PR STA (09:23)
[2016-08-19] MEDS ORDERED: MAGNESIUM HYDROXIDE SUSP 30 ML UDC PO ONE (09:30)
[2016-08-19] MEDS ORDERED: OXYCODONE HCL IR 5 MG TAB (IMMEDIATE RELEASE) PO PRN (10:45)
[2016-08-19 15:09] VITALS: BP 138/72; PULSE 66; TEMP 36.7; O2SAT 95
[2016-08-19] MEDS: LORAZEPAM 0.5 MG TAB PO PRN (16:38)
[2016-08-19] MEDS ORDERED: PANTOprazole SOD 40 MG TAB PO ONE (17:19)
[2016-08-19] MEDS ORDERED: RXC5 PO (18:13)
[2016-08-19] MEDS ORDERED: FLUO20CA36 PO (18:13)
[2016-08-19] MEDS ORDERED: NRN300 PO (18:13)
[2016-08-19] MEDS ORDERED: PRT40 PO (18:13)
--- NOTE | 2016-08-19 18:18 | Discharge Instructions ---
Discharge Instructions Date of Service Aug 19, 2016. Admission Reason for Admission: Abdominal Pain Discharge Discharge Diagnosis / Problem: Post-op pain,s/p Apendectomy,Anxiety/depression Discharge Goals Goal(s): Prevent Disease Progression Activity Recommendations Activity Limitations: resume your previous activity (Take it easy with Pain medications) . Instructions / Follow-Up Instructions / Follow-Up Will call with appointment with Dr Aguilar.Please keep appointment with your Psychiatrist Current Hospital Diet Patient's current hospital diet: Regular Diet Discharge Diet Recommended Diet: Regular Diet Pending Studies Studies pending at discharge: no Medical Emergencies . Who to Call and When: Medical Emergencies: If at any time you feel your situation is an emergency, please call 911 immediately. . Non-Emergent Contact Non-Emergency issues call your: Primary Care Provider . Past History Medical & Surgical History: (1) Work related injury (2) Depression (3) Right lower quadrant abdominal pain (4) Post-operative hemorrhage (5) Lower abdominal pain (6) Status post appendectomy (7) History of reconstruction of anterior cruciate ligament tear . "Provider Documentation" section prepared by Man Benitez. VTE Core Measure Inpt VTE Proph given/why not?: SCD's
[2016-08-19 18:21] VITALS: BP 138/72; PULSE 66; TEMP 36.7; O2SAT 95
--- NOTE | 2016-08-19 18:41 | Progress Note ---
Internal Med Progress Note Date of Service: Aug 19, 2016. Provider Documentation: SUBJECTIVE: The patient was seen and examined Still complains of pain in lower quadrants Remains stable Pain is not totally controlled Seen and discussed the issues in presence of the mother Wanted to go home -did not want to stay another night in the hospital OBJECTIVE: Vital Signs-as noted below Exam: General-minimal distress at rest Eyes-normal ENT-normal Neck-supple Lungs-clear to ausucltate bilaterally Heart-regular,no murmur Abdomen-benign,minimally tender RLQ ,bowel sound present Some tenderness RUQ as well Extremities-no edema Neuro-AAOx3 Lab data as noted below. ASSESSMENT & PLAN: ABDOMINAL PAIN ,Status post appendectomy 08/08/16. Mostly RLQ and to some extent RUQ Weakness with fall after surgery CT abd small amount of Blood but no abscess Pt is afebrile and WCC is not elevated Appreciate Surgery input Conservative management with IVF,Pain and symptomatic medications Surgery Signed off Still has the pain-may last up to 3-4 weeks following surgery Pain therapy consulted-appreciate Input US GB and Liver -negative Will try Protonix Recurrent falls No associated symptoms May be secondary to use of Narcotics Pain therapy consulted for recommendation Dilaudid discontinued Started on Gabapentin and [place] Elevated Liver Enzymes Likely due to medications No Upper Q pain Will monitor If better by tomorrow ,will discharge A little better today May be contributed by Tylenol in Percocet will d/c Percocet and try Oxy IR Has been put back on [place] and Gabapentin by the pain therapist Oxycodone is prescribed instead of [place] to take away the Tylenol part in it H/O Depression Appreciate Psychiatry input Prozac dose increased Talked to psychiatrist -no suicidal and or Homicidal ideas,can take care of his own discission Does not require any in patient care Can be discharged with OP psychiatry follow up Discussed with the mom VTE PROPHYLAXIS Relatively low risk for VTE. No anticoagulants due to possible pelvic hemorrhage. SCD's. Increase ambulation DISPOSITION Observation status on Med-Surg Unit-changed to Admit. Expected discharge to home. Family Medicine follow-up with Dr. Aguilar. Awaited Has had a long discussion with the patient again Did not want to stay here any longer Patient discharged home in stable mental and physical condition Discussed with the mom Vital Signs: Date Time Temp Pulse Resp B/P Pulse Ox O2 Delivery O2 Flow Rate FiO2 08/19/16 18:21 36.7 66 18 95 Room Air 08/19/16 15:09 36.7 66 18 138/72 95 Room Air 08/19/16 07:35 Room Air 08/19/16 07:09 36.4 52 18 125/63 95 Room Air 08/18/16 23:45 Room Air 08/18/16 22:50 36.6 49 16 122/74 96 Room Air Lab Results: Results Past 24 Hours Test 08/19/16 05:37 Range/Units Sodium Level 144 136-145 mmol/L Potassium Level 3.9 3.5-5.1 mmol/L Chloride Level 109 98-107 mmol/L Carbon Dioxide Level 29 21-32 mmol/L Anion Gap 6.0 3-11 mmol/L Blood Urea Nitrogen 10 7-18 mg/dl Creatinine 0.78 0.60-1.40 mg/dl Est Creatinine Clear Calc Drug Dose 169.9 ml/min Estimated GFR () 149.6 Estimated GFR (Non- 129.0 BUN/Creatinine Ratio 12.9 10-20 Random Glucose 77 70-99 mg/dl Calcium Level 8.5 8.5-10.1 mg/dl Total Bilirubin 0.5 0.2-1 mg/dl Aspartate Amino Transf (AST/SGOT) 83 15-37 U/L Alanine Aminotransferase (ALT/SGPT) 197 12-78 U/L Alkaline Phosphatase 98 45-117 U/L Total Protein 6.3 6.4-8.2 gm/dl Albumin 3.6 3.4-5.0 gm/dl Globulin 2.7 2.5-4.0 gm/dl Albumin/Globulin Ratio 1.3 0.9-2
--- NOTE | 2016-08-20 08:50 | Discharge Summary ---
Discharge Summary Date of Service Aug 20, 2016. Discharge Summary Admission Date: Aug 17, 2016 at 12:45 Discharge Date: Aug 19, 2016 Discharge Disposition: Home Principal Diagnosis: Post-op pain,s/p Apendectomy,Anxiety/depression Secondary Diagnoses/Problems: Please see H&P and Progress note Consultations: Surgery and Psychiatry Medication Reconciliation New Medications: Fluoxetine HCl (Fluoxetine HCl) 20 Mg Cap 40 MG PO QAM for 30 Days, #60 CAP Gabapentin (Gabapentin) 300 Mg Cap 300 MG PO TID for 10 Days, #30 CAP Oxycodone HCl (Oxycodone HCl) 5 Mg Tab 5 MG PO Q4H PRN for Pain for 7 Days, #20 TAB Pantoprazole (Pantoprazole Sodium) 40 Mg Tab 40 MG PO QAM for 30 Days, #30 TAB Continued Medications: Lorazepam (Lorazepam) 0.5 Mg Tab 0.5 MG PO DAILY PRN for Anxiety Discontinued Medications: Fluoxetine HCl (Fluoxetine HCl) 20 Mg Cap 20 MG PO DAILY Oxycodone/Acetaminophen 5MG/325MG (Oxycodone/Acetaminophen 5MG/325MG) 1 Tab Tab 1-2 TABS PO Q4H PRN for Pain Admission Information HPI (per Admitting provider): 21 YO male followed by Dr. Aguilar. He generally enjoys good health. Presented to ED 08/08/[address] consistent with acute appendicitis. Appendectomy performed by Dr. María Elena Roberts on 08/08/16. Postop course complicated by urinary retention requiring insertion of [place] catheter. Discharged to home 08/11/16. Fell after slipping on ice or snow on 08/12/16. Seen in ED 08/13/16 for evaluation of lower abdominal pain and gross hematuria. He was afebrile. WBC 14,160, Hgb 15.4. UA negative. CT abdomen and pelvis: small amount of hyperdense fluid within pelvis consistent with hemorrhage. Case was discussed with General Surgery. Patient was discharged to home with arrangements for follow-up. Returned to ED today due to persistent abdominal pain. Pain located primarily in RLQ and seems to radiate toward RUQ. Severity rated as high as 9/10. Tried oxycodone / acetaminophen at home without significant benefit. Noted low grade temp, chills, and sweats. No drainage from surgical incisions. No associated nausea, vomiting, diarrhea, hematochezia. No further urinary symptoms. Past Medical/Surgical History Medical Problems: (1) Depression Status: Chronic (2) Migraine headache Status: Chronic Surgical Problems: (1) History of reconstruction of anterior cruciate ligament tear Status: Chronic (2) History of rectal sphincterotomy Status: Chronic (3) Status post appendectomy Status: Chronic (4) Status post tonsillectomy Status: Chronic . Family History Diabetes mellitus Heart disease Hypertension Social History Smoking Status: Current Every Day Smoker Alcohol Use: occasionally Drug Use: none Marital Status: single Occupational Status: employed, student Immunizations History of Influenza Vaccine: Yes History of Tetanus Vaccine?: Yes History of Pneumococcal: No History of Hepatitis B Vaccine: Yes Multi-Drug Resistant Organisms History of MDRO: No Allergies Coded Allergies: Ampicillin (Verified Allergy, Intermediate, HIVES, 08/13/16) Cefuroxime (Verified Allergy, Mild, HIVES, 08/13/16) Cephalosporins (Verified Allergy, Unknown, 08/13/16) Clindamycin (Verified Allergy, Unknown, 08/13/16) Penicillins (Verified Allergy, Unknown, 08/13/16) Home Medications Scheduled Fluoxetine HCl (Fluoxetine HCl), 20 MG PO DAILY Scheduled PRN Lorazepam (Lorazepam), 0.5 MG PO DAILY PRN for Anxiety Oxycodone/Acetaminophen 5MG/325MG (Oxycodone/Acetaminophen 5MG/325MG), 1-2 TABS PO Q4H PRN for Pain Review of Systems As noted above in HPI. . Physical Exam Vital Signs Date Time Temp Pulse Resp B/P Pulse Ox O2 Delivery O2 Flow Rate FiO2 08/14/16 23:16 51 20 128/73 97 Room Air 08/14/16 21:45 56 16 121/73 94 Room Air 08/14/16 20:12 50 16 125/71 98 Room Air 08/14/16 19:13 51 08/14/16 18:37 50 16 131/82 97 Room Air 08/14/16 16:39 37.0 73 18 123/75 97 Room Air General Appearance: WD/WN, no apparent distress Head: normocephalic, atraumatic Eyes: normal inspection, PERRL, EOMI, sclerae normal Respiratory/Chest: lungs clear, no respiratory distress Cardiovascular: regular rate, rhythm, no edema, no gallop, no JVD, no murmur Abdomen/GI: normal bowel sounds, soft, no organomegaly, no pulsatile mass, + pertinent finding (mild RLQ tenderness without rebound or guarding; surgical incisions without erythema or drainage) Extremities/Musculoskelatal: normal inspection, no calf tenderness, no pedal edema Neurologic/Psych: alert, oriented x 3 Skin: warm/dry Diagnostics Laboratory Results Results Past 24 Hours Test 08/14/16 18:34 08/14/16 18:35 Range/Units White Blood Count 13.06 4.8-10.8 K/uL Red Blood Count 4.88 4.7-6.1 M/uL Hemoglobin 15.3 14.0-18.0 g/dL Hematocrit 42.9 42-52 % Mean Corpuscular Volume 87.9 80-100 fL Mean Corpuscular Hemoglobin 31.4 25-34 pg Mean Corpuscular Hemoglobin Concent 35.7 32-36 g/dl Platelet Count 213 130-400 K/uL Mean Platelet Volume 9.6 7.4-10.4 fL Neutrophils (%) (Auto) 63.3 % Lymphocytes (%) (Auto) 20.9 % Monocytes (%) (Auto) 7.7 % Eosinophils (%) (Auto) 7.3 % Basophils (%) (Auto) 0.6 % Neutrophils # (Auto) 8.26 1.4-6.5 K/uL Lymphocytes # (Auto) 2.73 1.2-3.4 K/uL Monocytes # (Auto) 1.01 0.11-0.59 K/uL Eosinophils # (Auto) 0.95 0-0.5 K/uL Basophils # (Auto) 0.08 0-0.2 K/uL RDW Standard Deviation 42.2 36.4-46.3 fL RDW Coefficient of Variation 13.3 11.5-14.5 % Immature Granulocyte % (Auto) 0.2 % Immature Granulocyte # (Auto) 0.03 0.00-0.02 K/uL Sodium Level 142 136-145 mmol/L Potassium Level 4.1 3.5-5.1 mmol/L Chloride Level 107 98-107 mmol/L Carbon Dioxide Level 28 21-32 mmol/L Anion Gap 7.0 3-11 mmol/L Blood Urea Nitrogen 9 7-18 mg/dl Creatinine 0.92 0.60-1.40 mg/dl Est Creatinine Clear Calc Drug Dose 144.1 ml/min Estimated GFR () 137.3 Estimated GFR (Non- 118.5 BUN/Creatinine Ratio 10.1 10-20 Random Glucose 80 70-99 mg/dl Calcium Level 9.2 8.5-10.1 mg/dl Total Bilirubin 1.1 0.2-1 mg/dl Direct Bilirubin 0.4 0-0.2 mg/dl Aspartate Amino Transf (AST/SGOT) 65 15-37 U/L Alanine Aminotransferase (ALT/SGPT) 112 12-78 U/L Alkaline Phosphatase 128 45-117 U/L Total Protein 7.4 6.4-8.2 gm/dl Albumin 4.1 3.4-5.0 gm/dl Lipase 63 73-393 U/L Urine Color DK YELLOW Urine Appearance CLOUDY CLEAR Urine pH 8.0 4.5-7.5 Urine Specific [place] 1.032 1.000-1.030 Urine Protein NEG NEG Urine Glucose (UA) NEG NEG Urine Ketones NEG NEG Urine Occult Blood NEG NEG Urine Nitrite NEG NEG Urine Bilirubin NEG NEG Urine Urobilinogen NEG NEG Urine Leukocyte Esterase NEG NEG Urine WBC (Auto) 1-5 0-5 /hpf Urine RBC (Auto) 0-4 0-4 /hpf Urine Hyaline Casts (Auto) 1-5 0-5 /lpf Urine Epithelial Cells (Auto) >30 0-5 /lpf Urine Bacteria (Auto) 1+ NEG Urine Renal Epithelial Cells 0-5 /lpf Urine Mucus PRESENT NONE PRSENT Microbiology Results 08/14/16 Urine Culture, Received Pending Diagnostic Radiology ABDOMEN AND PELVIS CT WITH IV CONTRAST COMPARISON STUDY: Abdomen and pelvis CT 08/13/2016. FINDINGS: Lower chest: The heart is normal in size and configuration, without pericardial effusion. The lung bases and pleural spaces are clear. Liver: Stable 8 mm hypodense lesion within the right hepatic dome. This is too small to characterize. There is no intrahepatic biliary ductal dilatation. The hepatic veins and portal veins are patent. Gallbladder: Unremarkable. Spleen: Borderline enlarged measuring 12 cm Pancreas: Unremarkable. Adrenal glands: Unremarkable. Kidneys: There is symmetric renal cortical enhancement. The kidneys are normal in size without hydronephrosis. Bowel: There are no transition zones indicate bowel obstruction. There are postsurgical changes of a recent appendectomy. Minimal inflammatory change at the cecal base remains unchanged. This favors postoperative change. Peritoneum: There is no free intraperitoneal air. There are postsurgical changes present within the abdominal wall. There is a small amount of hyperdense fluid within the pelvis, consistent with hemorrhage. There is scattered very hyperdense foci within this fluid. Vasculature: The abdominal aorta is normal in course and caliber. Adenopathy: None. Pelvic viscera: The bladder, and pelvic viscera are unremarkable. Skeletal structures: There is bilateral L5 spondylolysis. There is a grade 1 spondylolisthesis of L5 on S1. IMPRESSION: 1. No significant change from the prior study. Recent appendectomy 2. Small amount of hyperdense fluid within the pelvis, consistent with hemorrhage. Within the area of presumed hemorrhage, there are scattered very hyperdense foci. This may represent a small amount of spilled barium. Electronically signed by: Alex Wilks M.D. 08/14/2016 7:49 PM . Impression Assessment and Plan ABDOMINAL PAIN / ABNORMAL CT PELVIS Status post appendectomy 08/08/16. Postoperative RLQ pain. CT findings as noted above. Unclear whether symptoms and CT abnormalities due to appendectomy or subsequent fall. Patient reports fever, chills, and sweats at home. Afebrile in ED. WBC elevated @ 13,060 (but improved since yesterday). No apparent wound infection or abscess per CT. Therefore, will not order antibiotics at this time. H/H stable. ED physician discussed case with General Surgery; they recommended observation in the hospital overnight with reassessment in the morning. VTE PROPHYLAXIS Relatively low risk for VTE. No anticoagulants due to possible pelvic hemorrhage. SCD's. Ambulate. DISPOSITION Observation status on Med-Surg Unit. Expected discharge to home. Family Medicine follow-up with Dr. Aguilar. . VTE Prophylaxis VTE Risk Assessment Done? Y/N: Yes Risk Level: Low Given or contraindicated: SCD's <Electronically signed by Trung Jackson M.D.> . Physical Exam (per Admitting): General Appearance: WD/WN, no apparent distress Head: normocephalic, atraumatic Eyes: normal inspection, PERRL, EOMI, sclerae normal Respiratory/Chest: lungs clear, no respiratory distress Cardiovascular: regular rate, rhythm, no edema, no gallop, no JVD, no murmur Abdomen/GI: normal bowel sounds, soft, no organomegaly, no pulsatile mass, + pertinent finding (mild RLQ tenderness without rebound or guarding; surgical incisions without erythema or drainage) Extremities/Musculoskelatal: normal inspection, no calf tenderness, no pedal edema Neurologic/Psych: alert, oriented x 3 Skin: warm/dry Hospital Course ABDOMINAL PAIN ,Status post appendectomy 08/08/16. Mostly RLQ and to some extent RUQ Weakness with fall after surgery CT abd small amount of Blood but no abscess Pt is afebrile and WCC is not elevated Appreciate Surgery input Conservative management with IVF,Pain and symptomatic medications Surgery Signed off Still has the pain-may last up to 3-4 weeks following surgery Pain therapy consulted-appreciate Input US GB and Liver -negative Will try Protonix Recurrent falls No associated symptoms May be secondary to use of Narcotics Pain therapy consulted for recommendation Dilaudid discontinued Started on Gabapentin and [place] Elevated Liver Enzymes Likely due to medications No Upper Q pain Will monitor If better by tomorrow ,will discharge A little better today May be contributed by Tylenol in Percocet will d/c Percocet and try Oxy IR Has been put back on [place] and Gabapentin by the pain therapist Oxycodone is prescribed instead of [place] to take away the Tylenol part in it H/O Depression Appreciate Psychiatry input Prozac dose increased Talked to psychiatrist -no suicidal and or Homicidal ideas,can take care of his own discission Does not require any in patient care Can be discharged with OP psychiatry follow up Discussed with the mom VTE PROPHYLAXIS Relatively low risk for VTE. No anticoagulants due to possible pelvic hemorrhage. SCD's. Increase ambulation DISPOSITION Observation status on Med-Surg Unit-changed to Admit. Expected discharge to home. Family Medicine follow-up with Dr. Aguilar. Awaited Has had a long discussion with the patient again Did not want to stay here any longer Patient discharged home in stable mental and physical condition Discussed with the mom Total time spent on discharge = 35 minutes This includes examination of the patient, discharge planning, medication reconciliation, and communication with other providers. Discharge Instructions Date of Service Aug 19, 2016. Admission Reason for Admission: Abdominal Pain Discharge Discharge Diagnosis / Problem: Post-op pain,s/p Apendectomy,Anxiety/depression Discharge Goals Goal(s): Prevent Disease Progression Activity Recommendations Activity Limitations: resume your previous activity (Take it easy with Pain medications) . Instructions / Follow-Up Instructions / Follow-Up Will call with appointment with Dr Aguilar.Please keep appointment with your Psychiatrist Current Hospital Diet Patient's current hospital diet: Regular Diet Discharge Diet Recommended Diet: Regular Diet Pending Studies Studies pending at discharge: no Medical Emergencies . Who to Call and When: Medical Emergencies: If at any time you feel your situation is an emergency, please call 911 immediately. . Non-Emergent Contact Non-Emergency issues call your: Primary Care Provider . Past History Medical & Surgical History: (1) Work related injury (2) Depression (3) Right lower quadrant abdominal pain (4) Post-operative hemorrhage (5) Lower abdominal pain (6) Status post appendectomy (7) History of reconstruction of anterior cruciate ligament tear . "Provider Documentation" section prepared by Man Benitez. VTE Core Measure Inpt VTE Proph given/why not?: SCD's <Electronically signed by Man Benitez M.D.> Signed: 08/19/16 0838 Additional Copies To Harsh Aguilar M.D.
[2016-08-20] MEDS ORDERED: PANTOprazole SOD 40 MG TAB PO SCH (09:00)
== END 2016-08-19 19:10 | disposition home or self-care (01) | DRG 392 ==
LOC: ENRESERVTM → ENRESERVDT → C.EDB 16:20 → C.MSW 23:23 → EDBEDREQSVC 23:52 → C.MSN 08-15 01:30 → OBSVTOIN 08-17 12:45
PROVIDERS: ADMIT Hospitalist; ATTEND Internal Medicine
DX: R10.31 Right lower quadrant pain (principal); F33.1 Major depressive disorder, recurrent, moderate; R93.5 Abnormal findings on diagnostic imaging of other abdominal regions, including retroperitoneum; Z98.890 Other specified postprocedural states; R29.6 Repeated falls; R74.8 Abnormal levels of other serum enzymes; T39.1X5A Adverse effect of 4-Aminophenol derivatives, initial encounter; F17.200 Nicotine dependence, unspecified, uncomplicated; Z79.899 Other long term (current) drug therapy; Z83.3 Family history of diabetes mellitus; Z82.49 Family history of ischemic heart disease and other diseases of the circulatory system; Z81.1 Family history of alcohol abuse and dependence; Z81.8 Family history of other mental and behavioral disorders

== ENCOUNTER 2017-03-04 20:53 | Emergency (ER) | payer BC ==
[~2017-03-04] VITALS: Ht 177.8 cm; Wt 105.8 kg
[~2017-03-04 20:53] MED LIST changes: +NRN300 PO; -OXYC-57 PO; +PRT40 PO; +RXC5 PO
[2017-03-04 20:57] VITALS: TEMP 37.4; Ht 177.8 cm; Wt 105.8 kg
[2017-03-04] MEDS ORDERED: PRZ/40 PO (21:25)
[2017-03-04] MEDS ORDERED: HYDROmorphone INJ 0.5 MG/0.5 ML SYR IV STA ×2 (22:59→23:53)
[2017-03-04 23:12] LABS: BASO % 0.3 %; BASO ABS # 0.03 K/uL (0-0.2); COMPLETE YES; HEMATOCRIT 44.2 % (42-52); IG% 0.4 %; LYMPH % 28.3 %; LYMPH ABS # 2.89 K/uL (1.2-3.4); MEAN CELL VOLUME 87.7 fL (80-100); MEAN CORPUSCULAR HEMOGLOBIN 32.1 pg (25-34); MEAN CORPUSCULAR HGB CONC 36.7 g/dl (32-36); MONO % 10.5 %; NEUT % 58.5 %; PLATELET COUNT 203 K/uL (130-400); RED BLOOD COUNT 5.04 M/uL (4.7-6.1)
[2017-03-04] MEDS ORDERED: OPTIRAY 320 IV PRN (23:15)
[2017-03-04 23:31] LABS: URINE APPEARANCE CLOUDY (CLEAR); URINE BILIRUBIN NEG (NEG); URINE COLOR YELLOW; URINE EPITHELIAL CELL AUTO 0-5 /lpf (0-5); URINE NITRITE NEG (NEG); URINE PH 7.5 (4.5-7.5); URINE SPECIFIC GRAVITY 1.022 (1.000-1.030); UROBILINOGEN NEG (NEG); ZZUR CULT IF INDIC CLEAN CATCH NO
[2017-03-04 23:41] LABS: BUN/CREATININE RATIO 12.1 (10-20); CALCIUM 9.1 mg/dl (8.5-10.1); CREATININE 1.2 mg/dl (0.60-1.40); POTASSIUM 3.7 mmol/L (3.5-5.1)
[2017-03-04 23:42] LABS: MANUAL MICROSCOPIC REQUIRED? NO; REVIEW REQ? NO
[2017-03-05] MEDS ORDERED: HYDROmorphone INJ 0.5 MG/0.5 ML SYR IV STA ×2 (00:46→01:47)
[2017-03-05] MEDS ORDERED: METRONIDAZOLE 250 MG TAB PO STA (01:29)
[2017-03-05] MEDS ORDERED: CIPROFLOXACIN 500 MG TAB PO STA (01:29)
[2017-03-05] MEDS ORDERED: GENTAMICIN INJ 240 MG in DEXTROSE 5% 100ML 100 ML IV STA (01:29)
[2017-03-05] MEDS ORDERED: RALTEGRAVIR POTASSIUM TAB 400 MG TAB PO STA (01:29)
[2017-03-05] MEDS ORDERED: EMTRICITABINE/TENOFOVIR TAB PO STA (01:29)
[2017-03-05] MEDS ORDERED: AZITHROMYCIN 250 MG TAB PO STA (01:29)
[2017-03-05] MEDS ORDERED: PROMETHAZINE HCL 25 MG TAB PO ONE (01:30)
[2017-03-05] MEDS ORDERED: OXYCODONE IR HOME PACK PO ONE (01:30)
[2017-03-05] MEDS ORDERED: PHENERGAN 25MG HOMEPACK PO ONE (01:30)
[2017-03-05] MEDS ORDERED: PROM25TA9 PO (02:00)
[2017-03-05] MEDS ORDERED: OXYC1TAB3 PO (02:00)
[2017-03-05] MEDS ORDERED: RALT400T PO (02:00)
[2017-03-05] MEDS ORDERED: CIPR-255 PO (02:00)
[2017-03-05] MEDS ORDERED: METR-163 PO (02:00)
[2017-03-05] MEDS ORDERED: TRVHP PO (02:00)
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
[2017-03-05 03:31] VITALS: BP 124/74
[2017-03-05 03:33] VITALS: PULSE 99; O2SAT 96
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
== END 2017-03-05 03:39 | disposition home or self-care (01) ==
LOC: C.EDB 20:54 → C.EDA 03-05 03:39
DX: T74.21XA Adult sexual abuse, confirmed, initial encounter (principal); Y07.59 Other non-family member, perpetrator of maltreatment and neglect; K62.89 Other specified diseases of anus and rectum; F32.9 Major depressive disorder, single episode, unspecified; F17.200 Nicotine dependence, unspecified, uncomplicated; Z87.01 Personal history of pneumonia (recurrent); Z90.89 Acquired absence of other organs; Z98.890 Other specified postprocedural states; Z91.81 History of falling; Z83.3 Family history of diabetes mellitus; Z82.49 Family history of ischemic heart disease and other diseases of the circulatory system; Z79.899 Other long term (current) drug therapy; Z71.7 Human immunodeficiency virus [HIV] counseling

== ENCOUNTER 2017-04-14 20:26 | Emergency (ER) | payer BC ==
[~2017-04-14] VITALS: Ht 177.8 cm; Wt 100.7 kg
[~2017-04-14 20:26] MED LIST changes: -ATV5X PO; +CIPR-255 PO; -FLUO20CA36 PO; +METR-163 PO; -NRN300 PO; +OXYC1TAB3 PO; +PROM25TA9 PO; -PRT40 PO; +PRZ/40 PO; +RALT400T PO; -RXC5 PO; +TRVHP PO
[2017-04-14 20:29] VITALS: TEMP 36.8; Ht 177.8 cm; Wt 100.7 kg
[2017-04-14] MEDS ORDERED: PROCHLORPERAZINE 5 MG/ML 2 ML VIAL IV STA (20:52)
[2017-04-14] MEDS ORDERED: KETOROLAC TROMETHAMINE 30 MG/ML VIAL IV STA (20:52)
[2017-04-14] MEDS ORDERED: DiphenhydrAMINE HCL 50 MG/ML VIAL IV STA (20:52)
[2017-04-14] MEDS ORDERED: SODIUM CHLORIDE 0.9% 500ML 500 ML IV STA (20:52)
--- NOTE | 2017-04-14 20:52 | EMERGENCY ROOM VISIT NOTE ---
History First contact with patient: 20:35 Chief Complaint: HEADACHE Stated Complaint: MIGRAIN, NECK PAIN, VISION PROBLEMS History of Present Illness The patient is a 22 year old male who presents to the Emergency Room with complaints of severe migraine headache that started this morning when he woke up. He does have a history of migraines. He says that this feels similar, however they usually do not last this long. He describes it as an allover throbbing sensation. He has also had nausea without vomiting. He has not eaten much today. He denies any recent illnesses such as cough, sinus congestion or fever. He has tried Tylenol, ibuprofen and Imitrex with no relief of his symptoms. He does describe photo and phonophobia. He denies aura. Review of Systems 10 system review performed and negative unless noted in HPI or below Past Medical/Surgical History Medical Problems: (1) Abdominal pain (2) Depression (3) Migraine headache (4) Pneumonia (5) Recurrent falls Surgical Problems: (1) History of reconstruction of anterior cruciate ligament tear (2) History of rectal sphincterotomy (3) Status post appendectomy (4) Status post tonsillectomy Family History Diabetes mellitus Heart disease Hypertension Social History Smoking Status: Current Every Day Smoker Alcohol Use: none Drug Use: none Marital Status: single Housing Status: lives with family Occupation Status: employed, student Current/Historical Medications Scheduled Fluoxetine (Prozac), 40 MG PO DAILY Physical Exam Vital Signs Date Time Temp Pulse Resp B/P (MAP) Pulse Ox O2 Delivery O2 Flow Rate FiO2 04/14/17 23:47 68 16 139/81 97 Room Air 04/14/17 22:46 55 20 128/79 96 Room Air 04/14/17 21:14 52 18 149/79 96 Room Air 04/14/17 20:29 36.8 77 20 148/93 98 Room Air Physical Exam VITALS: Vitals are noted on the nurse's note and reviewed by myself. Vital signs stable. GENERAL: 22-year-old male, in no acute distress, nondiaphoretic, well-developed well-nourished. SKIN: The skin was without rashes, erythema, edema, or bruising. HEAD: Normocephalic atraumatic. EARS: External auditory canals clear, tympanic membranes pearly gomez without erythema or effusion bilaterally. EYES: Pupils equal round and reactive to light and accommodation. Conjunctivae without injection, sclerae without icterus. Extraocular movements intact. MOUTH: Mucous membranes somewhat dry tonsils are not enlarged. Pharynx without erythema or exudate. Uvula midline. Airway patent. Tongue does not deviate. NECK: Supple without nuchal rigidity. No lymphadenopathy. Cervical spine is nontender. No JVD. HEART: Regular rate and rhythm without murmurs gallops or rubs. LUNGS: Clear to auscultation bilaterally without wheezes, rales or rhonchi. No accessory muscle use. MUSCULOSKELETAL: No muscle atrophy, erythema, or edema noted. Full range of motion in all extremities. No tenderness to palpation. Normal gait. Strength 5/5 throughout. NEURO: Patient was alert and oriented to person place and time. Cerebellar function intact. Cranial nerves grossly intact. Normal sensation to touch. No focal neurological deficits. Medical Decision & Procedures Laboratory Results 04/14/17 21:00 Red Blood Count 5.07, Mean Corpuscular Volume 89.3, Mean Corpuscular Hemoglobin 32.3, Mean Corpuscular Hemoglobin Concent 36.2, Mean Platelet Volume 10.3, Neutrophils (%) (Auto) 55.6, Lymphocytes (%) (Auto) 35.4, Monocytes (%) (Auto) 6.6, Eosinophils (%) (Auto) 2.1, Basophils (%) (Auto) 0.2, Neutrophils # (Auto) 4.98, Lymphocytes # (Auto) 3.17, Monocytes # (Auto) 0.59, Eosinophils # (Auto) 0.19, Basophils # (Auto) 0.02 04/14/17 21:00 Test 04/14/17 21:00 White Blood Count 8.96 K/uL (4.8-10.8) Red Blood Count 5.07 M/uL (4.7-6.1) Hemoglobin 16.4 g/dL (14.0-18.0) Hematocrit 45.3 % (42-52) Mean Corpuscular Volume 89.3 fL (80-100) Mean Corpuscular Hemoglobin 32.3 pg (25-34) Mean Corpuscular Hemoglobin Concent 36.2 g/dl (32-36) Platelet Count 173 K/uL (130-400) Mean Platelet Volume 10.3 fL (7.4-10.4) Neutrophils (%) (Auto) 55.6 % Lymphocytes (%) (Auto) 35.4 % Monocytes (%) (Auto) 6.6 % Eosinophils (%) (Auto) 2.1 % Basophils (%) (Auto) 0.2 % Neutrophils # (Auto) 4.98 K/uL (1.4-6.5) Lymphocytes # (Auto) 3.17 K/uL (1.2-3.4) Monocytes # (Auto) 0.59 K/uL (0.11-0.59) Eosinophils # (Auto) 0.19 K/uL (0-0.5) Basophils # (Auto) 0.02 K/uL (0-0.2) RDW Standard Deviation 41.2 fL (36.4-46.3) RDW Coefficient of Variation 12.7 % (11.5-14.5) Immature Granulocyte % (Auto) 0.1 % Immature Granulocyte # (Auto) 0.01 K/uL (0.00-0.02) Anion Gap 12.0 mmol/L (3-11) Est Creatinine Clear Calc Drug Dose 148.2 ml/min Estimated GFR () 134.6 Estimated GFR (Non- 116.1 BUN/Creatinine Ratio 13.3 (10-20) Calcium Level 9.5 mg/dl (8.5-10.1) Medications Administered Medications (Trade) Dose Ordered Sig/Selma Route Start Time Stop Time Status Last Admin Dose Admin Ketorolac Tromethamine (Toradol Inj) 30 mg NOW STAT IV 04/14/17 20:52 04/14/17 20:53 DC 04/14/17 21:13 30 MG Prochlorperazine Edisylate (Compazine Inj) 10 mg NOW STAT IV 04/14/17 20:52 04/14/17 20:53 DC 04/14/17 21:13 10 MG Diphenhydramine HCl (Benadryl Inj) 25 mg NOW STAT IV 04/14/17 20:52 04/14/17 20:53 DC 04/14/17 21:13 25 MG Sodium Chloride 500 ml @ 999 mls/hr Q31M STAT IV 04/14/17 20:52 04/14/17 21:22 DC 04/14/17 21:13 999 MLS/HR Promethazine HCl (Phenergan 25MG Home Pack) 1 homepack UD ONCE PO 11/19/17 22:45 04/14/17 22:46 DC 04/14/17 22:45 1 [facility] ED Course Patient was seen and examined Vital signs including blood pressure were reviewed medications list was verified with patient Labs were obtained, and a saline lock was established The case was discussed with my supervising physician who is in agreement with my plan. The patient was given Toradol 30 mg IV, Compazine 10 mg IV, Benadryl 25 mg IV. He was hydrated with 500 mL of normal saline. Upon reevaluation, the patient was feeling much better. We discussed the results of his workup. He voiced understanding. He was comfortable being discharged home. The patient was given a one pack of tramadol I reviewed discharge instructions the patient. They voiced understanding and had no further questions. Medical Decision Differential includes: Acute intracranial bleed, trauma, meningitis, encephalitis, increased intracranial pressure, mass or mass effect, facial or dental infection, temporal arteritis, CVA, TIA, acute hypertensive emergency, sinusitis, carbon monoxide exposure. This patient is a 22-year-old male that presents emergency department with complaints of a migraine headache lasting longer than usual. Otherwise, the headache was similar to migraines that he had had in the past. The patient's symptoms of throbbing headache, nausea, photophobia and phonophobia all are consistent with the patient's past migraines. On exam, he was uncomfortable. He did not have any signs of meningismus. No recent infections. The patient did appear dehydrated on exam. He was ordered IV fluids, Toradol, Benadryl and Compazine with good pain relief. I did not find imaging necessary. He is afebrile. There is no leukocytosis. I believe he is stable to be discharged home. The patient was given a home pack of tramadol, and instructed to continue new other medications as prescribed. He'll follow-up with his primary care physician, and agrees to return to the emergency department with any new or worsening symptoms This chart was completed in part utilizing [employer] Voice Recognition software. Attempts were made to minimize the grammatical errors, random word insertions, pronoun errors and incomplete sentences. Any formal questions or concerns about the content, text or information contained within the body of this dictation should be directly addressed to the provider for clarification. Blood Pressure Screening Patient's blood pressure: Elevated blood pressure Blood pressure disposition: Elevated BP felt to be situational, Did not require urgent referral Impression Primary Impression: Migraine Departure Information Dispostion Home / Self-Care Condition GOOD Referrals Harsh Aguilar M.D. (PCP) Patient Instructions My [facility] Additional Instructions DO NOT drive, drink alcohol, operate machinery, or perform dangerous activities today. You were given medications in the ER that can affect your ability to safely function or operate a vehicle. Rest today in a quiet, peaceful, dark environment and get a full 8-10 hrs of sleep tonight. Avoid loud noises, smoke/smoking, alcohol, bright lights, stress, or physical exertion today to minimize the chance the headache may return. Continue current medications as prescribed. . Ibuprofen(Motrin, Advil) may be used for fever or pain. Use 600mg every six hours as needed. Take with food. Avoid using more than 2400mg in a 24 hour period. Do not use 2400mg per day for more than three consecutive days without physician direction. Prolonged inappropriate use can lead to stomach upset or ulcers. (AND/OR) Acetaminophen(Tylenol) may be used for fever or pain. Use 1000mg every six hours as needed. Avoid using more than 4000mg in a 24 hour period. Return to the ER for passing out, worsening headache, vision problems, neck stiffness/pain, fevers, vomiting, worsening of your condition, or as needed. Follow up with your primary physician in 2-3 days for a recheck of your current condition.
[2017-04-14] MEDS ORDERED: FLUO40CA8 PO (20:57)
[2017-04-14 21:18] LABS: BASO % 0.2 %; BASO ABS # 0.02 K/uL (0-0.2); COMPLETE YES; EOS % 2.1 %; HEMATOCRIT 45.3 % (42-52); IG% 0.1 %; LYMPH % 35.4 %; LYMPH ABS # 3.17 K/uL (1.2-3.4); MEAN CELL VOLUME 89.3 fL (80-100); MEAN CORPUSCULAR HEMOGLOBIN 32.3 pg (25-34); MEAN CORPUSCULAR HGB CONC 36.2 g/dl (32-36); MEAN PLATELET VOLUME 10.3 fL (7.4-10.4); MONO % 6.6 %; NEUT % 55.6 %; PLATELET COUNT 173 K/uL (130-400); RED BLOOD COUNT 5.07 M/uL (4.7-6.1); WHITE BLOOD COUNT 8.96 K/uL (4.8-10.8)
[2017-04-14 21:38] LABS: BUN/CREATININE RATIO 13.3 (10-20); CALCIUM 9.5 mg/dl (8.5-10.1); CREATININE 0.93 mg/dl (0.60-1.40); POTASSIUM 3.6 mmol/L (3.5-5.1)
[2017-04-14] MEDS ORDERED: PHENERGAN 25MG HOMEPACK PO ONE (22:45)
[2017-04-14 23:47] VITALS: BP 139/81; PULSE 68; O2SAT 97
== END 2017-04-14 23:48 | disposition home or self-care (01) ==
LOC: C.EDB 20:27 → C.EDA 23:48
DX: G43.909 Migraine, unspecified, not intractable, without status migrainosus (principal); F32.9 Major depressive disorder, single episode, unspecified; F17.200 Nicotine dependence, unspecified, uncomplicated; Z90.89 Acquired absence of other organs; Z83.3 Family history of diabetes mellitus; Z82.49 Family history of ischemic heart disease and other diseases of the circulatory system

== ENCOUNTER 2017-09-06 10:56 | Emergency (ER) | payer BC ==
[~2017-09-06] VITALS: Ht 177.8 cm; Wt 113.1 kg
[~2017-09-06 10:56] MED LIST changes: +ACET-1256 PO; +ASPI81TA28 PO; -CIPR-255 PO; -METR-163 PO; -OXYC1TAB3 PO; -PROM25TA9 PO; -RALT400T PO; -TRVHP PO
[2017-09-06 10:59] VITALS: TEMP 36.5; O2SAT 98; Ht 177.8 cm; Wt 113.1 kg
[2017-09-06] MEDS ORDERED: FAMOTIDINE 20 MG TAB PO STA (11:15)
[2017-09-06] MEDS ORDERED: HYDROmorphone INJ 1 MG/ML SYR IV STA ×2 (11:15→12:38)
[2017-09-06] MEDS ORDERED: METOCLOPRAMIDE HCL INJ 5 MG/ML 2 ML VIAL IV STA (11:15)
[2017-09-06] MEDS ORDERED: SUCRALFATE 1 GM TAB PO STA (11:15)
[2017-09-06] MEDS ORDERED: GI COCKTAIL PO STA (11:15)
[2017-09-06] MEDS ORDERED: LIDOCAINE HCL 2% VISC SOLN 20 ML UDC ONE (11:22)
[2017-09-06] MEDS ORDERED: ALUMINUM/MAGNESIUM SUSP 30 ML UDC ONE (11:22)
[2017-09-06 11:28] LABS: BASO % 0.2 %; BASO ABS # 0.02 K/uL (0-0.2); EOS % 2.7 %; EOS ABS # 0.22 K/uL (0-0.5); HEMOGLOBIN 15.2 g/dL (14.0-18.0); IG# 0.02 K/uL (0.00-0.02); LYMPH % 42.7 %; LYMPH ABS # 3.43 K/uL (1.2-3.4); MEAN CORPUSCULAR HEMOGLOBIN 31.5 pg (25-34); MEAN CORPUSCULAR HGB CONC 36.2 g/dl (32-36); MONO % 8.6 %; MONO ABS # 0.69 K/uL (0.11-0.59); NEUT % 45.6 %; NEUT ABS # 3.66 K/uL (1.4-6.5); PLATELET COUNT 169 K/uL (130-400); RED CELL DISTRIBUTION WIDTH CV 12.9 % (11.5-14.5); RED CELL DISTRIBUTION WIDTH SD 41.3 fL (36.4-46.3); WHITE BLOOD COUNT 8.04 K/uL (4.8-10.8)
--- NOTE | 2017-09-06 11:40 | DIAGNOSTIC IMAGING REPORT ---
CHEST ONE VIEW PORTABLE CLINICAL HISTORY: Chest pain. COMPARISON STUDY: Chest CT June 12, 2017. FINDINGS: Lung volumes are normal. No pneumothorax or pleural effusion is noted. There is no consolidation. Borderline cardiomegaly is noted. There is no evidence for pulmonary edema. IMPRESSION: 1. No acute cardiopulmonary findings. 2. Borderline enlargement of the cardiac silhouette. Electronically signed by: Nir Lei M.D. 09/06/2017 11:38 AM Dictated Date/Time: 09/06/2017 11:37 AM
[2017-09-06 11:44] LABS: ALBUMIN 3.8 gm/dl (3.4-5.0); BLOOD UREA NITROGEN 14 mg/dl (7-18); CALCIUM 8.6 mg/dl (8.5-10.1); CARBON DIOXIDE 24 mmol/L (21-32); CREATININE 0.89 mg/dl (0.60-1.40); GLUCOSE 77 mg/dl (70-99); LIPASE 179 U/L (73-393); POTASSIUM 3.8 mmol/L (3.5-5.1); SODIUM 140 mmol/L (136-145)
[2017-09-06 11:50] LABS: ALKALINE PHOSPHATASE 66 U/L (45-117); ALT/SGPT 35 U/L (12-78); AST/SGOT 20 U/L (15-37); CKMB 1.7 ng/ml (0.5-3.6); TOTAL PROTEIN 6.6 gm/dl (6.4-8.2)
--- NOTE | 2017-09-06 12:01 | DIAGNOSTIC IMAGING REPORT ---
(CHEST) THORAX WITHOUT CT DOSE: 654.82 mGy.cm CLINICAL HISTORY: 22 years-old Male with Quick oral prep for CT chest. Acute midsternal chest pain with recent endoscopy TECHNIQUE: Multiaxial CT images of the chest were performed without contrast. A dose lowering technique was utilized adhering to the principles of ALARA. COMPARISON: CT chest 06/12/2017. FINDINGS: No dominant thyroid nodule. Evaluation for adenopathy is limited without the use of IV contrast. Residual thymic tissue of the anterior mediastinum. Heart appears to be of significant limits of normal in size. Thoracic aorta is normal in course and caliber. No pneumomediastinum or pneumothorax identified. No pleural effusion or focal airspace consolidation. Mild dependent subsegmental bibasilar atelectasis. Mild mosaic attenuation of the intersegmental right upper lobe suggests some air trapping. Central airways are patent. Oral contrast is noted throughout the esophagus is also seen within the stomach and duodenum. No acute process of the imaged upper abdomen. Soft tissues are unremarkable. Bones appear intact. IMPRESSION: No acute intrathoracic abnormality identified. Electronically signed by: Cole Frost M.D. 09/06/2017 11:59 AM Dictated Date/Time: 09/06/2017 11:55 AM
--- NOTE | 2017-09-06 12:47 | EMERGENCY ROOM VISIT NOTE ---
History Report prepared by Lanie: Simon Juarez Under the Supervision of: Dr. Sreekanth Qiu M.D. First contact with patient: 11:08 Chief Complaint: CHEST PAIN Stated Complaint: CHEST PAIN Nursing Triage Summary: pt. had ultrasound EGD today, post proceedure time is 2 hours, pt. continues to have chest pain mid sternal radiating lower chest wall left side, pt. was given 2mg versed and 100mcg fentynal for pain an hour ago with no relief, pt. has past diagnosis of anxiety with similar symptoms chest pain 7 it rises to a 9-10 History of Present Illness The patient is a 22 year old male who presents to the Emergency Room with complaints of waxing and waning central chest pain s/p EGD. His pain radiates into his left lower chest. He rates his pain as a 10/10 at worst, and a 7/10 at best. The patient had an EGD today two hours ago. He was given Fentanyl and Versed for his pain. He notes that he has mild abdominal pain at all times, and denies any increased abdominal pain. The patient's mother states that the patient has a history of similar chest pain. The patient states that his current chest pain feels very similar to his previous chest pain, but has some differences as well. He has noticed a correlation with his normal pain and eating occasionally. Source of History: patient Position: chest (central) Symptom Intensity: 7/10 at best, 10/10 at worst Timing: waxes/wanes Associated Symptoms: No abdominal pain (increased) Review of Systems See HPI for pertinent positives & negatives. A total of 10 systems reviewed and were otherwise negative. Past Medical & Surgical Medical Problems: (1) Abdominal pain (2) Depression (3) Migraine headache (4) Pneumonia (5) Recurrent falls Surgical Problems: (1) History of reconstruction of anterior cruciate ligament tear (2) History of rectal sphincterotomy (3) Status post appendectomy (4) Status post tonsillectomy Family History Diabetes mellitus Heart disease Hypertension Social History Smoking Status: Current Every Day Smoker Alcohol Use: none Drug Use: none Marital Status: single Housing Status: lives with family Occupation Status: employed, student Current/Historical Medications Scheduled Aspirin (Aspirin Ec), 81 MG PO DAILY Fluoxetine Hcl (Prozac), 40 MG PO DAILY Scheduled PRN Acetaminophen (Tylenol), 1,000 MG PO Q6H PRN for Pain Allergies Coded Allergies: Ampicillin (Verified Allergy, Intermediate, HIVES, 04/14/17) Cefuroxime (Verified Allergy, Mild, HIVES, 04/14/17) Cephalosporins (Verified Allergy, Unknown, 04/14/17) Clindamycin (Verified Allergy, Unknown, 04/14/17) Penicillins (Verified Allergy, Unknown, 04/14/17) Physical Exam Vital Signs Date Time Temp Pulse Resp B/P (MAP) Pulse Ox O2 Delivery O2 Flow Rate FiO2 09/06/17 13:12 70 19 129/57 95 09/06/17 12:26 69 18 129/57 95 Room Air 09/06/17 11:37 71 20 124/85 96 Room Air 09/06/17 11:03 67 09/06/17 10:59 36.5 71 24 118/84 99 Room Air 09/06/17 10:59 98 Room Air 09/06/17 10:59 98 Room Air Physical Exam GENERAL: Awake, alert, well-appearing, in no acute distress. Hyperventilating. HENT: Normocephalic, atraumatic. Oropharynx unremarkable. EYES: Normal conjunctiva. Sclera non-icteric. NECK: Supple. No nuchal rigidity. FROM. No JVD. RESPIRATORY: Clear to auscultation. CARDIAC: Regular rate, normal rhythm. Extremities warm and well perfused. Pulses equal. ABDOMEN: Soft, non-distended. No tenderness to palpation. No rebound or guarding. No masses. RECTAL: Deferred. MUSCULOSKELETAL: Chest examination reveals no tenderness. The back is symmetrical on inspection without obvious abnormality. There is no CVA tenderness to palpation. No joint edema. LOWER EXTREMITIES: Calves are equal size bilaterally and non-tender. No edema. No discoloration. NEURO: Normal sensorium. No sensory or motor deficits noted. SKIN: No rash or jaundice noted. Medical Decision & Procedures ER Provider Diagnostic Interpretation: Radiology results as stated below per my review and radiologist interpretation: CHEST ONE VIEW PORTABLE FINDINGS: Lung volumes are normal. No pneumothorax or pleural effusion is noted. There is no consolidation. Borderline cardiomegaly is noted. There is no evidence for pulmonary edema. IMPRESSION: 1. No acute cardiopulmonary findings. 2. Borderline enlargement of the cardiac silhouette. Electronically signed by: Nir Lei M.D. 09/06/2017 11:38 AM (CHEST) THORAX WITHOUT FINDINGS: No dominant thyroid nodule. Evaluation for adenopathy is limited without the use of IV contrast. Residual thymic tissue of the anterior mediastinum. Heart appears to be of significant limits of normal in size. Thoracic aorta is normal in course and caliber. No pneumomediastinum or pneumothorax identified. No pleural effusion or focal airspace consolidation. Mild dependent subsegmental bibasilar atelectasis. Mild mosaic attenuation of the intersegmental right upper lobe suggests some air trapping. Central airways are patent. Oral contrast is noted throughout the esophagus is also seen within the stomach and duodenum. No acute process of the imaged upper abdomen. Soft tissues are unremarkable. Bones appear intact. IMPRESSION: No acute intrathoracic abnormality identified. Electronically signed by: Cole Frost M.D. 09/06/2017 11:59 AM Laboratory Results 09/06/17 11:16 Red Blood Count 4.83, Mean Corpuscular Volume 87.0, Mean Corpuscular Hemoglobin 31.5, Mean Corpuscular Hemoglobin Concent 36.2, Mean Platelet Volume 10.0, Neutrophils (%) (Auto) 45.6, Lymphocytes (%) (Auto) 42.7, Monocytes (%) (Auto) 8.6, Eosinophils (%) (Auto) 2.7, Basophils (%) (Auto) 0.2, Neutrophils # (Auto) 3.66, Lymphocytes # (Auto) 3.43, Monocytes # (Auto) 0.69, Eosinophils # (Auto) 0.22, Basophils # (Auto) 0.02 09/06/17 11:16 Test 09/06/17 11:16 White Blood Count 8.04 K/uL (4.8-10.8) Red Blood Count 4.83 M/uL (4.7-6.1) Hemoglobin 15.2 g/dL (14.0-18.0) Hematocrit 42.0 % (42-52) Mean Corpuscular Volume 87.0 fL (80-100) Mean Corpuscular Hemoglobin 31.5 pg (25-34) Mean Corpuscular Hemoglobin Concent 36.2 g/dl (32-36) Platelet Count 169 K/uL (130-400) Mean Platelet Volume 10.0 fL (7.4-10.4) Neutrophils (%) (Auto) 45.6 % Lymphocytes (%) (Auto) 42.7 % Monocytes (%) (Auto) 8.6 % Eosinophils (%) (Auto) 2.7 % Basophils (%) (Auto) 0.2 % Neutrophils # (Auto) 3.66 K/uL (1.4-6.5) Lymphocytes # (Auto) 3.43 K/uL (1.2-3.4) Monocytes # (Auto) 0.69 K/uL (0.11-0.59) Eosinophils # (Auto) 0.22 K/uL (0-0.5) Basophils # (Auto) 0.02 K/uL (0-0.2) RDW Standard Deviation 41.3 fL (36.4-46.3) RDW Coefficient of Variation 12.9 % (11.5-14.5) Immature Granulocyte % (Auto) 0.2 % Immature Granulocyte # (Auto) 0.02 K/uL (0.00-0.02) Anion Gap 5.0 mmol/L (3-11) Est Creatinine Clear Calc Drug Dose 164.0 ml/min Estimated GFR () 140.7 Estimated GFR (Non- 121.4 BUN/Creatinine Ratio 16.1 (10-20) Calcium Level 8.6 mg/dl (8.5-10.1) Total Bilirubin 0.4 mg/dl (0.2-1) Direct Bilirubin < 0.1 mg/dl (0-0.2) Aspartate Amino Transf (AST/SGOT) 20 U/L (15-37) Alanine Aminotransferase (ALT/SGPT) 35 U/L (12-78) Alkaline Phosphatase 66 U/L (45-117) Total Creatine Kinase 183 U/L (39-308) Creatine Kinase MB 1.7 ng/ml (0.5-3.6) Creatine Kinase MB Ratio 0.9 (0-3.0) Troponin I < 0.015 ng/ml (0-0.045) Total Protein 6.6 gm/dl (6.4-8.2) Albumin 3.8 gm/dl (3.4-5.0) Lipase 179 U/L (73-393) Labs reviewed by ED physician. Medications Administered Medications (Trade) Dose Ordered Sig/Selma Route Start Time Stop Time Status Last Admin Dose Admin Hydromorphone HCl (Dilaudid Inj) 1 mg NOW STAT IV 4/13/18 11:15 09/06/17 11:19 DC 09/06/17 11:27 1 MG Metoclopramide HCl (Reglan Inj) 10 mg NOW STAT IV 09/06/17 11:15 09/06/17 11:19 DC 09/06/17 11:27 10 MG Famotidine (Pepcid Tab) 20 mg NOW STAT PO 09/06/17 11:15 09/06/17 11:19 DC 09/06/17 11:26 20 MG Sucralfate (Carafate Tab) 1 gm NOW STAT PO 09/06/17 11:15 09/06/17 11:19 DC 09/06/17 11:26 1 GM Lidocaine HCl (Viscous Lidocaine 2% Soln) 20 ml STK-MED ONCE .ROUTE 09/06/17 11:22 09/06/17 11:23 DC 09/06/17 11:30 20 ML Al Hydroxide/Mg Hydroxide (Maalox Susp) 30 ml STK-MED ONCE .ROUTE 09/06/17 11:22 09/06/17 11:23 DC 09/06/17 11:30 30 ML Hydromorphone HCl (Dilaudid Inj) 1 mg NOW STAT IV 09/06/17 12:38 09/06/17 12:39 DC 09/06/17 12:56 1 MG Hydromorphone HCl (Dilaudid Inj) 0.5 mg STK-MED ONCE .ROUTE 09/06/17 13:00 09/06/17 13:01 DC 09/06/17 13:04 0.5 MG ECG Per My Interpretation Indication: chest pain Rate (beats per minute): 64 Rhythm: normal sinus Findings: no ectopy, other (No ST elevations or depressions. ) ED Course 1110: Past medical records reviewed. The patient was evaluated in room C10. A complete history and physical examination was performed. 1115: Ordered Carafate Tab 1 gm PO, Pepcid Tab 20 mg PO, GI Cocktail 24 mL PO, Reglan Inj 10 mg IV, Dilaudid Inj 1 mg IV. 1238: Ordered Dilaudid Inj 1 mg IV. 1245: Upon reexamination the patient is resting comfortably. I discussed results and treatment plan with the patient. He verbalizes agreement and understanding. The patient is ready for discharge. Medical Decision Differential diagnosis: Etiologies such as cardiac ischemia, aortic dissection, pulmonary embolism, pneumonia, pneumothorax, musculoskeletal, infections, pericarditis, myocarditis , esophageal rupture, gastrointestinal, as well as others were entertained. This is a 22-year-old male who presents emergency department complaining of chest pain status post scope. Based on the patient's complaint as well as the scope patient was sent for CAT scan of the chest. He did receive oral contrast. There does not appear to be any acute process. He has a normal EKG as well as normal troponin. Patient was given Dilaudid here first pain as well as GI cocktail Pepcid and Carafate. Repeat examination revealed much improvement in the patient's symptoms. The patient relates that he has been having this pain for quite some time as he is had multiple cardiac workups here I suspect he can be safely discharged home for follow-up with gastroenterology. I did recommend that the patient receive Maalox 5 mL's before every meal and at bedtime along with Pepcid. Patient was in agreement with the treatment plan. Medication Reconcilliation Current Medication List: was personally reviewed by me Blood Pressure Screening Patient's blood pressure: Normal blood pressure Blood pressure disposition: Did not require urgent referral Impression Primary Impression: Chest pain Scribe Attestation The scribe's documentation has been prepared under my direction and personally reviewed by me in its entirety. I confirm that the note above accurately reflects all work, treatment, procedures, and medical decision making performed by me. Departure Information Dispostion Home / Self-Care Referrals Harsh Aguilar M.D. (PCP) Forms HOME CARE DOCUMENTATION FORM, IMPORTANT VISIT INFORMATION Patient Instructions Chest Pain - [facility], ED Chest Pain Atypical Unkn Cause, ED Chest Pain NonCardiac, My [facility] Additional Instructions Take 5 ml Maalox with every meal and at bedtime Clear liquid diet next 48 hours You received narcotic or benzodiazepene medication while in the emergency room today. This is an addictive medication that may cause drowziness as well as constipation. Do not drive, operate heavy machinery, or drink alcohol under the influence of this medication. You have been examined and treated today on an emergency basis only. This is not a substitute for, or an effort to provide, complete comprehensive medical care. It is impossible to recognize and treat all injuries or illnesses in a single emergency department visit. It is therefore important that you follow up closely with Dr Aguilar. Call as soon as possible for an appointment. Thank you for your time and consideration. I look forward to speaking with you again soon. Please don't hesitate to call us if you have any questions. Problem Qualifiers Primary Impression: Chest pain Chest pain type: unspecified Qualified Codes: R07.9 - Chest pain, unspecified
[2017-09-06] MEDS ORDERED: HYDROmorphone INJ 0.5 MG/0.5 ML SYR ONE (13:00)
[2017-09-06 13:12] VITALS: BP 129/57; PULSE 70; O2SAT 95
== END 2017-09-06 13:13 | disposition home or self-care (01) ==
LOC: EDBD 10:56 → C.EDC 10:57
DX: R07.9 Chest pain, unspecified (principal); F41.9 Anxiety disorder, unspecified; F32.9 Major depressive disorder, single episode, unspecified; Z87.01 Personal history of pneumonia (recurrent); F17.210 Nicotine dependence, cigarettes, uncomplicated; Z83.3 Family history of diabetes mellitus; Z82.49 Family history of ischemic heart disease and other diseases of the circulatory system; Z79.82 Long term (current) use of aspirin; Z79.899 Other long term (current) drug therapy; Z88.0 Allergy status to penicillin; Z88.1 Allergy status to other antibiotic agents; Z88.8 Allergy status to other drugs, medicaments and biological substances